=== PATIENT | male | born 1945 | race Caucasian/White ===

== ENCOUNTER 2017-02-18 17:41 | Inpatient (IN) ==
[2017-02-18] MEDS ORDERED: Naloxone 0.4 MG/ML INJ IVP PRN (21:32)
[2017-02-18] MEDS: Furosemide 40 MG/4 ML VIAL IVP SCH (22:04)
[2017-02-18] MEDS ORDERED: *HR* Dextrose 50 % in Water (Syg) 50 ML SYRINGE IVP PRN (22:09)
[2017-02-18] MEDS ORDERED: D5% in Water 1,000 ML IVC PRN (22:09)
[2017-02-18] MEDS ORDERED: Dextrose Gel 15 GM PO PRN ×2 (22:09)
--- NOTE | 2017-02-18 22:15 | Internal Med History&Physical ---
Date of Encounter: 02/18/17 Time of Encounter: 22:11 Assessment and Plan (1) Acute on chronic combined systolic and diastolic CHF, NYHA class 2 Current visit: Yes Status: Acute Patient with increased shortness of breath, chest tightness on exertion, and weight gain. BNP elevated to 691. Chest xray with small bilateral pleural effusions. Most recent echo 09/24/16 shows LVEF 35%, moderate global LV systolic dysfunction and mild LV diastolic dysfunction. 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 (2) Chest pain Current visit: Yes Status: Acute Patient reporting chest tightness with exertion accompanied by shortness of breath over the last 4-5 days. Patient has significant history of coronary artery disease, and congestive heart failure, ischemic cardiomyopathy. BNP elevated at 691, troponin normal at 0.01. EKG with sinus rhythm no changes from previous. Chest x-ray showed small bilateral pleural effusions. Chest tightness likely related to acute exacerbation of congestive heart failure, however will rule out ACS. 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 His creatinine is not out of line with previous values, however will consider this JESSICA. ABG due to cardio-renal with acute exacerbation of congestive heart failure. Lasix given for diuresis for congestive heart failure may or may not exacerbate the JESSICA. Check chemistry daily (5) CAD (coronary artery disease) Current visit: Yes Status: Chronic Patient with history of CAD with stents to LAD and Circumflex. He follows with Dr. Leyva as an outpatient. Continue betablocker, aspirin, Statin and imdur. Qualifiers: Coronary Disease-Associated Artery/Lesion type: [place] artery [place] vs. transplanted heart: [place] heart Associated angina: with stable angina Qualified Code(s): I25.118 - Atherosclerotic heart disease of [place] coronary artery with other forms of angina pectoris (6) Obstructive sleep apnea of adult Current visit: Yes Status: Chronic Respiratory therapy consulted for CPAP (7) DVT prophylaxis Current visit: Yes Status: Acute Antiembolic stockings Patient on Levaquin for history of paroxysmal atrial fibrillation, and additional prophylaxis not warranted Internal Medicine - H&P: HPI Chief complaint: shortness of breath and chest tightness Admitted From: Hospital to Hospital Transfer Plans for Post Hospital Care: Home History of present illness: Mr. Stout is a 71 year old male with type 2 diabetes, hypertension, paroxysmal atrial fibrillation coronary artery disease status post stents to LAD and circumflex, ischemic cardiomyopathy, congestive heart failure who presented to [facility] with complaints of shortness of breath on exertion, chest tightness on exertion, and weight gain. Patient reports that he noted increased shortness of breath about 4-5 days ago which has been worsening over time. He also reports chest tightness with activity in the last 4-5 days as well. He thinks he has gained about 6 pounds in the last 3 weeks. He denies any lightheadedness, headache, palpitations, wheezing, fever, chills, sweats. Patient does report a cough over the last week, nonproductive. Patient denies any nausea, vomiting, abdominal pain. Evaluation in the [facility] revealed elevated BNP of 691, normal troponin of 0.01. Creatinine was elevated at 1.39, up from previous value of 1.20, but not out of line with previous values. Chest x-ray showed bilateral pleural effusions. EKG shows sinus rhythm with no changes from previous. Patient reports he follows with Dr. Zamarripa as an outpatient and saw him last month. On my assessment, patient reports he is feeling much better. On exam, patient alert and oriented, in no acute distress. Heart has regular rate and rhythm. Lungs with mild crackles in bilateral bases. Abdomen soft nontender. Bilateral lower extremities with + 2 pitting edema. Past Med Surg Social Fam HX - Past Medical History Medical history: arthritis, cancer, cardiomyopathy, CHF, coronary artery disease , diabetes, GERD, hypertension, thyroid disease Psychiatric history: no psych history - Past Surgical History Surgical History: angioplasty/stent, cancer surgery, herniorrhaphy, orthopedic, other, thyroidectomy, other - Social History Smoking Status: Never smoker Smokeless Tobacco Status: No Alcohol use: none Drug use: none - Family History Father Living Status: Hx Family Cardiac Disorders: Yes Hx Family Cancer: No Hx Family GI Disorders: No Mother Living Status: Still Living Internal Medicine - H&P: Meds Gabapentin [Neurontin] 600 mg PO TID 03/23/15 [History] Levothyroxine [Synthroid] 200 mcg PO DAILY 03/23/15 [History] Loratadine [Claritin] 10 mg PO DAILY 03/23/15 [History] Aspirin 81 mg PO DAILY tab.chew 04/03/15 [Rx] Atorvastatin [Lipitor] 40 mg PO HS #30 tablet 04/03/15 [Rx] metFORMIN [Glucophage] 1,000 mg PO BID 07/07/16 [History] Apixaban [Eliquis] 2.5 mg PO BID #30 tablet 07/14/16 [Rx] Carvedilol [Coreg] 6.25 mg PO BIDWM #60 tablet 07/14/16 [Rx] Fluticasone Propionate Nasal [Flonase] 50 mcg NS BID bottle 07/14/16 [Rx] Isosorbide MONOnitrate (24 HR) [Imdur] 30 mg PO DAILY #30 tab.er.24h 07/14/16 [ Rx] Montelukast [Singulair] 10 mg PO HS #30 tablet 07/14/16 [Rx] Nicotine Patch [Nicoderm] 21 mg TD DAILY PRN #30 patch.td24 07/14/16 [Rx] OxyCODONE Immed Rel [Roxicodone 5 MG] 10 mg PO Q6HR PRN #20 tablet 07/14/16 [Rx] Spironolactone [Aldactone] 12.5 mg PO DAILY #30 tablet 07/14/16 [Rx] Valsartan [Diovan] 80 mg PO DAILY #30 tablet 07/14/16 [Rx] predniSONE [PredniSONE] 40 mg PO DAILY #30 tablet 07/14/16 [Rx] Benzonatate [Tessalon] 100 mg PO PRN 02/18/17 [History] DiphenhydraMINE [Benadryl] 25 mg PO HS PRN 02/18/17 [History] Furosemide [Lasix] 20 mg PO HS 02/18/17 [History] Furosemide [Lasix] 40 mg PO QAM 02/18/17 [History] Insulin DETEMIR [Levemir] 60 unit SQ DAILY 02/18/17 [History] Allergies Penicillins Allergy (Verified 03/23/15 09:54) Hives ERNST Inhibitors Adverse Reaction (Verified 03/23/15 09:53) Cough All Systems PM: A 10-system review of systems was performed and is negative for pertinent findings except as documented above in the HPI. - Constitutional Constitutional: no chills, no fever(s), no night sweats - EENT Eyes: no change in vision, no discharge, no pain, no photophobia Ears: no ear discharge, no ear pain, no tinnitus Nose, mouth and throat: no dysphagia, no nasal discharge, no neck pain, no sore throat - Cardiovascular Cardiovascular ROS IM: chest pain, dyspnea, dyspnea on exertion, no diaphoresis , no lightheadedness, no palpitations, no syncope - Respiratory Respiratory: cough, dyspnea, dyspnea on exertion, no wheezing, no excessive phlegm production - Gastrointestinal Gastrointestinal: no abdominal pain, no diarrhea, no hematemesis, no hematochezia, no melena, no nausea, no vomiting - Musculoskeletal Musculoskeletal ROS IM: no numbness, no tingling - Integumentary Integumentary IM: no rash, no unusual bruising - Neurological Neurological ROS: no confusion, no convulsions, no focal weakness, no numbness, no tingling, no tremor(s) - Hematologic/Lymphatic Hematologic/Lymphatic: no easy bruising - Constitutional Vitals: Temp Pulse Resp BP Pulse Ox 97.8 F 77 19 180/104 98 02/18/17 20:17 02/18/17 20:17 02/18/17 20:17 02/18/17 20:17 02/18/17 20:17 General appearance: Present: A&O X 3, morbidly obese, pleasant, no acute distress - Head Head exam: Present: atraumatic, normocephalic - Eye Eye exam: Present: PERRL, conjuntiva pink, sclera anicteric Pupils: Present: PERRL - Neck Neck exam general surgery: Present: supple, trachea midline. Absent: lymphadenopathy - Respiratory Respiratory exam: Present: rales (mild in bilateral bases). Absent: accessory muscle use, rhonchi, wheezes - Cardiovascular Cardiovascular exam: Present: RRR, +S1, +S2. Absent: diastolic murmur, gallop, rubs, systolic murmur - GI/Abdominal GI/Abdominal exam: Present: normal bowel sounds, soft, no peritoneal signs. Absent: distended, tenderness - Extremities Exam Extremities exam: Present: pedal edema (+2 BLE edema), warm, radial pulses palpable and symetrical. Absent: calf tenderness, cyanotic - Neurological Exam Neurological exam: Present: CN II-XII intact, oriented X3, no focal deficits. Absent: pronater drift, facial droop, speech deficit - Skin Skin exam: Present: dry, intact Internal Med - H&P Results - Labs Labs: Labs from [facility]: WBC 7.2 Hgb 12.5 Hct 36.8 Plt 201 Na 142 K 4.0 Cl 105 Co2 25 BUN 26 Cr 1.39 Glu 199 BNP 691 Trop 0.01
[2017-02-18] MEDS: Insulin LISPRO 300 UNITS/3 ML VIAL SQ SCH (22:36)
[2017-02-18] MEDS: Gabapentin 300 MG CAPSULE PO SCH (22:38)
[2017-02-18] MEDS: APIXABAN 5 MG TABLET PO SCH (22:38)
[2017-02-19 06:13] LABS: Basophils # 0.1 K/mcL (0.0-0.2); Basophils % 0.8 %; Eosinophils # 0.2 K/mcL (0.0-0.6); Eosinophils % 2.6 %; Hematocrit 39.2 % (37.5-50.1); Hemoglobin 12.5 g/dL (12.9-16.9); Immature Granulocytes % 0.5 % (0-4); Lymphocytes # 2.3 K/mcL (0.6-4.6); Lymphocytes % 31.1 %; Mean Corpuscular HGB Conc 31.9 g/dL (31.6-35.5); Mean Corpuscular Hemoglobin 27.4 pg (28.0-33.3); Mean Corpuscular Volume 85.8 fL (83.0-100.0); Mean Platelet Volume 10.8 fL (9.4-12.4); Monocytes # 0.7 K/mcL (0.0-1.3); Neutrophils # 4.1 K/mcL (1.6-8.9); Platelet Count 221 K/mcL (140-400); Red Blood Count 4.57 M/mcL (4.19-5.50); Red Cell Distribution Width 13.6 % (11.5-14.5)
[2017-02-19] MEDS: Acetaminophen 325 MG TABLET PO PRN (06:28)
[2017-02-19 06:45] LABS: Hemoglobin A1C 9.2 %
[2017-02-19 07:00] LABS: BUN/Creatinine Ratio 20 (6-26); Blood Urea Nitrogen 26 mg/dL (8-26); Calcium 7.6 mg/dL (8.6-10.8); Carbon Dioxide 27 mEq/L (19-29); Chloride 104 mEq/L (98-109); Glucose 243 mg/dL (70-99); Osmolality,Calculated 303 (280-300); Sodium 140 mEq/L (136-145); eGFR For African Americans > 60 (> 60); eGFR For Non-African Americans 55 (> 60)
[2017-02-19] MEDS: APIXABAN 5 MG TABLET PO SCH ×2 (09:16→20:29)
[2017-02-19] MEDS: Aspirin 81 MG TAB.CHEW PO SCH (09:19)
[2017-02-19] MEDS: Isosorbide MONOnitrate (24 HR) 30 MG TAB.ER.24H PO SCH (09:19)
[2017-02-19] MEDS: Gabapentin 300 MG CAPSULE PO SCH ×3 (09:23→20:29)
[2017-02-19] MEDS: Furosemide 40 MG/4 ML VIAL IVP SCH ×2 (09:24→16:54)
[2017-02-19] MEDS: Insulin LISPRO 300 UNITS/3 ML VIAL SQ SCH ×4 (09:25→21:58)
[2017-02-19] MEDS: Insulin DETEMIR 100 UNIT/ML X5UNITS SQ SCH (10:18)
--- NOTE | 2017-02-19 18:52 | Internal Med Progress Note ---
Date of Encounter: 02/19/17 Time of Encounter: 16:00 - Assessment and plan (1) Congestive heart failure Current Visit: No Status: Acute Assessment and plan: Acute on chronic combined heart failure. Patient's last echocardiogram was in September and revealed an ejection fraction 35%. He is also on diuretics at home. Pleural effusion noted, he has had to have thoracenteses in the past, will obtain chest CT. We will continue to diurese with IV furosemide. (2) Pleural effusion Current Visit: No Status: Acute Assessment and plan: See prior note for CHF (3) Generalized weakness Current Visit: Yes Status: Acute Assessment and plan: Patient stating he was in inpatient rehabilitation up until approximately 10-12 weeks ago. He states that he feels as if he was discharged to early. We will bring OT and PT on board. (4) Coronary artery disease Current Visit: No Status: Chronic Qualifiers: Coronary Disease-Associated Artery/Lesion type: [place] artery [place] vs. transplanted heart: [place] heart Associated angina: without angina Qualified Code(s): I25.10 - Atherosclerotic heart disease of [place] coronary artery without angina pectoris (5) Cough Current Visit: No Status: Acute Assessment and plan: Acute on chronic. Currently nonproductive. Chest CT pending. We will continue diuresing. He is a never smoker (6) KENDRA (obstructive sleep apnea) Current Visit: No Status: Chronic Assessment and plan: Patient stating he was compliant with his CPAP machine until he returned from being at inpatient rehabilitation approximate 10-12 weeks ago and he states that when he got home, he never hooked the machine back up. This is likely contributing to a lot of his symptoms including daytime fatigue and weakness. We will order CPAP while admitted. (7) DVT prophylaxis Current Visit: Yes Status: Acute Assessment and plan: home eliquis continued (8) Acute respiratory failure Current Visit: No Status: Acute Assessment and plan: Patient is not on oxygen at home, currently on 2 L per nasal cannula continuously here. Chest imaging pending. We will continue to diurese. CPAP at bedtime. (9) CAD (coronary artery disease), [place] coronary artery Current Visit: No Status: Chronic Assessment and plan: Patient denies chest pain Qualifiers: [place] vs. transplanted heart: [place] heart Associated angina: angina presence unspecified Qualified Code(s): I25.10 - Atherosclerotic heart disease of [place] coronary artery without angina pectoris (10) Hypertension Current Visit: No Status: Chronic Assessment and plan: Uncontrolled. At home, patient is on Imdur 30 mg daily, furosemide, carvedilol 25 mg twice a day. Renal functioning is stable. He has a listed intolerance to irene inhibitors with cough. Will add losartan. Hydralazine IV as needed Qualifiers: Hypertension type: essential hypertension Qualified Code(s): I10 - Essential (primary) hypertension (11) Hypothyroidism Current Visit: No Status: Chronic Assessment and plan: TSH checked in June 2016, normal Qualifiers: Hypothyroidism type: postoperative Qualified Code(s): E89.0 - Postprocedural hypothyroidism (12) CKD (chronic kidney disease) stage 3, GFR 30-59 ml/min Current Visit: No Status: Chronic Assessment and plan: Consistent with his baseline, will continue to trend (13) Atrial fibrillation Current Visit: No Status: Chronic Assessment and plan: Rate controlled, Eliquis for anticoagulation Qualifiers: Atrial fibrillation type: chronic Qualified Code(s): I48.2 - Chronic atrial fibrillation (14) Type 2 diabetes mellitus Current Visit: Yes Status: Chronic Assessment and plan: Uncontrolled, A1c 9.2%. Continue sliding scale while admitted. 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 On examination, patient sitting upright on the side of his bed. Patient stating he is still short of breath but has improved since he has been here. He states that he has been feeling weak in the morning and progressively starts to feel better throughout the day. He is also endorsing a nonproductive cough. He denies lower extremity swelling. He said that he recently got out of inpatient rehabilitation approximately 10-12 weeks ago and he feels as if he was discharged to early. - Constitutional Vitals: Temp Pulse Resp BP Pulse Ox 97.8 F 76 20 176/95 95 02/19/17 15:26 02/19/17 15:26 02/19/17 15:26 02/19/17 15:26 02/19/17 15:26 General appearance: Present: A&O X 3, morbidly obese, pleasant, no acute distress, answers questions appropriately - Head Head exam: Present: atraumatic, normocephalic - Eye Eye exam: Present: PERRL, conjuntiva pink, sclera anicteric Pupils: Present: PERRL - Neck Neck exam general surgery: Present: supple, trachea midline. Absent: lymphadenopathy - Respiratory Respiratory exam: Present: decreased breath sounds. Absent: accessory muscle use, rales, respiratory distress, rhonchi, wheezes - Cardiovascular Cardiovascular exam: Present: RRR, +S1, +S2. Absent: diastolic murmur, gallop, rubs, systolic murmur - GI/Abdominal GI/Abdominal exam: Present: distended, normal bowel sounds, soft, no peritoneal signs. Absent: tenderness - Extremities Exam Extremities exam: Present: pedal edema (trace, nonpitting), warm, radial pulses palpable and symetrical. Absent: calf tenderness, cyanotic - Neurological Exam Neurological exam: Present: alert, CN II-XII intact, oriented X3, no focal deficits, strengths equal and symetr throughout. Absent: pronater drift, facial droop, speech deficit - Skin Skin exam: Present: dry, intact, pallor, warm Internal Medicine: Result - Labs CBC & Chem 7: 02/19/17 03:51 02/19/17 03:51 Labs: Short CBC 02/19/17 Range/Units 03:51 WBC 7.3 (4.3-11.1) K/mcL Hgb 12.5 L (12.9-16.9) g/dL Hct 39.2 (37.5-50.1) % Plt Count 221 (140-400) K/mcL Neutrophils # 4.1 (1.6-8.9) K/mcL BMP 02/19/17 03:51 Sodium 140 Potassium 4.0 Chloride 104 Carbon Dioxide 27 BUN 26 Creatinine 1.29 H Glucose 243 H Calcium 7.6 L Cardiac Enzymes 02/18/17 02/19/17 Range/Units 22:04 03:51 Troponin I 0.02 0.02 (0-0.03) ng/mL Consult Discharge Plan - Plan Referrals: Saloni Lombardo, INTERNAL AUDIT DIRECTOR [Primary Care Provider] - 02/23/17 2:00 pm
[2017-02-20 06:03] LABS: Basophils # 0.1 K/mcL (0.0-0.2); Basophils % 1.1 %; Eosinophils # 0.2 K/mcL (0.0-0.6); Eosinophils % 2.6 %; Hematocrit 36.6 % (37.5-50.1); Immature Granulocytes % 0.5 % (0-4); Lymphocytes # 2.2 K/mcL (0.6-4.6); Lymphocytes % 33.8 %; Mean Corpuscular HGB Conc 32.8 g/dL (31.6-35.5); Mean Corpuscular Hemoglobin 28.1 pg (28.0-33.3); Mean Corpuscular Volume 85.7 fL (83.0-100.0); Mean Platelet Volume 10.9 fL (9.4-12.4); Monocytes # 0.7 K/mcL (0.0-1.3); Monocytes % 9.8 %; Neutrophils # 3.5 K/mcL (1.6-8.9); Platelet Count 190 K/mcL (140-400); Red Blood Count 4.27 M/mcL (4.19-5.50); Red Cell Distribution Width 13.8 % (11.5-14.5); Segmented Neutrophils % 52.2 %
[2017-02-20 06:08] LABS: BUN/Creatinine Ratio 22 (6-26); Blood Urea Nitrogen 21 mg/dL (8-26); Calcium 7.4 mg/dL (8.6-10.8); Carbon Dioxide 29 mEq/L (19-29); Chloride 104 mEq/L (98-109); Glucose 167 mg/dL (70-99); Osmolality,Calculated 297 (280-300); Potassium 3.2 mEq/L (3.5-4.5); Sodium 140 mEq/L (136-145); eGFR For African Americans > 60 (> 60); eGFR For Non-African Americans > 60 (> 60)
[2017-02-20] MEDS: APIXABAN 5 MG TABLET PO SCH (08:25)
--- NOTE | 2017-02-20 09:03 | Internal Med Progress Note ---
Date of Encounter: 02/20/17 Time of Encounter: 08:00 - Assessment and plan (1) Congestive heart failure Current Visit: No Status: Acute Assessment and plan: Acute on chronic combined heart failure. Patient's last echocardiogram was in September and revealed an ejection fraction 35%. He is also on diuretics at home. Pleural effusion noted on plain films and he has had to have thoracenteses in the past, so a chest CT was obtained which revealed moderate to large pleural effusion on the right and a small pleural effusion on the left. Pulmonology was brought on board however patient declines thoracentesis at this time. In review of his chart, back in 2014, patient had bilateral thoracenteses performed per IR but remained dyspneic so pulmonology was brought on board at that time who performed another thoracentesis and removed 700 mL of serosanguineous fluid at that time consistent with transudative effusion. He states that he does not feel as short of breath as he did last time and would like to avoid thoracentesis if possible. Pulmonology will remain on board. Possible Pleurx catheter outpatient to be considered. Patient was again educated on fluid and sodium restricted diet. In review of his chart, patient has been educated numerous times, but continues to be noncompliant. We will continue to diurese with IV furosemide. Renal functioning currently normal; will trend closely. ITS Impressions Chest x-ray from [place] impression: Atelectasis or infiltrate in the right lung base. Right pleural effusion. Small left effusion. 02/18/17 @14[address]. [address] 02/19/17 18:54 IMPRESSION: 1. Moderate to large right and small left pleural effusion and associated atelectasis. Effusions of slightly increased compared with prior exam from 2016. Consolidative changes within the right lung base do demonstrate some air bronchograms. Findings may reflect atelectasis associated with the effusion, however superimposed infectious process would be difficult to exclude in the appropriate clinical setting. 2. Moderate pericardial effusion which is slightly increased in size compared with previous exam. 3. Coronary artery atherosclerotic disease. 4. Cholelithiasis. D/ / Crispin Alvarez MD / Crispin Alvarez MD Interpreting Provider: Crispin Alvarez MD (2) Pleural effusion Current Visit: No Status: Acute Assessment and plan: See prior note for CHF. Patient declining thoracentesis at this time. Will continue to diurese (3) Pericardial effusion Current Visit: Yes Status: Acute Assessment and plan: Chest CT revealing moderate pericardial effusion increased from prior exam. Repeat echo ordered and is pending. Patient's last echo was in September revealed an ejection fraction 35%. Cardiology brought on board. ITS Impressions Chest CT 02/19/17 18:54 IMPRESSION: 1. Moderate to large right and small left pleural effusion and associated atelectasis. Effusions of slightly increased compared with prior exam from 2016. Consolidative changes within the right lung base do demonstrate some air bronchograms. Findings may reflect atelectasis associated with the effusion, however superimposed infectious process would be difficult to exclude in the appropriate clinical setting. 2. Moderate pericardial effusion which is slightly increased in size compared with previous exam. 3. Coronary artery atherosclerotic disease. 4. Cholelithiasis. D/ / Crispin Alvarez MD / Crispin Alvarez MD Interpreting Provider: Crispin Alvarez MD (4) Generalized weakness Current Visit: Yes Status: Acute Assessment and plan: Patient stating he was in inpatient rehabilitation up until approximately 10-12 weeks ago. He states that he feels as if he was discharged to early from rehab. OT and PT brought on board- awaiting recommendations. (5) Coronary artery disease Current Visit: No Status: Chronic Qualifiers: Coronary Disease-Associated Artery/Lesion type: [place] artery [place] vs. transplanted heart: [place] heart Associated angina: without angina Qualified Code(s): I25.10 - Atherosclerotic heart disease of [place] coronary artery without angina pectoris (6) Cough Current Visit: No Status: Acute Assessment and plan: Acute on chronic. Currently nonproductive. Chest CT revealing pleural effusions. We will continue diuresing. He is a never smoker and is not on oxygen at home. He has also been noncompliant with his CPAP. (7) KENDRA (obstructive sleep apnea) Current Visit: No Status: Chronic Assessment and plan: Patient stating he was compliant with his CPAP machine until he returned from being at inpatient rehabilitation approximate 10-12 weeks ago and he states that when he got home, he never hooked the machine back up. This is likely contributing to a lot of his symptoms including daytime fatigue and weakness. We will order CPAP while admitted. (8) DVT prophylaxis Current Visit: Yes Status: Acute Assessment and plan: home eliquis currently being held for possible thoracentesis- will order IPCs (9) Acute respiratory failure Current Visit: No Status: Acute Assessment and plan: Patient is not on oxygen at home, currently on 2 L per nasal cannula continuously here. We will continue to diurese. CPAP at bedtime. (10) CAD (coronary artery disease), [place] coronary artery Current Visit: No Status: Chronic Assessment and plan: Patient denies chest pain Qualifiers: [place] vs. transplanted heart: [place] heart Associated angina: angina presence unspecified Qualified Code(s): I25.10 - Atherosclerotic heart disease of [place] coronary artery without angina pectoris (11) Hypertension Current Visit: No Status: Chronic Assessment and plan: Uncontrolled. At home, patient is on Imdur 30 mg daily, furosemide, carvedilol 25 mg twice a day. Renal functioning is stable. He has a listed intolerance to irene inhibitors with cough. Losartan added to his regimen. Hydralazine IV as needed. Will continue to trend and adjust medications accordingly. Qualifiers: Hypertension type: essential hypertension Qualified Code(s): I10 - Essential (primary) hypertension (12) Hypothyroidism Current Visit: No Status: Chronic Assessment and plan: TSH checked in June 2016, normal Qualifiers: Hypothyroidism type: postoperative Qualified Code(s): E89.0 - Postprocedural hypothyroidism (13) CKD (chronic kidney disease) stage 3, GFR 30-59 ml/min Current Visit: No Status: Chronic Assessment and plan: Current renal functioning normal- will trend closely with diuresis. (14) Atrial fibrillation Current Visit: No Status: Chronic Assessment and plan: Rate controlled, Eliquis for anticoagulation- held/IPCs ordered Qualifiers: Atrial fibrillation type: chronic Qualified Code(s): I48.2 - Chronic atrial fibrillation (15) Type 2 diabetes mellitus Current Visit: Yes Status: Chronic Assessment and plan: Uncontrolled, A1c 9.2%. Continue sliding scale while admitted. Qualifiers: Diabetes mellitus complication status: with unspecified complications Diabetes mellitus detention insulin use: with terminal system operator use Qualified Code(s) : E11.8 - Type 2 diabetes mellitus with unspecified complications; Z79.4 - long term care phlebotomist (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 (16) Hypokalemia Current Visit: Yes Status: Acute Assessment and plan: Mild, will replete and trend (17) Morbid obesity with BMI of 40.0-44.9, adult Current Visit: Yes Status: Chronic - Subjective Interval history: Patient seen and examined. On examination, patient sitting upright in bed. He states he did not sleep very well last night. He states he is tired. He states he is still short of breath and states he feels "about the same" as yesterday. He states he is eating well. - Constitutional Vitals: Temp Pulse Resp BP Pulse Ox 98.5 F 79 17 171/99 94 02/20/17 07:34 02/20/17 07:34 02/20/17 07:34 02/20/17 07:34 02/20/17 07:34 General appearance: Present: mild distress, A&O X 3, morbidly obese, pleasant, answers questions appropriately - Head Head exam: Present: atraumatic, normocephalic - Eye Eye exam: Present: PERRL, conjuntiva pink, sclera anicteric Pupils: Present: PERRL - Neck Neck exam general surgery: Present: supple, trachea midline. Absent: lymphadenopathy - Respiratory Respiratory exam: Present: accessory muscle use, decreased breath sounds, respiratory distress (mild dyspnea with conversation), rhonchi. Absent: rales, wheezes - Cardiovascular Cardiovascular exam: Present: RRR, +S1, +S2. Absent: diastolic murmur, gallop, rubs, systolic murmur - GI/Abdominal GI/Abdominal exam: Present: distended, normal bowel sounds, soft, no peritoneal signs. Absent: tenderness - Extremities Exam Extremities exam: Present: pedal edema (trace, nonpitting), warm, radial pulses palpable and symetrical. Absent: calf tenderness, cyanotic - Neurological Exam Neurological exam: Present: alert, CN II-XII intact, oriented X3, no focal deficits, strengths equal and symetr throughout. Absent: pronater drift, facial droop, speech deficit - Skin Skin exam: Present: dry, intact, pallor, warm Internal Medicine: Result - Labs CBC & Chem 7: 02/20/17 04:47 02/20/17 04:47 Labs: Short CBC 02/20/17 Range/Units 04:47 WBC 6.6 (4.3-11.1) K/mcL Hgb 12.0 L (12.9-16.9) g/dL Hct 36.6 L (37.5-50.1) % Plt Count 190 (140-400) K/mcL Neutrophils # 3.5 (1.6-8.9) K/mcL BMP 02/20/17 04:47 Sodium 140 Potassium 3.2 L Chloride 104 Carbon Dioxide 29 BUN 21 Creatinine 0.94 Glucose 167 H Calcium 7.4 L - Impressions Impressions Chest CT 02/19/17 18:54 IMPRESSION: 1. Moderate to large right and small left pleural effusion and associated atelectasis. Effusions of slightly increased compared with prior exam from 2016. Consolidative changes within the right lung base do demonstrate some air bronchograms. Findings may reflect atelectasis associated with the effusion, however superimposed infectious process would be difficult to exclude in the appropriate clinical setting. 2. Moderate pericardial effusion which is slightly increased in size compared with previous exam. 3. Coronary artery atherosclerotic disease. 4. Cholelithiasis. D/ / Crispin Alvarez MD / Crispin Alvarez MD Interpreting Provider: Crispin Alvarez MD Consult Discharge Plan - Plan Referrals: Saloni Lombardo CNP [Primary Care Provider] - 02/23/17 2:00 pm
[2017-02-20] MEDS: Insulin LISPRO 300 UNITS/3 ML VIAL SQ SCH ×4 (09:08→21:14)
[2017-02-20] MEDS: Gabapentin 300 MG CAPSULE PO SCH ×3 (09:53→21:14)
[2017-02-20] MEDS: Insulin DETEMIR 100 UNIT/ML X5UNITS SQ SCH (09:53)
[2017-02-20] MEDS: Furosemide 40 MG/4 ML VIAL IVP SCH ×2 (09:53→16:56)
[2017-02-20] MEDS: Isosorbide MONOnitrate (24 HR) 30 MG TAB.ER.24H PO SCH (09:53)
[2017-02-20] MEDS: Aspirin 81 MG TAB.CHEW PO SCH (09:53)
--- NOTE | 2017-02-20 13:59 | Cardiology Consult Note ---
Date of Encounter: 02/20/17 Time of Encounter: 13:54 Assessment and Plan (1) Pericardial effusion Current Visit: Yes Status: Acute CT scan showed moderate pericardial effusion which is slightly increased in size compared with previous exam. TTE 04/2016 showed small pericardial effusion with no tamponade and TTE 09/2016 did not mention pericardial effusion. Agree with checking TTE to better evaluate. He is currently hemodynamically stable. (2) Ischemic cardiomyopathy Current Visit: No Status: Acute (3) Coronary artery disease Current Visit: No Status: Chronic H/o previous cardiac stents. Last [facility] in 2014. Continue asa, statin, and bb. He denies chest pain. Qualifiers: Coronary Disease-Associated Artery/Lesion type: [place] artery [place] vs. transplanted heart: [place] heart Associated angina: without angina Qualified Code(s): I25.10 - Atherosclerotic heart disease of [place] coronary artery without angina pectoris (4) Acute on chronic combined systolic and diastolic congestive heart failure Current Visit: Yes Status: Acute Acute on chronic systolic and diastolic CHF. EF 41% on MRI 05/2016. 35% on TTE . CHF Likely exacerbated by increased salt and fluid intake. Agree with IV lasix. Found to have mod-large pericardial effusion on CT. Pulmonology following. Strict I&O and daily weights. Low sodium diet reviewed. Fluid restriction reviewed. Continue carvedilol. Increase cozaar for hypertension. Discussion w patient/family: The assessment and plan as outlined above was discussed with the patient and/or family members who expressed understanding and agreement. All questions were answered. Thank you for involving us in the care of your patient. Please call with any questions. History of Present Illness Consult date: 02/20/17 Requesting physician: Anna Tripp Consult reason: Pericardial effusion Chief complaint: SOB, orthopnea, and BLE increasing over past week and a half. History of present illness: Mr. Stout is a 71 year old male with a history of CAD, s/p PCI to LAD and circumflex arteries (03/2015), ischemic CMP , chronic systolic and diastolic CHF , CKD, DM, KENDRA/CPAP, PAF on eliquis, and HTN. He presented to the hospital with the c/o increasing SOB, BLE edema, and orthopnea over the past 10 days. He admits to increase fluid and salt intake over the past week. Previous cardiac testing: [facility] 03/23/2015: Left main normal. LAD mid 99% stenosis (SUDHA placed). Circumflex mid 95% stenosis (SUDHA placed). RCA normal (small, nondominant). TTE 08/01/2015: EF 35-40%. Small pericardial effusion. Limited echocardiogram 05/07/2016: EF 35%. Mild concentric LVH. Small pericardial effusion. TTE 09/2016: EF 35%. Borderline dilate LV size. Mild concentric LV hypertrophy. Moderate global LV systolic dysfunction. Mild LV diastolic dysfunction. Normal RV structure and function. Severely dilated left atrium. No evidence of pulmonary hypertension. No significant valvular dysfunction. Cardiac MRI 06/03/2016: EF 41%. Mildly dilated left ventricle with mild to moderate LV systolic dysfunction. Mild to moderate concentric LVH. Delayed gadolinium enhancement most recent normal myocardium. All segments are completely viable. Normal RV size and function. Trileaflet aortic valve with restriction in movement of the noncoronary leaflet. No aortic regurgitation. No significant aortic stenosis. Small to moderate circumferential pericardial effusion. Past Med Surg Social Fam HX - Past Medical History Medical history: arthritis, cancer, cardiomyopathy, CHF, coronary artery disease , diabetes, GERD, hypertension, thyroid disease Psychiatric history: no psych history - Past Surgical History Surgical History: angioplasty/stent, cancer surgery, herniorrhaphy, orthopedic, other, thyroidectomy, other - Social History Smoking Status: Never smoker Smokeless Tobacco Status: No Alcohol use: none Drug use: none - Family History Mother Living Status: Still Living Father Living Status: Hx Family Cardiac Disorders: Yes Hx Family Cancer: No Hx Family GI Disorders: No Medications and Allergies Gabapentin [Neurontin] 600 mg PO TID 03/23/15 [History] Levothyroxine [Synthroid] 200 mcg PO DAILY 03/23/15 [History] Aspirin 81 mg PO DAILY tab.chew 04/03/15 [Rx] Atorvastatin [Lipitor] 40 mg PO HS #30 tablet 04/03/15 [Rx] metFORMIN [Glucophage] 1,000 mg PO BID 07/07/16 [History] Apixaban [Eliquis] 2.5 mg PO BID #30 tablet 07/14/16 [Rx] Isosorbide MONOnitrate (24 HR) [Imdur] 30 mg PO DAILY #30 tab.er.24h 07/14/16 [ Rx] Montelukast [Singulair] 10 mg PO HS #30 tablet 07/14/16 [Rx] Benzonatate [Tessalon] 100 mg PO TID PRN 02/18/17 [History] DiphenhydraMINE [Benadryl] 25 mg PO HS PRN 02/18/17 [History] Furosemide [Lasix] 20 mg PO HS 02/18/17 [History] Furosemide [Lasix] 40 mg PO QAM 02/18/17 [History] Insulin DETEMIR [Levemir] 60 unit SQ DAILY 02/18/17 [History] Calcium Carbonate/Vitamin D3 [Calcium 600 + Vit D Tablet] 1 tab PO DAILY [History] Carvedilol [Coreg] 25 mg PO BID 02/19/17 [History] Docusate [Colace] 100 mg PO DAILY PRN 02/19/17 [History] Fluticasone Propionate Nasal [Flonase] 1 spray NS BID PRN 02/19/17 [History] Insulin LISPRO [HumaLOG] 0 units SQ TIDWM MDD PER SLIDING SCALE 02/19/17 [ History] Potassium Chloride [Klor-Con 10] 20 meq PO DAILY 02/19/17 [History] Allergies Penicillins Allergy (Verified 03/23/15 09:54) Hives ERNST Inhibitors Adverse Reaction (Verified 03/23/15 09:53) Cough All Systems Review: A 10-system review of systems was performed and is negative for pertinent findings except as documented above in the HPI. Physical Examination Vital Signs, Last 4 Hours Temp Pulse Resp BP Pulse Ox 02/20/17 12:33 93 02/20/17 11:13 98.1 F 80 19 176/99 94 General: Conversant, No Apparent Distress, Other (Unkept male.) HEENT: Atraumatic, Normocephaly, Mucus Membranes Moist Neck: No JVD, Normal carotid pulses Cardiac: Reg Rate and Rhythm, Normal S1 and S2, No Murmur, Other (currently NSR on telemetry) Lungs: No Wheeze, Rales, Rhonchi, Other (Lungs diminished on right. ) Neuro: Alert and responsive, No focal deficits noted Abdomen: Soft, Non-Tender Skin: No rashes noted on visualized skin Musculoskeletal: No Chest Wall Tenderness Extremities: No Clubbing, No Cyanosis, Normal Pulses, Other (1+ edema up to knees.) Results 02/20/17 04:47 02/20/17 04:47 Lab Results 02/20/17 02/20/17 04:47 04:47 WBC 6.6 Hgb 12.0 L Hct 36.6 L Plt Count 190 Sodium 140 Potassium 3.2 L Chloride 104 Carbon Dioxide 29 BUN 21 Creatinine 0.94 Glucose 167 H Calcium 7.[address] 02/19/17 18:54 IMPRESSION: 1. Moderate to large right and small left pleural effusion and associated atelectasis. Effusions of slightly increased compared with prior exam from 2016. Consolidative changes within the right lung base do demonstrate some air bronchograms. Findings may reflect atelectasis associated with the effusion, however superimposed infectious process would be difficult to exclude in the appropriate clinical setting. 2. Moderate pericardial effusion which is slightly increased in size compared with previous exam. 3. Coronary artery atherosclerotic disease. 4. Cholelithiasis. D/ / Crispin Alvarez MD / Crispin Alvarez MD Interpreting Provider: Crispin Alvarez MD - Imaging and Cardiology Echo: report reviewed Cardiac cath: report reviewed - EKG Interpretation EKG results cardiology: personally reviewed (Sr with no acute ST changes.) Consult Discharge Plan - Plan Referrals: Saloni Lombardo, GENE [Primary Care Provider] - 02/23/17 2:00 pm
[2017-02-20] MEDS ORDERED: Perflutren Lipid Microsphere 1.3 ML in 0.9 % Sodium Chloride 8.7 ML IVP ONE (15:44)
--- NOTE | 2017-02-20 15:57 | Pulmonology Consult Note ---
Date of Encounter: 02/20/17 Time of Encounter: 07:45 Assessment and Plan (1) Pleural effusion due to CHF (congestive heart failure) Current Visit: No Status: Chronic I have personally reviewed CT images with evidence of bilateral pleural effusion and discussed with the patient in the presence of the nurse and the primary team about thoracentesis for mainly therapeutic reasons and to help his shortness of breath, however patient declined and stated his breathing is stable and does not feel he needs any procedures at this time. Patient is on anticoagulation and it will need to be on hold for at least 24 hours if patient decided to have the procedure. More importantly I feel he might benefit from Pleurx pleural catheter to manage his chronic pleural effusion which can be done as outpatient. Primary team to call and we will follow-up should patient has more distress and changed his mind regarding thoracentesis. (2) Stented coronary artery Current Visit: No Status: Resolved (3) Obstructive sleep apnea of adult Current Visit: Yes Status: Chronic This can be managed as outpatient. (4) Pleural effusion Current Visit: No Status: Acute History of Present Illness Consult date: 02/20/17 Requesting physician: Anna Tripp Reason for consult: pleural effusion Chief complaint: Shortness of breath History of present illness: This is a pleasant 71-year-old male with multiple medical problems, mainly cardiovascular with ischemic cardiomyopathy and was found to have bilateral pleural effusion with pericardial effusion on his CT chest and pulmonary consult for evaluation of thoracentesis. Patient stated he had thoracentesis in the past and he had major bleeding after the procedure and might have helped his breathing at that time. Patient is on anticoagulation for his paroxysmal atrial fibrillation. At this time he denies any significant distress and his breathing and he feels fluid is not large enough for drainage. Patient reports some cough over the last week which is nonproductive and denies any nausea or vomiting and denies any hemoptysis. Patient noticed increased shortness of breath over 5 days. Patient also noticed leg swelling. He has chronic joint pain but denies any rash. Patient also has diagnosis of obstructive sleep apnea and is not clear to me at this time how compliant he is with his machine. Past Med Surg Social Fam HX - Past Medical History Medical history: arthritis, cancer, cardiomyopathy, CHF, coronary artery disease , diabetes, GERD, hypertension, thyroid disease Psychiatric history: no psych history - Past Surgical History Surgical History: angioplasty/stent, cancer surgery, herniorrhaphy, orthopedic, other, thyroidectomy, other - Social History Smoking Status: Never smoker Smokeless Tobacco Status: No Alcohol use: none Drug use: none - Family History Mother Living Status: Still Living Father Living Status: Hx Family Cardiac Disorders: Yes Hx Family Cancer: No Hx Family GI Disorders: No Medications and Allergies Gabapentin [Neurontin] 600 mg PO TID 03/23/15 [History] Levothyroxine [Synthroid] 200 mcg PO DAILY 03/23/15 [History] Aspirin 81 mg PO DAILY tab.chew 04/03/15 [Rx] Atorvastatin [Lipitor] 40 mg PO HS #30 tablet 04/03/15 [Rx] metFORMIN [Glucophage] 1,000 mg PO BID 07/07/16 [History] Apixaban [Eliquis] 2.5 mg PO BID #30 tablet 07/14/16 [Rx] Isosorbide MONOnitrate (24 HR) [Imdur] 30 mg PO DAILY #30 tab.er.24h 07/14/16 [ Rx] Montelukast [Singulair] 10 mg PO HS #30 tablet 07/14/16 [Rx] Benzonatate [Tessalon] 100 mg PO TID PRN 02/18/17 [History] DiphenhydraMINE [Benadryl] 25 mg PO HS PRN 02/18/17 [History] Furosemide [Lasix] 20 mg PO HS 02/18/17 [History] Furosemide [Lasix] 40 mg PO QAM 02/18/17 [History] Insulin DETEMIR [Levemir] 60 unit SQ DAILY 02/18/17 [History] Calcium Carbonate/Vitamin D3 [Calcium 600 + Vit D Tablet] 1 tab PO DAILY [History] Carvedilol [Coreg] 25 mg PO BID 02/19/17 [History] Docusate [Colace] 100 mg PO DAILY PRN 02/19/17 [History] Fluticasone Propionate Nasal [Flonase] 1 spray NS BID PRN 02/19/17 [History] Insulin LISPRO [HumaLOG] 0 units SQ TIDWM MDD PER SLIDING SCALE 02/19/17 [ History] Potassium Chloride [Klor-Con 10] 20 meq PO DAILY 02/19/17 [History] Allergies Penicillins Allergy (Verified 03/23/15 09:54) Hives ERNST Inhibitors Adverse Reaction (Verified 03/23/15 09:53) Cough All Systems: A 10-system review of systems was performed and is negative for pertinent findings except as documented above in the HPI. Physical Examination Vital Signs: Vital Signs, Last 4 Hours Pulse Ox 02/20/17 12:33 93 General appearance: no acute distress Eyes: nonicteric ENT: oropharynx moist Mallampati (class): 3 Neck: supple, no lymphadenopathy, JVD Effort: normal Inspection: normal Auscultation: bilateral: diminished breath sounds (Mainly in the bases) Percussion: bilateral: dull Cardiovascular: irregular rhythm Gastrointestinal: normoactive bowel sounds, soft Extremities: no cyanosis, edema normal mental status, non-focal exam mood appropriate Results - Laboratory Findings CBC and BMP: 02/20/17 04:47 02/20/17 04:47 Abnormal lab findings: Abnormal lab results Hgb 12.0 g/dL (12.9-16.9) L 02/20/17 04:47 Hct 36.6 % (37.5-50.1) L 02/20/17 04:47 Potassium 3.2 mEq/L (3.5-4.5) L 02/20/17 04:47 Glucose 167 mg/dL (70-99) H 02/20/17 04:47 POC Glucose 210 (58-89) H 02/19/17 20:47 Hemoglobin A1c 9.2 % (-5.6) H 02/19/17 03:51 Calcium 7.4 mg/dL (8.6-10.8) L 02/20/17 04:47 - Diagnostic Findings CT scan - chest: report reviewed, image reviewed - Clinical Findings Intake & Output: Intake & Output 02/19/17 02/20/17 02/20/17 23:59 07:59 15:59 Intake Total 520 / 520 Output Total 700 / 700 300 / 300 400 / 400 Balance -700 / -700 -300 / -300 120 / 120 Weight 134.717 kg Consult Discharge Plan - Plan Referrals: Saloni Lombardo, PHYSICIAN OFFICE NURSE [Primary Care Provider] - 02/23/17 2:00 pm
[2017-02-20] MEDS: Benzonatate 100 MG CAPSULE PO PRN (21:13)
[2017-02-21] MEDS: Benzonatate 100 MG CAPSULE PO PRN ×2 (01:41→21:01)
[2017-02-21 04:52] LABS: Basophils # 0.1 K/mcL (0.0-0.2); Eosinophils # 0.2 K/mcL (0.0-0.6); Eosinophils % 2.5 %; Hematocrit 37.7 % (37.5-50.1); Hemoglobin 12.2 g/dL (12.9-16.9); Immature Granulocytes % 0.3 % (0-4); Lymphocytes # 2.4 K/mcL (0.6-4.6); Lymphocytes % 35.2 %; Mean Corpuscular HGB Conc 32.4 g/dL (31.6-35.5); Mean Corpuscular Hemoglobin 27.7 pg (28.0-33.3); Mean Corpuscular Volume 85.7 fL (83.0-100.0); Mean Platelet Volume 10.8 fL (9.4-12.4); Monocytes # 0.6 K/mcL (0.0-1.3); Monocytes % 8.6 %; Neutrophils # 3.5 K/mcL (1.6-8.9); Platelet Count 196 K/mcL (140-400); Red Cell Distribution Width 13.7 % (11.5-14.5); Segmented Neutrophils % 52.4 %
[2017-02-21 05:09] LABS: BUN/Creatinine Ratio 20 (6-26); Blood Urea Nitrogen 22 mg/dL (8-26); Calcium 7.3 mg/dL (8.6-10.8); Carbon Dioxide 27 mEq/L (19-29); Chloride 106 mEq/L (98-109); Glucose 158 mg/dL (70-99); Osmolality,Calculated 299 (280-300); Potassium 3.7 mEq/L (3.5-4.5); Sodium 141 mEq/L (136-145); eGFR For African Americans > 60 (> 60); eGFR For Non-African Americans > 60 (> 60)
[2017-02-21] MEDS: Insulin LISPRO 300 UNITS/3 ML VIAL SQ SCH ×4 (08:13→20:54)
[2017-02-21] MEDS: Aspirin 81 MG TAB.CHEW PO SCH (08:15)
[2017-02-21] MEDS: Isosorbide MONOnitrate (24 HR) 30 MG TAB.ER.24H PO SCH (08:15)
[2017-02-21] MEDS: Gabapentin 300 MG CAPSULE PO SCH ×3 (08:16→20:54)
[2017-02-21] MEDS: Furosemide 40 MG/4 ML VIAL IVP SCH ×2 (08:16→16:05)
[2017-02-21] MEDS: Insulin DETEMIR 100 UNIT/ML X5UNITS SQ SCH (08:22)
--- NOTE | 2017-02-21 11:08 | Cardiology Progress Note ---
Date of Encounter: 02/21/17 Time of Encounter: 10:30 Assessment and Plan (1) Pericardial effusion Current Visit: Yes Status: Acute CT scan showed moderate pericardial effusion which is slightly increased in size compared to previous exam. TTE 04/2016 showed small pericardial effusion with no tamponade and TTE 09/2016 did not mention pericardial effusion. TTE reviewed. EF 30% ( mildly reduced from previous, was 35% 09/2016), Small pericardial effusion with no evidence of tamponade. No indication for further intervention. (2) Acute on chronic combined systolic and diastolic congestive heart failure Current Visit: Yes Status: Acute Acute on chronic systolic and diastolic CHF. EF 41% on MRI 05/2016. 35% on TTE . TTE this admission shows EF mildly reduced at 30%. He denies chest pain and troponin negative. Discussed with Dr. Sethi, continue medical management. CHF Likely exacerbated by increased salt and fluid intake. Discussed low salt diet and fluid restrictions. Found to have mod-large pericardial effusion on CT. Pulmonology following. No thoracentisis at this time due to pt declining. Out pt f/u to discuss plueradex catheter for chronic pleural effusions. Symptos improving. Continue iV diuretic for at least 24 hours more. Strict I&O and daily weights. Cumulative I&O negative 1733. Low sodium diet reviewed. Fluid restriction reviewed. Continue carvedilol. Cozaar increased for hypertension. Increase maintenance lasix to 40 mg BID. Close outpatient follow-up with [facility] will be schedule. Cardiology will sign off. Call with questions. (3) Ischemic cardiomyopathy Current Visit: No Status: Acute (4) Coronary artery disease Current Visit: No Status: Chronic H/o previous cardiac stents. Last [facility] in 2014. Continue asa, statin, and bb. He denies chest pain. Troponin negative x 2. Qualifiers: Coronary Disease-Associated Artery/Lesion type: [place] artery [place] vs. transplanted heart: [place] heart Associated angina: without angina Qualified Code(s): I25.10 - Atherosclerotic heart disease of [place] coronary artery without angina pectoris Discussion w patient/family: The assessment and plan as outlined above was discussed with the patient and/or family members who expressed understanding and agreement. All questions were answered. Thank you for involving us in the care of your patient. Please call with any questions. Subjective Principal diagnosis: CHF Interval history: Mr. feldman reports he is feeling better. Denies chest pain. Objective Vital Signs, Last 4 Hours Temp Pulse Resp BP Pulse Ox 02/21/17 07:24 98.2 F 78 18 139/91 92 General: Conversant, No Apparent Distress HEENT: Atraumatic, Normocephaly, Mucus Membranes Moist Neck: No JVD, Normal carotid pulses Cardiac: Reg Rate and Rhythm, Normal S1 and S2, No Murmur Lungs: Other (Respirations easy. Diminished air movement on the right but improved from yesterday. ) Neuro: Alert and responsive, No focal deficits noted Abdomen: Soft, Non-Tender Skin: No rashes noted on visualized skin Musculoskeletal: No Chest Wall Tenderness Extremities: No Clubbing, No Cyanosis, Normal Pulses, Other (Trace to 1+ BLE edema. Improved. ) Results 02/21/17 03:48 02/21/17 03:48 Lab Results 02/21/17 02/21/17 03:48 03:48 WBC 6.8 Hgb 12.2 L Hct 37.7 Plt Count 196 Sodium 141 Potassium 3.7 Chloride 106 Carbon Dioxide 27 BUN 22 Creatinine 1.08 Glucose 158 H Calcium 7.3 L - Imaging and Cardiology Echo: report reviewed - EKG Interpretation EKG results cardiology: other (24 hour telemetry review shows NSR. Avg Hr 78 bpm. No VT or bradycardia seen.) - VTE Documentation of Mechanical Device: Graduated compression elastic hosiery Consult Discharge Plan - Plan Referrals: Saloni Lombardo, SHADOW GRAPH WEIGHT OPERATOR [Primary Care Provider] - 02/23/17 2:00 pm
--- NOTE | 2017-02-21 15:06 | Internal Med Progress Note ---
Date of Encounter: 02/21/17 Time of Encounter: 12:15 - Assessment and plan (1) Acute respiratory failure Current Visit: No Status: Acute Assessment and plan: Patient is not on oxygen at home, currently on 2 L per nasal cannula continuously here. Secondary to acute systolic heart failure exacerbation and bilateral pleural effusion. Echocardiogram revealed LVEF 30%, diastolic dysfunction and small pericardial effusion. CT chest showed moderate to large right and small left pleural effusion and associated atelectasis. Appreciate cardiology and pulmonology input. Continue IV Lasix, losartan and Coreg. Fluid restriction. Low-salt diet. Patient declined thoracentesis at this time. He will think about it and decide in the outpatient clinic. Qualifiers: Respiratory failure complication: hypoxia Qualified Code(s): J96.01 - Acute respiratory failure with hypoxia (2) Acute systolic CHF (congestive heart failure) Current Visit: No Status: Acute (3) Pleural effusion Current Visit: No Status: Acute Assessment and plan: Likely secondary to acute CHF. Moderate to large right pleural effusion. Patient declined thoracentesis at this time. (4) CAD (coronary artery disease) Current Visit: Yes Status: Chronic Assessment and plan: Continue home meds. Aspirin, statin, beta [place]. Qualifiers: Coronary Disease-Associated Artery/Lesion type: [place] artery [place] vs. transplanted heart: [place] heart Associated angina: with stable angina Qualified Code(s): I25.118 - Atherosclerotic heart disease of [place] coronary artery with other forms of angina pectoris (5) CKD (chronic kidney disease) stage 3, GFR 30-59 ml/min Current Visit: No Status: Chronic Assessment and plan: At baseline. Close monitor. Avoid nephrotoxic agents as possible. (6) Diabetes type 2, uncontrolled Current Visit: No Status: Chronic Assessment and plan: Flex glucose is 159. Continue Levemir, insulin sliding scale and diabetic diet. Qualifiers: Diabetes mellitus complication status: with kidney complications Diabetes mellitus complication detail: with chronic kidney disease Diabetes mellitus residential insulin use: with terminal gauger use Chronic kidney disease stage: stage 3 (moderate) Qualified Code(s): E11.22 - Type 2 diabetes mellitus with diabetic chronic kidney disease; E11.65 - Type 2 diabetes mellitus with hyperglycemia; N18.3 - Chronic kidney disease, stage 3 (moderate); Z79.4 - assistant terminal manager (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 (7) Morbid obesity with BMI of 40.0-44.9, adult Current Visit: Yes Status: Chronic Assessment and plan: BMI 42. Outpatient weight loss program. (8) KENDRA (obstructive sleep apnea) Current Visit: No Status: Chronic Assessment and plan: Patient stating he was compliant with his CPAP machine until he returned from being at inpatient rehabilitation approximate 10-12 weeks ago and he states that when he got home, he never hooked the machine back up. This is likely contributing to a lot of his symptoms including daytime fatigue and weakness. We will order CPAP while admitted. - Subjective Interval history: Patient reports feeling better. Mild shortness of breath and extension and a dry cough. - Constitutional Vitals: Temp Pulse Resp BP Pulse Ox 98.4 F 74 16 163/89 93 02/21/17 11:53 02/21/17 11:53 02/21/17 11:53 02/21/17 11:53 02/21/17 11:53 General appearance: Present: cooperative, A&O X 3, morbidly obese, pleasant, no acute distress, answers questions appropriately - Neck Neck exam general surgery: Present: supple, trachea midline - Respiratory Respiratory exam: Present: decreased breath sounds (at lower lung andrade bilaterally) - Cardiovascular Cardiovascular exam: Present: RRR - GI/Abdominal GI/Abdominal exam: Present: normal bowel sounds, soft. Absent: distended, tenderness - Extremities Exam Extremities exam: Present: pedal edema (2+ LE edema) - Back Exam Back exam: Absent: CVA tenderness (L), CVA tenderness (R) - Neurological Exam Neurological exam: Present: alert, oriented X3, no focal deficits, strengths equal and symetr throughout. Absent: facial droop, speech deficit - Skin Skin exam: Absent: rash Internal Medicine: Result - Labs CBC & Chem 7: 02/21/17 03:48 02/21/17 03:48 Labs: Short CBC 02/21/17 Range/Units 03:48 WBC 6.8 (4.3-11.1) K/mcL Hgb 12.2 L (12.9-16.9) g/dL Hct 37.7 (37.5-50.1) % Plt Count 196 (140-400) K/mcL Neutrophils # 3.5 (1.6-8.9) K/mcL BMP 02/21/17 03:48 Sodium 141 Potassium 3.7 Chloride 106 Carbon Dioxide 27 BUN 22 Creatinine 1.08 Glucose 158 H Calcium 7.3 L - VTE Documentation of Mechanical Device: Graduated compression elastic hosiery Consult Discharge Plan - Plan Referrals: Saloni Lombardo CNP [Primary Care Provider] - 02/23/17 2:00 pm
[2017-02-22] MEDS ORDERED: Albuterol 2.5 MG/3 ML NEBULIZER IH STA (00:29)
[2017-02-22] MEDS ORDERED: Furosemide 40 MG/4 ML VIAL IVP ONE (00:31)
[2017-02-22] MEDS ORDERED: Albuterol 2.5 MG/3 ML NEBULIZER IH PRN (01:21)
[2017-02-22 04:35] LABS: Basophils # 0.1 K/mcL (0.0-0.2); Basophils % 0.6 %; Eosinophils # 0.2 K/mcL (0.0-0.6); Eosinophils % 2.2 %; Hematocrit 37.8 % (37.5-50.1); Hemoglobin 12.3 g/dL (12.9-16.9); Immature Granulocytes % 0.6 % (0-4); Lymphocytes # 2.3 K/mcL (0.6-4.6); Lymphocytes % 28.8 %; Mean Corpuscular HGB Conc 32.5 g/dL (31.6-35.5); Mean Corpuscular Hemoglobin 27.7 pg (28.0-33.3); Mean Corpuscular Volume 85.1 fL (83.0-100.0); Mean Platelet Volume 10.8 fL (9.4-12.4); Monocytes # 0.7 K/mcL (0.0-1.3); Monocytes % 8.2 %; Neutrophils # 4.8 K/mcL (1.6-8.9); Platelet Count 200 K/mcL (140-400); Red Blood Count 4.44 M/mcL (4.19-5.50); Red Cell Distribution Width 13.6 % (11.5-14.5); Segmented Neutrophils % 59.6 %
[2017-02-22 04:46] LABS: Alanine Aminotransferase 23 Units/L (0-55); Albumin 3.4 g/dL (3.5-5.0); Alkaline Phosphatase 69 Units/L (38-126); Aspartate Amino Transferase 22 Units/L (5-34); BUN/Creatinine Ratio 21 (6-26); Bilirubin,Direct 0.5 mg/dL (0.0-0.5); Bilirubin,Indirect 0.7 mg/dL (0.0-1.2); Bilirubin,Total 1.2 mg/dL (0.2-1.2); Blood Urea Nitrogen 22 mg/dL (8-26); Calcium 7.4 mg/dL (8.6-10.8); Carbon Dioxide 24 mEq/L (19-29); Chloride 106 mEq/L (98-109); Globulin 3.3 g/dL (2.4-3.5); Glucose 164 mg/dL (70-99); Magnesium 2.1 mg/dL (1.6-2.6); Osmolality,Calculated 297 (280-300); Potassium 3.6 mEq/L (3.5-4.5); Sodium 140 mEq/L (136-145); Total Protein 6.7 g/dL (6.0-8.3); eGFR For African Americans > 60 (> 60); eGFR For Non-African Americans > 60 (> 60)
[2017-02-22] MEDS: Acetaminophen 325 MG TABLET PO PRN (05:45)
[2017-02-22] MEDS: Isosorbide MONOnitrate (24 HR) 30 MG TAB.ER.24H PO SCH (08:01)
[2017-02-22] MEDS: Gabapentin 300 MG CAPSULE PO SCH ×3 (08:01→21:25)
[2017-02-22] MEDS: Aspirin 81 MG TAB.CHEW PO SCH (08:02)
[2017-02-22] MEDS: Furosemide 40 MG/4 ML VIAL IVP SCH ×2 (08:02→15:52)
[2017-02-22] MEDS: Insulin LISPRO 300 UNITS/3 ML VIAL SQ SCH ×4 (08:02→21:26)
[2017-02-22] MEDS: Insulin DETEMIR 100 UNIT/ML X5UNITS SQ SCH (10:37)
--- NOTE | 2017-02-22 13:10 | Internal Med Progress Note ---
Date of Encounter: 02/22/17 Time of Encounter: 12:00 - Assessment and plan (1) Acute respiratory failure Current Visit: No Status: Acute Assessment and plan: Patient is not on oxygen at home, currently on 2 L per nasal cannula continuously here. Secondary to acute systolic heart failure exacerbation and bilateral pleural effusion. Echocardiogram revealed LVEF 30%, diastolic dysfunction and small pericardial effusion. CT chest showed moderate to large right and small left pleural effusion and associated atelectasis. 02/21 Repeat chest x-ray showed small right pleural effusion. Appreciate cardiology and pulmonology input. Continue IV Lasix, losartan and Coreg. Fluid restriction. Low-salt diet. Initially, patient declined thoracentesis. This morning, he is agreeable to thoracentesis. I will reconsult pulmonology service in the morning. Qualifiers: Respiratory failure complication: hypoxia Qualified Code(s): J96.01 - Acute respiratory failure with hypoxia (2) Acute systolic CHF (congestive heart failure) Current Visit: No Status: Acute (3) Pleural effusion Current Visit: No Status: Acute Assessment and plan: Likely secondary to acute CHF. Moderate to large right pleural effusion. Initially, patient declined any thoracenteses but after overnight events he is agreeable to thoracentesis. will reconsult pulmonology service in the morning. (4) CAD (coronary artery disease) Current Visit: Yes Status: Chronic Assessment and plan: Continue home meds. Aspirin, statin, beta [place]. Qualifiers: Coronary Disease-Associated Artery/Lesion type: [place] artery [place] vs. transplanted heart: [place] heart Associated angina: with stable angina Qualified Code(s): I25.118 - Atherosclerotic heart disease of [place] coronary artery with other forms of angina pectoris (5) CKD (chronic kidney disease) stage 3, GFR 30-59 ml/min Current Visit: No Status: Chronic Assessment and plan: At baseline. Close monitor. Avoid nephrotoxic agents as possible. (6) Diabetes type 2, uncontrolled Current Visit: No Status: Chronic Assessment and plan: Flex glucose is 159. Continue Levemir, insulin sliding scale and diabetic diet. Qualifiers: Diabetes mellitus complication status: with kidney complications Diabetes mellitus complication detail: with chronic kidney disease Diabetes mellitus penitentiary insulin use: with administrative resident use Chronic kidney disease stage: stage 3 (moderate) Qualified Code(s): E11.22 - Type 2 diabetes mellitus with diabetic chronic kidney disease; E11.65 - Type 2 diabetes mellitus with hyperglycemia; N18.3 - Chronic kidney disease, stage 3 (moderate); Z79.4 - detention (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 (7) Morbid obesity with BMI of 40.0-44.9, adult Current Visit: Yes Status: Chronic (8) KENDRA (obstructive sleep apnea) Current Visit: No Status: Chronic - Subjective Interval history: Patient developed worsening of shortness of breath overnight. Vital signs at that time were stable and he was not requiring more oxygen. Stat chest x-ray revealed small right pleural effusion. - Constitutional Vitals: Temp Pulse Resp BP Pulse Ox 97.7 F 76 18 154/89 92 02/22/17 11:14 02/22/17 11:14 02/22/17 11:14 02/22/17 11:14 02/22/17 11:14 General appearance: Present: cooperative, A&O X 3, morbidly obese, pleasant, no acute distress, answers questions appropriately - Eye Eye exam: Present: PERRL, sclera anicteric - Neck Neck exam general surgery: Present: supple, trachea midline. Absent: lymphadenopathy - Respiratory Respiratory exam: Present: decreased breath sounds (At the right lung lower lobe.) - Cardiovascular Cardiovascular exam: Present: RRR - GI/Abdominal GI/Abdominal exam: Present: normal bowel sounds, soft. Absent: distended, tenderness - Extremities Exam Extremities exam: Present: pedal edema (1+ lower extremity edema) - Neurological Exam Neurological exam: Present: alert, oriented X3, no focal deficits, strengths equal and symetr throughout. Absent: facial droop, speech deficit - Skin Skin exam: Absent: rash Internal Medicine: Result - Labs CBC & Chem 7: 02/22/17 03:45 02/22/17 03:45 Labs: Short CBC 02/22/17 Range/Units 03:45 WBC 8.0 (4.3-11.1) K/mcL Hgb 12.3 L (12.9-16.9) g/dL Hct 37.8 (37.5-50.1) % Plt Count 200 (140-400) K/mcL Neutrophils # 4.8 (1.6-8.9) K/mcL BMP 02/22/17 03:45 Sodium 140 Potassium 3.6 Chloride 106 Carbon Dioxide 24 BUN 22 Creatinine 1.07 Glucose 164 H Calcium 7.4 L Liver Function 02/22/17 Range/Units 03:45 Total Bilirubin 1.2 (0.2-1.2) mg/dL Direct Bilirubin 0.5 (0.0-0.5) mg/dL AST 22 (5-34) Units/L ALT 23 (0-55) Units/L Alkaline Phosphatase 69 (38-126) Units/L Albumin 3.4 L (3.5-5.0) g/dL - Impressions Impressions Chest X-Ray 02/22/17 00:31 IMPRESSION: Stable right and improving left pleural effusions. D/ / Juanito Rodriguez MD / Juanito Rodriguez MD Interpreting Provider: Juanito Rodriguez MD Chest X-Ray 02/22/17 08:28 IMPRESSION: Small right pleural effusion with bibasilar atelectasis or pneumonia. Follow-up to resolution recommended. D/ / Moe Castano MD / Moe Castano MD Interpreting Provider: Moe Castano MD - VTE Documentation of Mechanical Device: Graduated compression elastic hosiery Consult Discharge Plan - Plan Referrals: Saloni Lombardo CNP [Primary Care Provider] - 02/23/17 2:00 pm
[2017-02-22] MEDS: Benzonatate 100 MG CAPSULE PO PRN (15:56)
[2017-02-23] MEDS: Insulin LISPRO 300 UNITS/3 ML VIAL SQ SCH ×4 (08:26→22:09)
[2017-02-23] MEDS: Aspirin 81 MG TAB.CHEW PO SCH (10:05)
[2017-02-23] MEDS: Furosemide 40 MG/4 ML VIAL IVP SCH ×2 (10:05→17:18)
[2017-02-23] MEDS: Isosorbide MONOnitrate (24 HR) 30 MG TAB.ER.24H PO SCH (10:06)
[2017-02-23] MEDS: Gabapentin 300 MG CAPSULE PO SCH ×3 (10:06→22:08)
[2017-02-23] MEDS: Insulin DETEMIR 100 UNIT/ML X5UNITS SQ SCH (10:09)
--- NOTE | 2017-02-23 11:28 | Procedure Note ---
Date of procedure: 02/23/17 Pre-op diagnosis: Pleural effusion Post-op diagnosis: same Procedure: Consent was obtained from the patient. The right hemithorax was prepped and draped in routine fashion. Sterile maximal barrier technique was utilized throughout the procedure. Sterile ultrasound guidance was utilized as well. Once the appropriate interspace was identified and marked, using sterile maximal technique, 1.4 L of light xochitl fluid was removed from the right hemithorax without difficulty. No obvious untoward events were noted. Ultrasound evaluation of the chest postthoracentesis revealed residual small pleural effusion, no evidence of pneumothorax. Fluid sent for routine analysis. [facility] [phone]
--- NOTE | 2017-02-23 11:32 | Pulmonology Progress Note ---
Date of Encounter: 02/23/17 Time of Encounter: 09:30 Assessment and Plan (1) Pleural effusion Current Visit: No Status: Acute The patient will undergo thoracentesis of the right hemithorax (larger of the two effusions from review of chest imaging) to help palliate breathlessness. Fluid will also be sent for repeat biochemical analysis to verify transudate of nature. I did speak with the patient regarding well-defined sleep apnea and its negative impact on her avascular performance if untreated. I highly recommended that the patient utilizes a CPAP device nightly and during the daytime with any naps. [facility] [phone] Code(s): J90 - Pleural effusion, not elsewhere classified SNOMED Code(s): 74517662 Subjective Principal diagnosis: Pleural effusions Interval history: This morbidly obese 71-year-old male was evaluated by the pulmonary service on Thursday of last week. The patient has refractory bilateral pleural effusions ( right greater than left) due to combined systolic and diastolic heart failure. Patient has had prior thoracentesis on at least 2 occasions, verified presence of transient date of process. Since the patient continues to note breathlessness, and in spite of appropriate medical therapy for treatment of combined systolic and diastolic heart failure, the patient requested thoracentesis mainly for therapeutic purposes. Objective PUL Vital signs: Last Vital Signs Temp 98.1 F 02/23/17 11:13 Pulse 79 02/23/17 11:13 Resp 17 02/23/17 11:13 BP 127/74 02/23/17 11:13 Pulse Ox 92 02/23/17 11:13 General appearance: no acute distress, other Eyes: nonicteric ENT: oropharynx moist Mallampati (class): 3 Neck: JVD Auscultation: bilateral: diminished breath sounds Percussion: bilateral: dull Cardiovascular: regular rate and rhythm Gastrointestinal: normoactive bowel sounds Extremities: no cyanosis, edema Musculoskeletal: no deformities normal mental status, non-focal exam Results - Laboratory Findings CBC and BMP: 02/22/17 03:45 02/22/17 03:45 Abnormal lab findings: Abnormal lab results Hgb 12.3 g/dL (12.9-16.9) L 02/22/17 03:45 MCH 27.7 pg (28.0-33.3) L 02/22/17 03:45 Glucose 164 mg/dL (70-99) H 02/22/17 03:45 POC Glucose 261 (58-89) H 02/22/17 20:17 Hemoglobin A1c 9.2 % (-5.6) H 02/19/17 03:51 Calcium 7.4 mg/dL (8.6-10.8) L 02/22/17 03:45 Albumin 3.4 g/dL (3.5-5.0) L 02/22/17 03:45 Albumin/Globulin Ratio 1.0 (1.1-2.2) L 02/22/17 03:45 - Clinical Findings Intake & Output: Intake & Output 02/22/17 02/23/17 02/23/17 23:59 07:59 15:59 Intake Total 680 / 680 240 / 240 Output Total 350 / 350 300 / 300 300 / 300 Balance 330 / 330 -300 / -300 -60 / -60 Weight 135.397 kg - VTE Documentation of Mechanical Device: Graduated compression elastic hosiery Consult Discharge Plan - Plan Referrals: Saloni Lombardo, GLUER MACHINE OPERATOR [Primary Care Provider] - 02/23/17 2:00 pm
[2017-02-23 12:20] LABS: RBC,Pleural Fluid < 0.002 M/mcL
[2017-02-23 12:21] LABS: Appearance of Pleural Fl Clear (Clear)
[2017-02-23 12:28] LABS: Glucose,Pleural Fluid 187 mg/dL (No Ref Range); LDH,Pleural Fluid 98 Units/L (No Ref Range)
[2017-02-23 12:29] LABS: Total Protein,Pleural Fluid 2.4 g/dL (No Ref Range)
--- NOTE | 2017-02-23 17:28 | Internal Med Progress Note ---
Date of Encounter: 02/23/17 Time of Encounter: 07:30 - Assessment and plan (1) Acute respiratory failure Current Visit: No Status: Acute Assessment and plan: Patient is not on oxygen at home, currently on 2 L per nasal cannula continuously here. Secondary to acute systolic heart failure exacerbation and bilateral pleural effusion. Echocardiogram revealed LVEF 30%, diastolic dysfunction and small pericardial effusion. CT chest showed moderate to large right and small left pleural effusion and associated atelectasis. 02/21 Repeat chest x-ray showed small right pleural effusion. Appreciate cardiology and pulmonology input. Continue IV Lasix, losartan and Coreg. Fluid restriction. Low-salt diet. Initially, patient declined thoracentesis. This morning, he is agreeable to thoracentesis. I reconsulted pulmonology service for possible thoracentesis. Qualifiers: Respiratory failure complication: hypoxia Qualified Code(s): J96.01 - Acute respiratory failure with hypoxia (2) Acute systolic CHF (congestive heart failure) Current Visit: No Status: Acute (3) Pleural effusion Current Visit: No Status: Acute Assessment and plan: Likely secondary to acute CHF. Moderate to large right pleural effusion. Initially, patient declined any thoracenteses but after overnight events he is agreeable to thoracentesis. will reconsult pulmonology service in the morning. (4) CAD (coronary artery disease) Current Visit: Yes Status: Chronic Assessment and plan: Continue home meds. Aspirin, statin, beta [place]. Qualifiers: Coronary Disease-Associated Artery/Lesion type: [place] artery [place] vs. transplanted heart: [place] heart Associated angina: with stable angina Qualified Code(s): I25.118 - Atherosclerotic heart disease of [place] coronary artery with other forms of angina pectoris (5) CKD (chronic kidney disease) stage 3, GFR 30-59 ml/min Current Visit: No Status: Chronic Assessment and plan: At baseline. Close monitor. Avoid nephrotoxic agents as possible. (6) Diabetes type 2, uncontrolled Current Visit: No Status: Chronic Assessment and plan: Fasting glucose is 142. Continue Levemir, insulin sliding scale and diabetic diet. Qualifiers: Diabetes mellitus complication status: with kidney complications Diabetes mellitus complication detail: with chronic kidney disease Diabetes mellitus intermodal owner operator truck driver insulin use: with intermodal owner operator truck driver use Chronic kidney disease stage: stage 3 (moderate) Qualified Code(s): E11.22 - Type 2 diabetes mellitus with diabetic chronic kidney disease; E11.65 - Type 2 diabetes mellitus with hyperglycemia; N18.3 - Chronic kidney disease, stage 3 (moderate); Z79.4 - superintendent container terminal (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 (7) Morbid obesity with BMI of 40.0-44.9, adult Current Visit: Yes Status: Chronic Assessment and plan: BMI 42. Outpatient weight loss program. (8) KENDRA (obstructive sleep apnea) Current Visit: No Status: Chronic Assessment and plan: Patient stating he was compliant with his CPAP machine until he returned from being at inpatient rehabilitation approximate 10-12 weeks ago and he states that when he got home, he never hooked the machine back up. This is likely contributing to a lot of his symptoms including daytime fatigue and weakness. We will order CPAP while admitted. - Subjective Interval history: Patient is agreeable for thoracentesis. He reports shortness of breath on exertion. No chest pain. - Constitutional Vitals: Temp Pulse Resp BP Pulse Ox 97.8 F 73 15 139/82 94 02/23/17 15:32 02/23/17 15:32 02/23/17 15:32 02/23/17 15:32 02/23/17 15:32 General appearance: Present: cooperative, A&O X 3, morbidly obese, pleasant, no acute distress, answers questions appropriately - Neck Neck exam general surgery: Present: supple, trachea midline. Absent: lymphadenopathy - Respiratory Respiratory exam: Present: decreased breath sounds (Right lower lobe.) - Cardiovascular Cardiovascular exam: Present: RRR - GI/Abdominal GI/Abdominal exam: Present: normal bowel sounds, soft. Absent: distended, tenderness - Extremities Exam Extremities exam: Present: pedal edema (1+ lower extremity edema.) - Back Exam Back exam: Absent: CVA tenderness (L), CVA tenderness (R) - Neurological Exam Neurological exam: Present: alert, oriented X3, strengths equal and symetr throughout - Skin Skin exam: Absent: rash Internal Medicine: Result - Labs CBC & Chem 7: 02/22/17 03:45 02/22/17 03:45 - VTE Documentation of Mechanical Device: Graduated compression elastic hosiery Consult Discharge Plan - Plan Referrals: Saloni Lombardo, PSYCHIATRY ADULT PHYSICIAN [Primary Care Provider] - 02/23/17 2:00 pm
[2017-02-23] MEDS ORDERED: hydrALAZINE 25 MG TABLET PO SCH (18:00)
[2017-02-23] MEDS: Benzonatate 100 MG CAPSULE PO PRN (22:08)
[2017-02-24 03:54] LABS: Basophils # 0.1 K/mcL (0.0-0.2); Basophils % 0.8 %; Eosinophils # 0.2 K/mcL (0.0-0.6); Eosinophils % 3.4 %; Hematocrit 38.2 % (37.5-50.1); Hemoglobin 12.3 g/dL (12.9-16.9); Immature Granulocytes % 0.3 % (0-4); Lymphocytes # 2.2 K/mcL (0.6-4.6); Lymphocytes % 35.1 %; Mean Corpuscular HGB Conc 32.2 g/dL (31.6-35.5); Mean Corpuscular Hemoglobin 27.9 pg (28.0-33.3); Mean Corpuscular Volume 86.6 fL (83.0-100.0); Mean Platelet Volume 10.7 fL (9.4-12.4); Monocytes # 0.6 K/mcL (0.0-1.3); Neutrophils # 3.2 K/mcL (1.6-8.9); Platelet Count 200 K/mcL (140-400); Red Blood Count 4.41 M/mcL (4.19-5.50); Red Cell Distribution Width 13.7 % (11.5-14.5); Segmented Neutrophils % 51.4 %
[2017-02-24 04:16] LABS: BUN/Creatinine Ratio 23 (6-26); Blood Urea Nitrogen 24 mg/dL (8-26); Calcium 7.3 mg/dL (8.6-10.8); Carbon Dioxide 27 mEq/L (19-29); Chloride 109 mEq/L (98-109); Glucose 174 mg/dL (70-99); Lactate Dehydrogenase 228 Units/L (159-327); Magnesium 2.1 mg/dL (1.6-2.6); Osmolality,Calculated 298 (280-300); Potassium 4.2 mEq/L (3.5-4.5); Sodium 140 mEq/L (136-145); eGFR For African Americans > 60 (> 60); eGFR For Non-African Americans > 60 (> 60)
[2017-02-24] MEDS: Gabapentin 300 MG CAPSULE PO SCH ×3 (09:00→21:32)
[2017-02-24] MEDS: Aspirin 81 MG TAB.CHEW PO SCH (09:00)
[2017-02-24] MEDS: Insulin DETEMIR 100 UNIT/ML X5UNITS SQ SCH (09:00)
[2017-02-24] MEDS: Furosemide 40 MG/4 ML VIAL IVP SCH ×2 (09:00→17:00)
[2017-02-24] MEDS: Isosorbide MONOnitrate (24 HR) 60 MG TAB.ER.24H PO SCH (09:00)
[2017-02-24] MEDS: Insulin LISPRO 300 UNITS/3 ML VIAL SQ SCH ×4 (09:01→21:32)
[2017-02-24] MEDS: Acetaminophen 325 MG TABLET PO PRN (17:04)
--- NOTE | 2017-02-24 17:08 | Internal Med Progress Note ---
Date of Encounter: 02/24/17 Time of Encounter: 09:45 - Assessment and plan (1) Acute respiratory failure Current Visit: No Status: Acute Assessment and plan: Patient is not on oxygen at home, currently on 2 L per nasal cannula continuously here. Secondary to acute systolic heart failure exacerbation and bilateral pleural effusion. Echocardiogram revealed LVEF 30%, diastolic dysfunction and small pericardial effusion. CT chest showed moderate to large right and small left pleural effusion and associated atelectasis. 02/23: Patient underwent right-sided thoracentesis with removal of 1.4 L of light xochitl fluid. Appreciate cardiology and pulmonology input. Continue IV Lasix, losartan and Coreg. Fluid restriction. Low-salt diet. Qualifiers: Respiratory failure complication: hypoxia Qualified Code(s): J96.01 - Acute respiratory failure with hypoxia (2) Acute systolic CHF (congestive heart failure) Current Visit: No Status: Acute Assessment and plan: Plan as above. (3) Pleural effusion Current Visit: No Status: Acute Assessment and plan: Likely secondary to acute CHF. Moderate to large right pleural effusion. Status post thoracentesis. (4) CAD (coronary artery disease) Current Visit: Yes Status: Chronic Assessment and plan: Continue home meds. Aspirin, statin, beta [place]. Qualifiers: Coronary Disease-Associated Artery/Lesion type: grindstone artery [place] vs. transplanted heart: grindstone heart Associated angina: with stable angina Qualified Code(s): I25.118 - Atherosclerotic heart disease of grindstone coronary artery with other forms of angina pectoris (5) CKD (chronic kidney disease) stage 3, GFR 30-59 ml/min Current Visit: No Status: Chronic Assessment and plan: At baseline. Close monitor. Avoid nephrotoxic agents as possible. (6) Diabetes type 2, uncontrolled Current Visit: No Status: Chronic Assessment and plan: Fasting glucose is 159. Continue Levemir, insulin sliding scale and diabetic diet. Qualifiers: Diabetes mellitus complication status: with kidney complications Diabetes mellitus complication detail: with chronic kidney disease Diabetes mellitus detention insulin use: with detention use Chronic kidney disease stage: stage 3 (moderate) Qualified Code(s): E11.22 - Type 2 diabetes mellitus with diabetic chronic kidney disease; E11.65 - Type 2 diabetes mellitus with hyperglycemia; N18.3 - Chronic kidney disease, stage 3 (moderate); Z79.4 - senior living (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 (7) Morbid obesity with BMI of 40.0-44.9, adult Current Visit: Yes Status: Chronic Assessment and plan: BMI 42. Outpatient weight loss program. (8) KENDRA (obstructive sleep apnea) Current Visit: No Status: Chronic Assessment and plan: Patient stating he was compliant with his CPAP machine until he returned from being at inpatient rehabilitation approximate 10-12 weeks ago and he states that when he got home, he never hooked the machine back up. This is likely contributing to a lot of his symptoms including daytime fatigue and weakness. We will order CPAP while admitted. (9) Generalized weakness Current Visit: Yes Status: Acute Assessment and plan: PT OT recommended inpatient rehabilitation. Patient is thinking about it. - Subjective Interval history: Patient reports shortness of breath on exertion. He is thinking about rehabilitation placement. - Constitutional Vitals: Temp Pulse Resp BP Pulse Ox 98.3 F 77 16 133/77 96 02/24/17 15:43 02/24/17 15:43 02/24/17 15:43 02/24/17 15:43 02/24/17 15:43 General appearance: Present: cooperative, A&O X 3, morbidly obese, pleasant, no acute distress, answers questions appropriately - Neck Neck exam general surgery: Present: supple, trachea midline. Absent: lymphadenopathy - Respiratory Respiratory exam: Present: rales (At lower lung bases) - Cardiovascular Cardiovascular exam: Present: RRR - GI/Abdominal GI/Abdominal exam: Present: normal bowel sounds, soft. Absent: distended, tenderness - Extremities Exam Extremities exam: Present: pedal edema (1+ lower extremity edema.) - Back Exam Back exam: Absent: CVA tenderness (L), CVA tenderness (R) - Neurological Exam Neurological exam: Present: alert, oriented X3, no focal deficits, strengths equal and symetr throughout. Absent: facial droop, speech deficit - Skin Skin exam: Absent: rash Internal Medicine: Result - Labs CBC & Chem 7: 02/24/17 03:26 02/24/17 03:26 Labs: Short CBC 02/24/17 Range/Units 03:26 WBC 6.2 (4.3-11.1) K/mcL Hgb 12.3 L (12.9-16.9) g/dL Hct 38.2 (37.5-50.1) % Plt Count 200 (140-400) K/mcL Neutrophils # 3.2 (1.6-8.9) K/mcL BMP 02/24/17 03:26 Sodium 140 Potassium 4.2 Chloride 109 Carbon Dioxide 27 BUN 24 Creatinine 1.06 Glucose 174 H Calcium 7.3 L - VTE Documentation of Mechanical Device: Graduated compression elastic hosiery Consult Discharge Plan - Plan Referrals: Saloni Lombardo, GENE [Primary Care Provider] - 02/23/17 2:00 pm
[2017-02-25 05:17] LABS: Basophils # 0.1 K/mcL (0.0-0.2); Eosinophils # 0.3 K/mcL (0.0-0.6); Eosinophils % 3.6 %; Hematocrit 37.1 % (37.5-50.1); Immature Granulocytes % 0.6 % (0-4); Lymphocytes # 2.4 K/mcL (0.6-4.6); Lymphocytes % 35.4 %; Mean Corpuscular HGB Conc 32.3 g/dL (31.6-35.5); Mean Corpuscular Hemoglobin 27.7 pg (28.0-33.3); Mean Corpuscular Volume 85.7 fL (83.0-100.0); Mean Platelet Volume 10.9 fL (9.4-12.4); Monocytes # 0.6 K/mcL (0.0-1.3); Monocytes % 9.2 %; Neutrophils # 3.4 K/mcL (1.6-8.9); Platelet Count 191 K/mcL (140-400); Red Blood Count 4.33 M/mcL (4.19-5.50); Red Cell Distribution Width 13.6 % (11.5-14.5); Segmented Neutrophils % 50.2 %
[2017-02-25 05:31] LABS: BUN/Creatinine Ratio 26 (6-26); Blood Urea Nitrogen 25 mg/dL (8-26); Calcium 7.3 mg/dL (8.6-10.8); Carbon Dioxide 22 mEq/L (19-29); Chloride 110 mEq/L (98-109); Glucose 137 mg/dL (70-99); Magnesium 2.1 mg/dL (1.6-2.6); Osmolality,Calculated 297 (280-300); Phosphorous 4.7 mg/dL (2.3-4.7); Potassium 4.4 mEq/L (3.5-4.5); Sodium 140 mEq/L (136-145); eGFR For African Americans > 60 (> 60); eGFR For Non-African Americans > 60 (> 60)
[2017-02-25] MEDS: Insulin LISPRO 300 UNITS/3 ML VIAL SQ SCH ×2 (09:27→12:57)
[2017-02-25] MEDS: Gabapentin 300 MG CAPSULE PO SCH ×2 (09:28→15:30)
[2017-02-25] MEDS: Isosorbide MONOnitrate (24 HR) 60 MG TAB.ER.24H PO SCH (09:30)
[2017-02-25] MEDS: Aspirin 81 MG TAB.CHEW PO SCH (09:30)
[2017-02-25] MEDS: Furosemide 40 MG/4 ML VIAL IVP SCH (09:31)
[2017-02-25] MEDS: Insulin DETEMIR 100 UNIT/ML X5UNITS SQ SCH (09:45)
[2017-02-25 11:46] VITALS: BP 130/79
--- NOTE | 2017-02-25 15:48 | Discharge Summary ---
Date of Encounter: 02/25/17 Time of Encounter: 15:00 - Discharge Diagnosis (1) Acute respiratory failure Priority: Primary Status: Acute Qualifiers: Respiratory failure complication: hypoxia Qualified Code(s): J96.01 - Acute respiratory failure with hypoxia (2) Acute systolic CHF (congestive heart failure) Priority: Primary Status: Acute (3) Pleural effusion Priority: Primary Status: Acute (4) CAD (coronary artery disease) Priority: Secondary Status: Chronic Qualifiers: Coronary Disease-Associated Artery/Lesion type: marshall artery [place] vs. transplanted heart: marshall heart Associated angina: with stable angina Qualified Code(s): I25.118 - Atherosclerotic heart disease of marshall coronary artery with other forms of angina pectoris (5) CKD (chronic kidney disease) stage 3, GFR 30-59 ml/min Priority: Secondary Status: Chronic (6) Diabetes type 2, uncontrolled Priority: Secondary Status: Chronic Qualifiers: Diabetes mellitus complication status: with kidney complications Diabetes mellitus complication detail: with chronic kidney disease Diabetes mellitus buttermaker helper insulin use: with buttermaker helper use Chronic kidney disease stage: stage 3 (moderate) Qualified Code(s): E11.22 - Type 2 diabetes mellitus with diabetic chronic kidney disease; E11.65 - Type 2 diabetes mellitus with hyperglycemia; N18.3 - Chronic kidney disease, stage 3 (moderate); 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 (7) Morbid obesity with BMI of 40.0-44.9, adult Priority: Secondary Status: Chronic (8) KENDRA (obstructive sleep apnea) Priority: Secondary Status: Chronic (9) Generalized weakness Priority: Primary Status: Acute - Discharge Medications Prescriptions: Carvedilol [Coreg] 6.25 mg PO BIDWM #60 tab Furosemide [Lasix] 40 mg PO BID #60 Isosorbide MONOnitrate (24 HR) [Imdur] 60 mg PO DAILY #30 Losartan [Cozaar] 50 mg PO DAILY #30 tab Potassium Chloride [Klor-Con 10] 20 meq PO BIDWM #120 Home Medications: Gabapentin [Neurontin] 600 mg PO TID 03/23/15 [History] Levothyroxine [Synthroid] 200 mcg PO DAILY 03/23/15 [History] Aspirin 81 mg PO DAILY tab.chew 04/03/15 [Rx] Atorvastatin [Lipitor] 40 mg PO HS #30 tablet 04/03/15 [Rx] metFORMIN [Glucophage] 1,000 mg PO BID 07/07/16 [History] Apixaban [Eliquis] 2.5 mg PO BID #30 tablet 07/14/16 [Rx] Montelukast [Singulair] 10 mg PO HS #30 tablet 07/14/16 [Rx] Benzonatate [Tessalon] 100 mg PO TID PRN 02/18/17 [History] DiphenhydraMINE [Benadryl] 25 mg PO HS PRN 02/18/17 [History] Insulin DETEMIR [Levemir] 60 unit SQ DAILY 02/18/17 [History] Calcium Carbonate/Vitamin D3 [Calcium 600 + Vit D Tablet] 1 tab PO DAILY [History] Docusate [Colace] 100 mg PO DAILY PRN 02/19/17 [History] Fluticasone Propionate Nasal [Flonase] 1 spray NS BID PRN 02/19/17 [History] Insulin LISPRO [HumaLOG] 0 units SQ TIDWM MDD PER SLIDING SCALE 02/19/17 [ History] Carvedilol [Coreg] 6.25 mg PO BIDWM #60 tab 02/25/17 [Rx] Furosemide [Lasix] 40 mg PO BID #60 02/25/17 [Rx] Isosorbide MONOnitrate (24 HR) [Imdur] 60 mg PO DAILY #30 02/25/17 [Rx] Losartan [Cozaar] 50 mg PO DAILY #30 tab 02/25/17 [Rx] Potassium Chloride [Klor-Con 10] 20 meq PO BIDWM #120 02/25/17 [Rx] Allergies/Adverse Reactions: Allergies Penicillins Allergy (Verified 03/23/15 09:54) Hives ERNST Inhibitors Adverse Reaction (Verified 03/23/15 09:53) Cough Date of admission: 02/18/17 21:32 Primary care physician: Saloni Lombardo CNP Consults: 02/19/17 18:54 Consult to Occupational Therapy [CONS] Routine Comment: Evaluate, develop and implement POC Reason for Consult: may need rehab Consult to Physical Therapy [CONS] Routine Comment: Evaluate, develop and implement POC Reason for Consult: may need rehab 02/20/17 08:07 Consult to Cardiology [CONS] Routine Comment: Consulting Provider: Cardiology [facility] Reason for Consult: increased size of pericardial effusion. Here for RIOS. Echo from September: EF 35%. pleural effusions also increased- pulm onboard too. diuresing. Time Notified: 08:10 Call Completed: Yes Consult to Pulmonology [CONS] Routine Consulting Provider: [facility] Reason for Consult: mod to large pleural effusion. has needed thoracenteses in the past. here for RIOS Time Notified: 08:08 Call Completed: Yes 02/20/17 08:13 Consult to Glass Calibrator [CONS] Routine Reason for SW Consult: OT PT pending; will likely need placed - Patient Status Disposition: Home Health Service Condition: Good Functional capacity at discharge: uses cane/walker Overall status at discharge: patient is progressing back to baseline - Discharge Instructions Instructions: Heart Failure (GEN), Coronary Artery Disease (GEN), Chronic Obstructive Pulmonary Disease (DC) Follow Up With: Arsalan Anna CNP [Advanced Practice Nurse] - 03/11/17 3:30 pm Saloni Lombardo CNP [Primary Care Provider] - 02/23/17 2:00 pm - Diet and Activity Activity: resume usual activities as tolerated Diet: low fat, low cholesterol, low salt diet, other (fluid restriction 1.6 liters per day) Interval History: The patient reports his shortness of breath is better. No chest pain. Hospital course: Mr. Stout is a 71 year old male with past medical history of systolic heart failure LVEF 30%, CAD, diabetes, hypertension, tobacco use, and CLL in remission who presented with a chief complaint of progressive shortness of breath and chest tightness. He was admitted with acute respiratory failure secondary to acute systolic heart failure exacerbation and bilateral pleural effusions. Echocardiogram revealed LVEF 30%, diastolic dysfunction and small pericardial effusion. CT chest showed moderate to large right small left pleural effusion with associated atelectasis and . 02/23: Patient underwent right -sided thoracentesis with removal of 1.4 L of light xochitl fluid. He improved clinically and was ambulating with walker at discharge. PLAN: Patient instructed to use oxygen all the time and be compliant with fluid restriction and low-salt intake. check BMP in 1 week. Patient counseled to quit smoking. Follow-up in the oncology clinic for repeat CT of the chest in 6 months given adenopathy, 1 cm pretracheal lymph node. - Time Spent with Patient Total time spent providing and/or coordinating discharge services: - Constitutional Vitals: Temp Pulse Resp BP Pulse Ox 98.6 F 77 16 130/79 97 02/25/17 11:41 02/25/17 11:41 02/25/17 11:41 02/25/17 11:41 02/25/17 14:35 General appearance: Present: cooperative, A&O X 3, morbidly obese, pleasant, no acute distress, answers questions appropriately - Eye Eye exam: Present: PERRL, sclera anicteric - Neck Neck exam general surgery: Present: supple, trachea midline. Absent: lymphadenopathy - Respiratory Respiratory exam: Present: decreased breath sounds (at lower lung bases) - Cardiovascular Cardiovascular exam: Present: RRR - GI/Abdominal GI/Abdominal exam: Present: normal bowel sounds, soft. Absent: distended, tenderness - Extremities Exam Extremities exam: Present: pedal edema (1+ le edema) - Back Exam Back exam: Absent: CVA tenderness (L), CVA tenderness (R) - Neurological Exam Neurological exam: Present: alert, oriented X3, no focal deficits, strengths equal and symetr throughout. Absent: facial droop, speech deficit - Skin Skin exam: Absent: rash - VTE Documentation of Mechanical Device: Graduated compression elastic hosiery
--- NOTE | 2017-02-25 16:05 | Physician Discharge Referral ---
Home Health/Hosp Referral Info Transfer to: Home Health Attending Provider: krissy Provider in Charge Post Discharge: PCP - Diagnosis (1) Acute respiratory failure Status: Acute (2) Acute systolic CHF (congestive heart failure) Status: Acute (3) Pleural effusion Status: Acute (4) CAD (coronary artery disease) Status: Chronic (5) CKD (chronic kidney disease) stage 3, GFR 30-59 ml/min Status: Chronic (6) Diabetes type 2, uncontrolled Status: Chronic (7) Morbid obesity with BMI of 40.0-44.9, adult Status: Chronic (8) KENDRA (obstructive sleep apnea) Status: Chronic (9) Generalized weakness Status: Acute - Respiratory Orders Oxygen / L per min (3) Smoking Cessation: Smoking cessation has been advised. For more information, call the [employer] Quit Line at [phone]-NOW. - Diet/Nutrition Diet/Nutrition Orders: No Added Salt (LATISHA) (fluid restriction 1.6 liters per day ), Cardiac - Activity Activity Orders: Walker - Services Needed Following services are medically necessary services: Physical Therapy, Occupational Therapy - Transfer Medications Prescriptions: Carvedilol [Coreg] 6.25 mg PO BIDWM #60 tab Furosemide [Lasix] 40 mg PO BID #60 Isosorbide MONOnitrate (24 HR) [Imdur] 60 mg PO DAILY #30 Losartan [Cozaar] 50 mg PO DAILY #30 tab Potassium Chloride [Klor-Con 10] 20 meq PO BIDWM #120 Home Medications: Gabapentin [Neurontin] 600 mg PO TID 03/23/15 [History] Levothyroxine [Synthroid] 200 mcg PO DAILY 03/23/15 [History] Aspirin 81 mg PO DAILY tab.chew 04/03/15 [Rx] Atorvastatin [Lipitor] 40 mg PO HS #30 tablet 04/03/15 [Rx] metFORMIN [Glucophage] 1,000 mg PO BID 07/07/16 [History] Apixaban [Eliquis] 2.5 mg PO BID #30 tablet 07/14/16 [Rx] Montelukast [Singulair] 10 mg PO HS #30 tablet 07/14/16 [Rx] Benzonatate [Tessalon] 100 mg PO TID PRN 02/18/17 [History] DiphenhydraMINE [Benadryl] 25 mg PO HS PRN 02/18/17 [History] Insulin DETEMIR [Levemir] 60 unit SQ DAILY 02/18/17 [History] Calcium Carbonate/Vitamin D3 [Calcium 600 + Vit D Tablet] 1 tab PO DAILY [History] Docusate [Colace] 100 mg PO DAILY PRN 02/19/17 [History] Fluticasone Propionate Nasal [Flonase] 1 spray NS BID PRN 02/19/17 [History] Insulin LISPRO [HumaLOG] 0 units SQ TIDWM MDD PER SLIDING SCALE 02/19/17 [ History] Carvedilol [Coreg] 6.25 mg PO BIDWM #60 tab 02/25/17 [Rx] Furosemide [Lasix] 40 mg PO BID #60 02/25/17 [Rx] Isosorbide MONOnitrate (24 HR) [Imdur] 60 mg PO DAILY #30 02/25/17 [Rx] Losartan [Cozaar] 50 mg PO DAILY #30 tab 02/25/17 [Rx] Potassium Chloride [Klor-Con 10] 20 meq PO BIDWM #120 02/25/17 [Rx] Allergies/Adverse Reactions: Allergies Penicillins Allergy (Verified 03/23/15 09:54) Hives ERNST Inhibitors Adverse Reaction (Verified 03/23/15 09:53) Cough Certification: Further, I certify that my clinical findings support that this patient is homebound (i.e. absences from home require considerable and taxing effort and are for medical reasons or evangelical services or infrequently or short duration when for other reasons) because: Homebound Reason: Patient requires assistance of a person or device to safely leave home, Severity of cardiac or pulmonary status limits activity tolerance Attestation: My signature below is to certify that this patient is under my care and that I, or nurse practitioner, or a physician's greenhouse assistant working with me, has a face-to -face encounter with this patient.
== END 2017-02-25 17:59 | disposition home health service (06) | DRG 291 ==
LOC: 3BNU → SUATTDRO 21:32
PROVIDERS: ADMIT Internal Medicine; ATTEND Internal Medicine

== ENCOUNTER 2017-05-07 16:56 | Inpatient (IN) ==
[2017-05-07] MEDS ORDERED: Nitroglycerin 0.4 MG TAB.SUBL SL PRN (17:07)
--- NOTE | 2017-05-07 17:12 | Emergency Department Note ---
Disposition Clinical Impression: Acute exacerbation of chronic obstructive airways disease, Shortness of breath Disposition: Admitted As Inpatient Condition: Fair General Adult HPI - General Chief complaint: ED Shortness of Breath/Dyspnea Stated complaint: JAYLA Time Seen by Provider: 05/07/17 17:00 Source: EMS - History of Present Illness Pain Scale: 0 - Related Data Home Medications Medication Instructions Recorded Confirmed metFORMIN [Glucophage] 1,000 mg PO BID 07/07/16 05/07/17 DiphenhydraMINE [Benadryl] 25 mg PO HS PRN 02/18/17 05/07/17 Insulin DETEMIR [Levemir] 60 unit SQ QAM 02/18/17 05/07/17 Docusate [Colace] 100 mg PO DAILY PRN 02/19/17 05/07/17 Insulin LISPRO [HumaLOG] 0 units SQ TIDWM 02/19/17 05/07/17 Gabapentin [Neurontin] 1,200 mg PO TID 05/07/17 05/07/17 Levothyroxine Sodium [Synthroid] 200 mcg PO QAM 05/07/17 05/07/17 Losartan [Cozaar] 25 mg PO DAILY 05/07/17 05/07/17 Previous Rx's Medication Instructions Recorded Atorvastatin [Lipitor] 40 mg PO HS #30 tablet 04/03/15 Apixaban [Eliquis] 2.5 mg PO BID #30 tablet 07/14/16 Montelukast [Singulair] 10 mg PO HS #30 tablet 07/14/16 Carvedilol [Coreg] 6.25 mg PO BIDWM #60 tab 02/25/17 Furosemide [Lasix] 40 mg PO BID #60 02/25/17 Isosorbide MONOnitrate (24 HR) 60 mg PO DAILY #30 02/25/17 [Imdur] Allergies Allergy/AdvReac Type Severity Reaction Status Date / Time Penicillins Allergy Hives Verified 03/23/15 09:54 ERNST Inhibitors AdvReac Cough Verified 03/23/15 09:53 Past Medical History - Past Medical History Medical history: Reports: arthritis, cancer, cardiomyopathy, CHF, coronary artery disease, diabetes, GERD, hypertension, thyroid disease Surgical history: Reports: angioplasty/stent, cancer surgery, herniorrhaphy, orthopedic, other, thyroidectomy, other Psychiatric history: Reports: no psych history - Social History Smoking Status: Never smoker Smokeless Tobacco Status: No Alcohol use: Reports: none Drug use: Reports: none Physical Exam - General General appearance: alert, anxious Course Vital Signs Temperature 98.0 F 05/07/17 16:57 Pulse Rate 86 05/07/17 16:57 Respiratory Rate 22 05/07/17 16:57 Blood Pressure 160/107 05/07/17 16:57 O2 Sat by Pulse Oximetry 94 05/07/17 16:57 Temperature 98.1 F 05/07/17 19:26 Pulse Rate 81 05/07/17 19:26 Respiratory Rate 20 05/07/17 19:26 Blood Pressure 146/75 05/07/17 19:26 O2 Sat by Pulse Oximetry 100 05/07/17 19:26 Oxygen Delivery Oxygen Delivery Bipap Medical Decision Making - Lab Data Result diagrams: 05/07/17 17:36 05/07/17 17:36 Lab Results 05/07/17 05/07/17 05/07/17 Range/Units 17:36 17:36 17:36 WBC 7.5 (4.3-11.1) K/mcL RBC 4.62 (4.19-5.50) M/mcL Hgb 12.1 L (12.9-16.9) g/dL Hct 38.5 (37.5-50.1) % MCV 83.3 (83.0-100.0) fL MCH 26.2 L (28.0-33.3) pg MCHC 31.4 L (31.6-35.5) g/dL RDW 14.6 H (11.5-14.5) % Plt Count 230 (140-400) K/mcL MPV 10.5 (9.4-12.4) fL Immature Gran % 0.4 (0-4) % Seg Neutrophils % 60.1 % Lymphocytes % 28.8 % Monocytes % 8.4 % Eosinophils % 1.5 % Basophils % 0.8 % Neutrophils # 4.5 (1.6-8.9) K/mcL Lymphocytes # 2.2 (0.6-4.6) K/mcL Monocytes # 0.6 (0.0-1.3) K/mcL Eosinophils # 0.1 (0.0-0.6) K/mcL Basophils # 0.1 (0.0-0.2) K/mcL PT 14.7 H (9.4-12.1) Seconds INR 1.4 APTT 35.5 (26.0-36.0) Seconds Sodium 138 (136-145) mEq/L Potassium 4.3 (3.5-4.5) mEq/L Chloride 105 (98-109) mEq/L Carbon Dioxide 24 (19-29) mEq/L BUN 19 (8-26) mg/dL Creatinine 1.24 (0.72-1.25) mg/dL Est GFR ( Amer) > 60 (> 60) Est GFR (Non-Af Amer) 58 L (> 60) BUN/Creatinine Ratio 15 (6-26) Glucose 161 H (70-99) mg/dL Calculated Osmolality 292 (280-300) Calcium 8.2 L (8.6-10.8) mg/dL Troponin I (0-0.03) ng/mL B-Natriuretic Peptide (0-100) pg/mL 05/07/17 05/07/17 Range/Units 17:36 17:36 WBC (4.3-11.1) K/mcL RBC (4.19-5.50) M/mcL Hgb (12.9-16.9) g/dL Hct (37.5-50.1) % MCV (83.0-100.0) fL MCH (28.0-33.3) pg MCHC (31.6-35.5) g/dL RDW (11.5-14.5) % Plt Count (140-400) K/mcL MPV (9.4-12.4) fL Immature Gran % (0-4) % Seg Neutrophils % % Lymphocytes % % Monocytes % % Eosinophils % % Basophils % % Neutrophils # (1.6-8.9) K/mcL Lymphocytes # (0.6-4.6) K/mcL Monocytes # (0.0-1.3) K/mcL Eosinophils # (0.0-0.6) K/mcL Basophils # (0.0-0.2) K/mcL PT (9.4-12.1) Seconds INR APTT (26.0-36.0) Seconds Sodium (136-145) mEq/L Potassium (3.5-4.5) mEq/L Chloride (98-109) mEq/L Carbon Dioxide (19-29) mEq/L BUN (8-26) mg/dL Creatinine (0.72-1.25) mg/dL Est GFR ( Amer) (> 60) Est GFR (Non-Af Amer) (> 60) BUN/Creatinine Ratio (6-26) Glucose (70-99) mg/dL Calculated Osmolality (280-300) Calcium (8.6-10.8) mg/dL Troponin I 0.02 (0-0.03) ng/mL B-Natriuretic Peptide 1005 H (0-100) pg/mL Critical Care Time Critical Care Time: Yes Total Critical Care Time: 30 Attestation: dyspnea requiring BiPAP Attestation Statement - Attestation Attestation: I examined this patient and my medical decision-making was reviewed with the Resident Physician. I agree with the documented findings, disposition and treatment plan as described except to the extent set forth below. Face to face time provided in conjunction with the resident physician Dr. Taylor patient arrives dyspneic. He is sitting in the tripod position. Lungs sound wet externally. History of congestive heart failure.
[2017-05-07] MEDS ORDERED: Furosemide 40 MG/4 ML VIAL IVP ONE (17:14)
[2017-05-07] MEDS ORDERED: Nitroprusside 50 MG in D5% in Water 250 ML IVC SCH (17:15)
--- NOTE | 2017-05-07 17:19 | Emergency Department Note ---
Disposition Clinical Impression: Acute exacerbation of chronic obstructive airways disease, Shortness of breath Disposition: Admitted As Inpatient Condition: Fair Referrals: Saloni Lombardo CNP [Primary Care Provider] - Time of Disposition: 19:11 SOB HPI - General Chief Complaint: ED Shortness of Breath/Dyspnea Stated Complaint: JAYLA Time Seen by Provider: 05/07/17 17:00 Source: EMS Nursing Notes Reviewed: Yes Vital Signs Reviewed: Yes - History of Present Illness Patient is a 71-year-old male brought in by EMS who complains of severe shortness of breath worsened over the past several days. Patient states he follows with Dr. Zamarripa for his congestive heart failure. 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 Patient states he is on a strict sodium diet but states he eats out all the time and is unsure of consult contents of the food he eats. - Related Data Home Medications Medication Instructions Recorded Confirmed Gabapentin [Neurontin] 600 mg PO TID 03/23/15 02/19/17 Levothyroxine [Synthroid] 200 mcg PO DAILY 03/23/15 02/19/17 metFORMIN [Glucophage] 1,000 mg PO BID 07/07/16 02/19/17 Benzonatate [Tessalon] 100 mg PO TID PRN 02/18/17 02/19/17 DiphenhydraMINE [Benadryl] 25 mg PO HS PRN 02/18/17 02/19/17 Insulin DETEMIR [Levemir] 60 unit SQ DAILY 02/18/17 02/19/17 Calcium Carbonate/Vitamin D3 1 tab PO DAILY 02/19/17 02/19/17 [Calcium 600 + Vit D Tablet] Docusate [Colace] 100 mg PO DAILY PRN 02/19/17 02/19/17 Fluticasone Propionate Nasal 1 spray NS BID PRN 02/19/17 02/19/17 [Flonase] Insulin LISPRO [HumaLOG] 0 units SQ TIDWM MDD PER SLIDING 02/19/17 02/19/17 SCALE Previous Rx's Medication Instructions Recorded Aspirin 81 mg PO DAILY tab.chew 04/03/15 Atorvastatin [Lipitor] 40 mg PO HS #30 tablet 04/03/15 Apixaban [Eliquis] 2.5 mg PO BID #30 tablet 07/14/16 Montelukast [Singulair] 10 mg PO HS #30 tablet 07/14/16 Carvedilol [Coreg] 6.25 mg PO BIDWM #60 tab 02/25/17 Furosemide [Lasix] 40 mg PO BID #60 02/25/17 Isosorbide MONOnitrate (24 HR) 60 mg PO DAILY #30 02/25/17 [Imdur] Losartan [Cozaar] 50 mg PO DAILY #30 tab 02/25/17 Potassium Chloride [Klor-Con 10] 20 meq PO BIDWM #120 02/25/17 Allergies Allergy/AdvReac Type Severity Reaction Status Date / Time Penicillins Allergy Hives Verified 03/23/15 09:54 ERNST Inhibitors AdvReac Cough Verified 03/23/15 09:53 All systems ED: reviewed and negative except as stated. Review of Systems: As Per HPI Constitutional: Reports: weakness. Denies: fever, chills ENT ED: Reports: congestion. Denies: dysphagia Cardiovascular: Reports: chest pain, dyspnea on exertion, orthopnea, paroxysmal nocturnal dyspnea. Denies: palpitations Respiratory: Reports: cough, dyspnea, wheezes. Denies: hemoptysis, sputum production Gastrointestinal: Denies: abdominal pain, nausea, vomiting, diarrhea Genitourinary: Denies: urgency, dysuria Musculoskeletal: Denies: back pain Integumentary: Denies: rash Neurological: Denies: headache Psychiatric: Reports: anxiety Endocrine: Reports: fatigue Past Medical History - Past Medical History Attestation: Yes The following information was validated with the patient. Source: patient Medical history: Reports: arthritis, cancer, cardiomyopathy, CHF, coronary artery disease, diabetes, GERD, hypertension, thyroid disease Surgical history: Reports: angioplasty/stent, cancer surgery, herniorrhaphy, orthopedic, other, thyroidectomy, other Psychiatric history: Reports: no psych history - Social History Smoking Status: Never smoker Smokeless Tobacco Status: No Alcohol use: Reports: none Drug use: Reports: none Physical Exam Patient is a 71-year-old male is alert and oriented 3 and in acute distress. Patient has severe anxiety from sitting upright and nieces leaning forward in tripod position. - General General appearance: alert, anxious - Head Head exam: atraumatic, normocephalic, normal inspection - Eye Eye exam: Present: normal appearance, PERRL, EOMI - ENT ENT exam: normal exam, normal oropharynx, mucous membranes moist - Neck Neck exam: Present: normal inspection, full ROM, trachea midline - Chest Chest inspection: Present: normal inspection, symmetric chest wall rise. Absent : tenderness - Respiratory Respiratory exam: Present: respiratory distress, other (Rales auscultated bilateral lower lung andrade). Absent: normal lung sounds bilaterally - Cardiovascular Cardiovascular exam: Present: regular rate, normal rhythm - Abdominal Exam Abdominal exam: Present: soft, Non-Tender. Absent: tenderness, distention, guarding, rebound, rigidity - Extremities Exam Extremities exam: Present: pedal edema (Bilateral 2+). Absent: tenderness - Back Exam Back exam: Present: normal inspection, full ROM. Absent: tenderness, CVA tenderness (R), CVA tenderness (L) - Neurological Exam Neurological exam: Present: alert, oriented X3 Course Course Narrative: BiPAP ordered - Consultations Consultation #1: Patient was accepted for admission by Shani Post the hospitalist. Time: 18:14 Vital Signs Temperature 98.0 F 05/07/17 16:57 Pulse Rate 86 05/07/17 16:57 Respiratory Rate 22 05/07/17 16:57 Blood Pressure 160/107 05/07/17 16:57 O2 Sat by Pulse Oximetry 94 05/07/17 16:57 Temperature 98.0 F 05/07/17 16:57 Pulse Rate 80 05/07/17 18:28 Respiratory Rate 22 05/07/17 18:45 Blood Pressure 148/91 05/07/17 18:45 O2 Sat by Pulse Oximetry 99 05/07/17 18:28 Oxygen Delivery Oxygen Delivery Bipap Shortness of Breath/Dyspnea - [facility] Narrative Medical decision making narrative: Patient with severe dyspnea and leaning forward tripod position and unable to sit up or leaning back. Patient concerning for CHF exacerbation. He looks severely fluid overloaded. She has bilateral lower extremity edema 2+ pitting. Patient has wet sounding lungs bilaterally. Patient is placed on BiPAP soon as he arrived. Patient doing better while on BiPAP and is able to lean back at 45 degree angle currently. Patient's lab work shows that he is in CHF exacerbation. BNP 1005 No elevation of troponin and no signs of ischemia found on EKG. chest x-ray shows bilateral pulmonary vascular congestion Patient's except decision to admit. Patient was admitted to the hospital was accepted for admission by Shani Post's the hospitalist. - Lab Data Lab results reviewed: Yes I reviewed the patient's lab results. Lab results narrative: Short CBC 05/07/17 Range/Units 17:36 WBC 7.5 (4.3-11.1) K/mcL Hgb 12.1 L (12.9-16.9) g/dL Hct 38.5 (37.5-50.1) % Plt Count 230 (140-400) K/mcL Neutrophils # 4.5 (1.6-8.9) K/mcL BMP 05/07/17 Range/Units 17:36 Sodium 138 (136-145) mEq/L Potassium 4.3 (3.5-4.5) mEq/L Chloride 105 (98-109) mEq/L Carbon Dioxide 24 (19-29) mEq/L BUN 19 (8-26) mg/dL Creatinine 1.24 (0.72-1.25) mg/dL Glucose 161 H (70-99) mg/dL Calcium 8.2 L (8.6-10.8) mg/dL Cardiac Enzymes 05/07/17 Range/Units 17:36 Troponin I 0.02 (0-0.03) ng/mL Result diagrams: 05/07/17 17:36 05/07/17 17:36 Lab Results 05/07/17 05/07/17 05/07/17 Range/Units 17:36 17:36 17:36 WBC 7.5 (4.3-11.1) K/mcL RBC 4.62 (4.19-5.50) M/mcL Hgb 12.1 L (12.9-16.9) g/dL Hct 38.5 (37.5-50.1) % MCV 83.3 (83.0-100.0) fL MCH 26.2 L (28.0-33.3) pg MCHC 31.4 L (31.6-35.5) g/dL RDW 14.6 H (11.5-14.5) % Plt Count 230 (140-400) K/mcL MPV 10.5 (9.4-12.4) fL Immature Gran % 0.4 (0-4) % Seg Neutrophils % 60.1 % Lymphocytes % 28.8 % Monocytes % 8.4 % Eosinophils % 1.5 % Basophils % 0.8 % Neutrophils # 4.5 (1.6-8.9) K/mcL Lymphocytes # 2.2 (0.6-4.6) K/mcL Monocytes # 0.6 (0.0-1.3) K/mcL Eosinophils # 0.1 (0.0-0.6) K/mcL Basophils # 0.1 (0.0-0.2) K/mcL PT 14.7 H (9.4-12.1) Seconds INR 1.4 APTT 35.5 (26.0-36.0) Seconds Sodium 138 (136-145) mEq/L Potassium 4.3 (3.5-4.5) mEq/L Chloride 105 (98-109) mEq/L Carbon Dioxide 24 (19-29) mEq/L BUN 19 (8-26) mg/dL Creatinine 1.24 (0.72-1.25) mg/dL Est GFR ( Amer) > 60 (> 60) Est GFR (Non-Af Amer) 58 L (> 60) BUN/Creatinine Ratio 15 (6-26) Glucose 161 H (70-99) mg/dL Calculated Osmolality 292 (280-300) Calcium 8.2 L (8.6-10.8) mg/dL Troponin I (0-0.03) ng/mL B-Natriuretic Peptide (0-100) pg/mL 05/07/17 05/07/17 Range/Units 17:36 17:36 WBC (4.3-11.1) K/mcL RBC (4.19-5.50) M/mcL Hgb (12.9-16.9) g/dL Hct (37.5-50.1) % MCV (83.0-100.0) fL MCH (28.0-33.3) pg MCHC (31.6-35.5) g/dL RDW (11.5-14.5) % Plt Count (140-400) K/mcL MPV (9.4-12.4) fL Immature Gran % (0-4) % Seg Neutrophils % % Lymphocytes % % Monocytes % % Eosinophils % % Basophils % % Neutrophils # (1.6-8.9) K/mcL Lymphocytes # (0.6-4.6) K/mcL Monocytes # (0.0-1.3) K/mcL Eosinophils # (0.0-0.6) K/mcL Basophils # (0.0-0.2) K/mcL PT (9.4-12.1) Seconds INR APTT (26.0-36.0) Seconds Sodium (136-145) mEq/L Potassium (3.5-4.5) mEq/L Chloride (98-109) mEq/L Carbon Dioxide (19-29) mEq/L BUN (8-26) mg/dL Creatinine (0.72-1.25) mg/dL Est GFR ( Amer) (> 60) Est GFR (Non-Af Amer) (> 60) BUN/Creatinine Ratio (6-26) Glucose (70-99) mg/dL Calculated Osmolality (280-300) Calcium (8.6-10.8) mg/dL Troponin I 0.02 (0-0.03) ng/mL B-Natriuretic Peptide 1005 H (0-100) pg/mL - Radiology Data Radiology results reviewed: Yes I reviewed the patient's radiology results. Chest X-Ray 05/07/17 17:04 IMPRESSION: 1. Increased moderate right and a small left layering pleural effusions with bibasilar atelectasis. 2. Cardiomegaly with pulmonary vascular congestion suggesting acute congestive heart failure. D/ / Wilbert Katz MD / Wilbert Katz MD Interpreting Provider: Wilbert Katz MD - EKG Data EKG attestation: Yes I reviewed and interpreted this EKG. EKG results narrative: EKG taken 05/07/2017 at 1707 hrs. shows a sinus rhythm at a rate of 85 beats a minute with no acute ST elevations or depressions Nanda's, no QRS widening or QT prolongation. EKG was compared to previous EKG taken 02/18/2017 which also shows sinus rhythm and no acute ischemic signs.
[2017-05-07] MEDS ORDERED: Nitroglycerin 25 MG/250 ML INFUS..BTL IVC SCH (17:30)
[2017-05-07 17:43] LABS: Basophils # 0.1 K/mcL (0.0-0.2); Basophils % 0.8 %; Eosinophils # 0.1 K/mcL (0.0-0.6); Eosinophils % 1.5 %; Hematocrit 38.5 % (37.5-50.1); Hemoglobin 12.1 g/dL (12.9-16.9); Immature Granulocytes % 0.4 % (0-4); Lymphocytes # 2.2 K/mcL (0.6-4.6); Lymphocytes % 28.8 %; Mean Corpuscular HGB Conc 31.4 g/dL (31.6-35.5); Mean Corpuscular Hemoglobin 26.2 pg (28.0-33.3); Mean Corpuscular Volume 83.3 fL (83.0-100.0); Mean Platelet Volume 10.5 fL (9.4-12.4); Monocytes # 0.6 K/mcL (0.0-1.3); Monocytes % 8.4 %; Neutrophils # 4.5 K/mcL (1.6-8.9); Platelet Count 230 K/mcL (140-400); Red Blood Count 4.62 M/mcL (4.19-5.50); Red Cell Distribution Width 14.6 % (11.5-14.5); Segmented Neutrophils % 60.1 %
[2017-05-07 17:48] LABS: INR 1.4; Prothrombin Time 14.7 Seconds (9.4-12.1)
[2017-05-07 17:50] LABS: Activated Partial Thrombo Time 35.5 Seconds (26.0-36.0)
[2017-05-07 17:56] LABS: BUN/Creatinine Ratio 15 (6-26); Blood Urea Nitrogen 19 mg/dL (8-26); Calcium 8.2 mg/dL (8.6-10.8); Carbon Dioxide 24 mEq/L (19-29); Chloride 105 mEq/L (98-109); Glucose 161 mg/dL (70-99); Osmolality,Calculated 292 (280-300); Potassium 4.3 mEq/L (3.5-4.5); Sodium 138 mEq/L (136-145); eGFR For African Americans > 60 (> 60); eGFR For Non-African Americans 58 (> 60)
--- NOTE | 2017-05-07 20:11 | Internal Med History&Physical ---
Date of Encounter: 05/07/17 Time of Encounter: 20:10 Internal Medicine - H&P: HPI History of present illness: Mr. Stout is a 71 year old male Past Med Surg Social Fam HX - Past Medical History Medical history: arthritis, cancer, cardiomyopathy, CHF, coronary artery disease , diabetes, GERD, hypertension, thyroid disease Psychiatric history: no psych history - Past Surgical History Surgical History: angioplasty/stent, cancer surgery, herniorrhaphy, orthopedic, other, thyroidectomy, other - Social History Smoking Status: Never smoker Smokeless Tobacco Status: No Alcohol use: none Drug use: none - Family History Mother Living Status: Still Living Father Living Status: Hx Family Cardiac Disorders: Yes Hx Family Cancer: No Hx Family GI Disorders: No Internal Medicine - H&P: Meds Atorvastatin [Lipitor] 40 mg PO HS #30 tablet 04/03/15 [Rx] metFORMIN [Glucophage] 1,000 mg PO BID 07/07/16 [History] Apixaban [Eliquis] 2.5 mg PO BID #30 tablet 07/14/16 [Rx] Montelukast [Singulair] 10 mg PO HS #30 tablet 07/14/16 [Rx] DiphenhydraMINE [Benadryl] 25 mg PO HS PRN 02/18/17 [History] Insulin DETEMIR [Levemir] 60 unit SQ QAM 02/18/17 [History] Docusate [Colace] 100 mg PO DAILY PRN 02/19/17 [History] Insulin LISPRO [HumaLOG] 0 units SQ TIDWM 02/19/17 [History] Carvedilol [Coreg] 6.25 mg PO BIDWM #60 tab 02/25/17 [Rx] Furosemide [Lasix] 40 mg PO BID #60 02/25/17 [Rx] Isosorbide MONOnitrate (24 HR) [Imdur] 60 mg PO DAILY #30 02/25/17 [Rx] Gabapentin [Neurontin] 1,200 mg PO TID 05/07/17 [History] Levothyroxine Sodium [Synthroid] 200 mcg PO QAM 05/07/17 [History] Losartan [Cozaar] 25 mg PO DAILY 05/07/17 [History] 3 Allergy/AdvReac Type Severity Reaction Status Date / Time Penicillins Allergy Hives Verified 03/23/15 09:54 ERNST Inhibitors AdvReac Cough Verified 03/23/15 09:53 All Systems PM: A 10-system review of systems was performed and is negative for pertinent findings except as documented above in the HPI. - Constitutional Vitals: Temp Pulse Resp BP Pulse Ox 98.1 F 81 20 146/75 100 05/07/17 19:26 05/07/17 19:26 05/07/17 19:26 05/07/17 19:26 05/07/17 19:26 Internal Med - H&P Results - Labs CBC & Chem 7: 05/07/17 17:36 05/07/17 17:36
[2017-05-07] MEDS ORDERED: Furosemide 20 MG/2 ML VIAL IVP ONE (21:58)
--- NOTE | 2017-05-07 22:08 | Event Note ---
Date of Encounter: 05/07/17 Time of Encounter: 22:06 Patient seen and examined with medical bill processor. Acute congestive heart failure exacerbations due to systolic dysfunction. I will start the patient on lasix 80 mg twice a day. He is on nitro drip. Follow intake and output. He is currently on BiPAP due to increased work of breathing. He has known coronary disease with PCI to the LAD and LCx 2 years ago. He has chest tightness likely related to the heart failure rather than anginal pain. He is full code.
[2017-05-07] MEDS ORDERED: *HR* Morphine 2 MG/ML SYRINGE IVP ONE (22:24)
[2017-05-07] MEDS ORDERED: *HR* Labetalol 20 MG/4 ML SYRINGE IVP ONE (23:35)
--- NOTE | 2017-05-07 23:56 | Internal Med History&Physical ---
Date of Encounter: 05/07/17 Time of Encounter: 20:30 Assessment and Plan (1) Acute systolic CHF (congestive heart failure) Current visit: No Status: Acute Patient presents to the hospital with shortness of breath likely secondary to congestive heart failure, possibly exacerbated by medical noncompliance. -Patient will be started on Lasix 80 mg twice per day. -Patient was placed on BiPAP in the ER, and is still on BiPAP until patient's condition improves. -Patient is also on nitro drip. -Monitor intake and output, monitor vital signs. (2) Pleural effusion due to CHF (congestive heart failure) Current visit: No Status: Chronic Patient's chest x-ray demonstrated moderate right and small left layering pleural effusion as well as bibasilar atelectasis. -Chest x-ray also demonstrated cardiomegaly with pulmonary vascular congestion suggesting acute congestive heart failure. -Lasix 80 mg twice a day -Patient on nitro drip -Strict intake and output -Patient currently on BiPAP (3) Edema Current visit: No Status: Acute Patient has +2 pitting edema in his lower extremities bilaterally. -This is likely secondary to congestive heart failure. -Patient is currently on Lasix. 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 Stout is a 71 year old male with a past medical history of arthritis, cancer , cardiomyopathy, CHF, coronary artery disease, diabetes, GERD, hypertension, and thyroid disease who presented to the ER with chief complaint of severe shortness of breath that had been worsening over the last several days. Patient presented with severe dyspnea and leaning forward in the tripod position , unable to sit up or leaning back. Patient also had swelling in his lower extremities, +2 pitting edema. Upon arrival to the hospital, patient was placed on BiPAP. Admission vitals were as follows: Temperature was 98.0, pulse was 86, respiratory rate was 22, blood pressure was 160/107, and O2 saturation was 94. After receiving BiPAP, patient's O2 saturation increased to 100. Chest x-ray was performed, showing an increased moderate right and a small left layering pleural effusion with bibasilar atelectasis. Chest x-ray also showed cardiomegaly with pulmonary vascular congestion suggesting acute congestive heart failure. Patient did not have an elevated troponin, and there were no signs of ischemia found on EKG. BNP was 1005. Patient says that he follows Dr. Son for his congestive heart failure. He states that over the last 2 months he has been gaining weight, which he estimates to be approximately 20 pounds. 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 Patient notes that he has been on a strict sodium diet, although he has not folded very closely. He admits to eating out frequently. Patient was placed on Lasix 40 mg and remains on BiPAP until his condition improves. Past Med Surg Social Fam HX - Past Medical History Medical history: arthritis, cancer, cardiomyopathy, CHF, coronary artery disease , diabetes, GERD, hypertension, thyroid disease Psychiatric history: no psych history - Past Surgical History Surgical History: angioplasty/stent, cancer surgery, herniorrhaphy, orthopedic, other, thyroidectomy, other - Social History Smoking Status: Never smoker Smokeless Tobacco Status: No Alcohol use: none Drug use: none - Family History Mother Living Status: Still Living Father Living Status: Hx Family Cardiac Disorders: Yes Hx Family Cancer: No Hx Family GI Disorders: No Internal Medicine - H&P: Meds Atorvastatin [Lipitor] 40 mg PO HS #30 tablet 04/03/15 [Rx] metFORMIN [Glucophage] 1,000 mg PO BID 07/07/16 [History] Apixaban [Eliquis] 2.5 mg PO BID #30 tablet 07/14/16 [Rx] Montelukast [Singulair] 10 mg PO HS #30 tablet 07/14/16 [Rx] DiphenhydraMINE [Benadryl] 25 mg PO HS PRN 02/18/17 [History] Insulin DETEMIR [Levemir] 60 unit SQ QAM 02/18/17 [History] Docusate [Colace] 100 mg PO DAILY PRN 02/19/17 [History] Insulin LISPRO [HumaLOG] 0 units SQ TIDWM 02/19/17 [History] Carvedilol [Coreg] 6.25 mg PO BIDWM #60 tab 02/25/17 [Rx] Furosemide [Lasix] 40 mg PO BID #60 02/25/17 [Rx] Isosorbide MONOnitrate (24 HR) [Imdur] 60 mg PO DAILY #30 02/25/17 [Rx] Gabapentin [Neurontin] 1,200 mg PO TID 05/07/17 [History] Levothyroxine Sodium [Synthroid] 200 mcg PO QAM 05/07/17 [History] Losartan [Cozaar] 25 mg PO DAILY 05/07/17 [History] 3 Allergy/AdvReac Type Severity Reaction Status Date / Time Penicillins Allergy Hives Verified 03/23/15 09:54 ERNST Inhibitors AdvReac Cough Verified 03/23/15 09:53 All Systems PM: A 10-system review of systems was performed and is negative for pertinent findings except as documented above in the HPI. - Constitutional Constitutional: no chills, no excessive sweating, no weakness - Cardiovascular Cardiovascular ROS IM: dyspnea, dyspnea on exertion, edema, no chest pain, no palpitations, no syncope - Respiratory Respiratory: dyspnea, wheezing, no stridor - Constitutional Vitals: Temp Pulse Resp BP Pulse Ox 97.9 F 82 22 174/77 98 05/07/17 23:21 05/07/17 23:21 05/07/17 23:21 05/07/17 23:21 05/07/17 23:21 General appearance: Present: mild distress, morbidly obese - Head Head exam: Present: normal inspection - Respiratory Respiratory exam: Present: rales, respiratory distress, wheezes. Absent: chest wall tenderness, prolonged expiratory phase - Cardiovascular Cardiovascular exam: Present: RRR, +S1, +S2. Absent: diastolic murmur, gallop, rubs, systolic murmur - Extremities Exam Extremities exam: Present: pedal edema - Psychiatric Psychiatric exam: Present: normal mood Internal Med - H&P Results - Labs CBC & Chem 7: 05/07/17 17:36 05/07/17 17:36 Labs: Cardiac Enzymes 05/07/17 Range/Units 22:23 Troponin I 0.02 (0-0.03) ng/mL
[2017-05-08 03:37] LABS: Basophils # 0.1 K/mcL (0.0-0.2); Basophils % 0.6 %; Eosinophils # 0.1 K/mcL (0.0-0.6); Eosinophils % 1.4 %; Hematocrit 37.1 % (37.5-50.1); Hemoglobin 11.7 g/dL (12.9-16.9); Immature Granulocytes % 0.4 % (0-4); Lymphocytes # 2.1 K/mcL (0.6-4.6); Lymphocytes % 24.9 %; Mean Corpuscular HGB Conc 31.5 g/dL (31.6-35.5); Mean Corpuscular Hemoglobin 26.2 pg (28.0-33.3); Mean Corpuscular Volume 83.2 fL (83.0-100.0); Mean Platelet Volume 10.8 fL (9.4-12.4); Monocytes # 0.7 K/mcL (0.0-1.3); Monocytes % 8.3 %; Neutrophils # 5.4 K/mcL (1.6-8.9); Platelet Count 220 K/mcL (140-400); Red Blood Count 4.46 M/mcL (4.19-5.50); Red Cell Distribution Width 14.6 % (11.5-14.5); Segmented Neutrophils % 64.4 %
[2017-05-08 03:45] LABS: BUN/Creatinine Ratio 16 (6-26); Blood Urea Nitrogen 18 mg/dL (8-26); Calcium 7.7 mg/dL (8.6-10.8); Carbon Dioxide 25 mEq/L (19-29); Chloride 105 mEq/L (98-109); Glucose 110 mg/dL (70-99); Magnesium 1.7 mg/dL (1.6-2.6); Osmolality,Calculated 295 (280-300); Potassium 3.4 mEq/L (3.5-4.5); Sodium 141 mEq/L (136-145); eGFR For African Americans > 60 (> 60); eGFR For Non-African Americans > 60 (> 60)
[2017-05-08] MEDS: *HR* Labetalol 20 MG/4 ML SYRINGE IVP PRN (03:45)
[2017-05-08] MEDS ORDERED: D5% in Water 1,000 ML IVC PRN (07:55)
[2017-05-08] MEDS ORDERED: *HR* Dextrose 50 % in Water (Syg) 50 ML SYRINGE IVP PRN (07:55)
[2017-05-08] MEDS ORDERED: Dextrose Gel 15 GM PO PRN ×2 (07:55)
[2017-05-08] MEDS: Insulin LISPRO 300 UNITS/3 ML VIAL SQ SCH ×6 (07:58→21:32)
[2017-05-08] MEDS ORDERED: Furosemide 20 MG/2 ML VIAL IVP SCH (09:00)
[2017-05-08] MEDS: APIXABAN 5 MG TABLET PO SCH ×2 (09:58→21:30)
[2017-05-08] MEDS: Gabapentin 400 MG CAPSULE PO SCH ×3 (09:58→21:30)
[2017-05-08] MEDS: Furosemide 20 MG/2 ML VIAL IVP SCH ×2 (10:01→16:50)
[2017-05-08] MEDS ORDERED: Potassium Chloride 40 MEQ, Lidocaine 1% 2 ML in D5% in Water 500 ML IVPB ONE (10:35)
[2017-05-08] MEDS ORDERED: Magnesium Sulfate 2 GM in D5% in Water 100 ML IVPB ONE (10:35)
[2017-05-08] MEDS ORDERED: Furosemide 40 MG/4 ML VIAL IVP STA (10:37)
[2017-05-08] MEDS ORDERED: metOLazone 5 MG TABLET PO SCH (10:45)
--- NOTE | 2017-05-08 14:53 | Internal Med Progress Note ---
Date of Encounter: 05/08/17 Time of Encounter: 14:48 - Assessment and plan (1) Acute systolic CHF (congestive heart failure) Current Visit: Yes Status: Acute (2) Pleural effusion Current Visit: Yes Status: Acute (3) Ischemic dilated cardiomyopathy Current Visit: Yes Status: Chronic (4) Hypertension Current Visit: Yes Status: Chronic Qualifiers: Hypertension type: essential hypertension Qualified Code(s): I10 - Essential (primary) hypertension (5) Dyslipidemia Current Visit: Yes Status: Chronic (6) Hypothyroidism Current Visit: Yes Status: Chronic Qualifiers: Hypothyroidism type: postoperative Qualified Code(s): E89.0 - Postprocedural hypothyroidism (7) Atrial fibrillation Current Visit: Yes Status: Chronic Qualifiers: Atrial fibrillation type: chronic Qualified Code(s): I48.2 - Chronic atrial fibrillation (8) Type 2 diabetes mellitus Current Visit: Yes Status: Chronic Qualifiers: Diabetes mellitus complication status: with unspecified complications Diabetes mellitus intermediate insulin use: with intermediate use Qualified Code(s) : E11.8 - Type 2 diabetes mellitus with unspecified complications; 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 Juan Hernandez is a 71-year-old male past medical history significant for diabetes hypertension dyslipidemia hypothyroidism coronary artery disease is status post a stent and congestive heart failure. He is admitted with the severe dyspnea and orthopnea while he noted increased weight gain as well as leg edema and last few weeks. He is complaining of some epigastric discomfort and when he came in he had some chest pain which has resolved now and his breathing is much better after he was given IV Lasix. His BNP on admission was around thousand. We plan to aggressively diurese him therefore Lasix 80 IV twice a day with the Zaroxolyn, aortic CBC CMP magnesium and replacement of potassium and magnesium as required. Adding Protonix for epigastric discomfort. Patient takes eliquis for cardiomyopathy. Echocardiogram done on May 05 showed EF of 30% with global hypokinesis. Cardiology is consulted. Strict I's and O's. He is recommended to use limited amount of water. CBC CMP magnesium ordered. Goal is to take out at least 12 L of water. Accu-Chek 4 times a day with sliding scale coverage. Daily blood pressure monitoring. - Constitutional Vitals: Temp Pulse Resp BP Pulse Ox 97.6 F 79 20 147/76 95 05/08/17 10:51 05/08/17 10:51 05/08/17 10:51 05/08/17 10:51 05/08/17 10:51 General appearance: Present: mild distress, morbidly obese - Head Head exam: Present: atraumatic, normocephalic - Eye Eye exam: Present: PERRL, conjuntiva pink, sclera anicteric Pupils: Present: PERRL - Neck Neck exam general surgery: Present: supple, trachea midline. Absent: lymphadenopathy - Respiratory Respiratory exam: Present: CTAB. Absent: accessory muscle use, rales, rhonchi, wheezes - Cardiovascular Cardiovascular exam: Present: distant heart sounds, RRR, +S1, +S2. Absent: diastolic murmur, gallop, rubs, systolic murmur - GI/Abdominal GI/Abdominal exam: Present: normal bowel sounds, soft, no peritoneal signs. Absent: distended, tenderness - Extremities Exam Extremities exam: Present: pedal edema, warm, radial pulses palpable and symmetrical. Absent: calf tenderness, cyanotic - Neurological Exam Neurological exam: Present: CN II-XII intact, oriented X3, no focal deficits. Absent: pronater drift, facial droop, speech deficit - Skin Skin exam: Present: dry, intact Internal Medicine: Result - Labs CBC & Chem 7: 05/08/17 02:52 05/08/17 02:52 Labs: Short CBC 05/08/17 Range/Units 02:52 WBC 8.3 (4.3-11.1) K/mcL Hgb 11.7 L (12.9-16.9) g/dL Hct 37.1 L (37.5-50.1) % Plt Count 220 (140-400) K/mcL Neutrophils # 5.4 (1.6-8.9) K/mcL BMP 05/08/17 02:52 Sodium 141 Potassium 3.4 L Chloride 105 Carbon Dioxide 25 BUN 18 Creatinine 1.14 Glucose 110 H Calcium 7.7 L Cardiac Enzymes 05/07/17 Range/Units 22:23 Troponin I 0.02 (0-0.03) ng/mL - ABG Interpretation ABG results: PT/INR, D-dimer PT 14.7 Seconds (9.4-12.1) H 05/07/17 17:36 Consult Discharge Plan - Plan Referrals: Saloni Lombardo, GENE [Primary Care Provider] - 05/14/17 2:00 pm (Please follow up as schedule...)
[2017-05-08] MEDS: Benzonatate 100 MG CAPSULE PO PRN ×2 (15:18→21:36)
--- NOTE | 2017-05-08 18:08 | Electrocardiograph Report ---
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
[2017-05-08] MEDS: Insulin DETEMIR 100 UNIT/ML X5UNITS SQ SCH (21:32)
[2017-05-09 03:05] LABS: Basophils # 0.1 K/mcL (0.0-0.2); Basophils % 0.9 %; Eosinophils # 0.1 K/mcL (0.0-0.6); Eosinophils % 1.9 %; Hemoglobin 12.2 g/dL (12.9-16.9); Immature Granulocytes % 0.2 % (0-4); Lymphocytes # 1.1 K/mcL (0.6-4.6); Mean Corpuscular HGB Conc 32.1 g/dL (31.6-35.5); Mean Corpuscular Hemoglobin 26.8 pg (28.0-33.3); Mean Corpuscular Volume 83.3 fL (83.0-100.0); Mean Platelet Volume 10.2 fL (9.4-12.4); Monocytes # 0.7 K/mcL (0.0-1.3); Monocytes % 12.5 %; Neutrophils # 3.4 K/mcL (1.6-8.9); Platelet Count 201 K/mcL (140-400); Red Blood Count 4.56 M/mcL (4.19-5.50); Red Cell Distribution Width 14.4 % (11.5-14.5); Segmented Neutrophils % 64.5 %
[2017-05-09 03:20] LABS: Alanine Aminotransferase 15 Units/L (0-55); Albumin 3.4 g/dL (3.5-5.0); Albumin/Globulin Ratio 0.9 (1.1-2.2); Alkaline Phosphatase 74 Units/L (38-126); Aspartate Amino Transferase 14 Units/L (5-34); BUN/Creatinine Ratio 16 (6-26); Bilirubin,Total 1.5 mg/dL (0.2-1.2); Blood Urea Nitrogen 19 mg/dL (8-26); Calcium 7.8 mg/dL (8.6-10.8); Carbon Dioxide 31 mEq/L (19-29); Chloride 101 mEq/L (98-109); Globulin 3.7 g/dL (2.4-3.5); Glucose 160 mg/dL (70-99); Magnesium 1.8 mg/dL (1.6-2.6); Osmolality,Calculated 296 (280-300); Potassium 3.2 mEq/L (3.5-4.5); Sodium 140 mEq/L (136-145); Total Protein 7.1 g/dL (6.0-8.3); eGFR For African Americans > 60 (> 60); eGFR For Non-African Americans > 60 (> 60)
[2017-05-09] MEDS: metOLazone 5 MG TABLET PO SCH (06:26)
[2017-05-09] MEDS: Furosemide 20 MG/2 ML VIAL IVP SCH ×2 (07:55→17:23)
[2017-05-09] MEDS: APIXABAN 5 MG TABLET PO SCH ×2 (07:55→20:36)
[2017-05-09] MEDS: Insulin LISPRO 300 UNITS/3 ML VIAL SQ SCH ×4 (07:55→20:37)
[2017-05-09] MEDS: Gabapentin 400 MG CAPSULE PO SCH ×3 (08:20→20:36)
[2017-05-09] MEDS ORDERED: Potassium Chloride 40 MEQ, Lidocaine 1% 2 ML in D5% in Water 500 ML IVPB ONE (10:40)
[2017-05-09] MEDS ORDERED: Magnesium Sulfate 2 GM in D5% in Water 100 ML IVPB ONE (10:43)
--- NOTE | 2017-05-09 10:44 | Internal Med Progress Note ---
Date of Encounter: 05/09/17 Time of Encounter: 10:42 - Assessment and plan (1) Acute systolic CHF (congestive heart failure) Current Visit: Yes Status: Acute (2) Pleural effusion Current Visit: Yes Status: Acute (3) Ischemic dilated cardiomyopathy Current Visit: Yes Status: Chronic (4) Hypertension Current Visit: Yes Status: Chronic Qualifiers: Hypertension type: essential hypertension Qualified Code(s): I10 - Essential (primary) hypertension (5) Dyslipidemia Current Visit: Yes Status: Chronic (6) Hypothyroidism Current Visit: Yes Status: Chronic Qualifiers: Hypothyroidism type: postoperative Qualified Code(s): E89.0 - Postprocedural hypothyroidism (7) Atrial fibrillation Current Visit: Yes Status: Chronic Qualifiers: Atrial fibrillation type: chronic Qualified Code(s): I48.2 - Chronic atrial fibrillation (8) Type 2 diabetes mellitus Current Visit: Yes Status: Chronic Qualifiers: Diabetes mellitus complication status: with unspecified complications Diabetes mellitus care home insulin use: with care home use Qualified Code(s) : E11.8 - Type 2 diabetes mellitus with unspecified complications; 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 Juan Hernandez is a 71-year-old male past medical history significant for diabetes hypertension dyslipidemia hypothyroidism coronary artery disease is status post a stent and congestive heart failure. He is admitted with the severe dyspnea and orthopnea while he noted increased weight gain as well as leg edema and last few weeks. He is complaining of some epigastric discomfort and when he came in he had some chest pain which has resolved now and his breathing is much better after he was given IV Lasix. His BNP on admission was around thousand. We plan to aggressively diurese him therefore Lasix 80 IV twice a day with the Zaroxolyn, aortic CBC CMP magnesium and replacement of potassium and magnesium as required. Adding Protonix for epigastric discomfort. Patient takes eliquis for cardiomyopathy. Echocardiogram done on May 05 showed EF of 30% with global hypokinesis. Cardiology is consulted. Strict I's and O's. He is recommended to use limited amount of water. CBC CMP magnesium ordered. Goal is to take out at least 12 L of water. Accu-Chek 4 times a day with sliding scale coverage. Daily blood pressure monitoring. -3500 mL net potassium 3.2 supplement KCl 40 IV 40 by mouth in anticipation that with aggressive diuresis those numbers will go down mag 2 g IV in anticipation. - Constitutional Vitals: Temp Pulse Resp BP Pulse Ox 98.6 F 84 22 167/83 93 05/09/17 07:35 05/09/17 07:35 05/09/17 07:35 05/09/17 07:35 05/09/17 08:08 General appearance: Present: mild distress, morbidly obese - Head Head exam: Present: atraumatic, normocephalic - Eye Eye exam: Present: PERRL, conjuntiva pink, sclera anicteric Pupils: Present: PERRL - Neck Neck exam general surgery: Present: supple, trachea midline. Absent: lymphadenopathy - Respiratory Respiratory exam: Present: CTAB. Absent: accessory muscle use, rales, rhonchi, wheezes Additional comments: Breath sounds much better on the left than on the right - Cardiovascular Cardiovascular exam: Present: RRR, +S1, +S2. Absent: diastolic murmur, gallop, rubs, systolic murmur - GI/Abdominal GI/Abdominal exam: Present: normal bowel sounds, soft, no peritoneal signs. Absent: distended, tenderness - Extremities Exam Extremities exam: Present: pedal edema, warm, radial pulses palpable and symmetrical. Absent: calf tenderness, cyanotic - Neurological Exam Neurological exam: Present: CN II-XII intact, oriented X3, no focal deficits. Absent: pronater drift, facial droop, speech deficit - Skin Skin exam: Present: dry, intact Internal Medicine: Result - Labs CBC & Chem 7: 05/09/17 02:54 05/09/17 02:54 Labs: Short CBC 05/09/17 Range/Units 02:54 WBC 5.3 (4.3-11.1) K/mcL Hgb 12.2 L (12.9-16.9) g/dL Hct 38.0 (37.5-50.1) % Plt Count 201 (140-400) K/mcL Neutrophils # 3.4 (1.6-8.9) K/mcL BMP 05/09/17 02:54 Sodium 140 Potassium 3.2 L Chloride 101 Carbon Dioxide 31 H BUN 19 Creatinine 1.18 Glucose 160 H Calcium 7.8 L Liver Function 05/09/17 Range/Units 02:54 Total Bilirubin 1.5 H (0.2-1.2) mg/dL AST 14 (5-34) Units/L ALT 15 (0-55) Units/L Alkaline Phosphatase 74 (38-126) Units/L Albumin 3.4 L (3.5-5.0) g/dL - ABG Interpretation ABG results: PT/INR, D-dimer PT 14.7 Seconds (9.4-12.1) H 05/07/17 17:36 Consult Discharge Plan - Plan Referrals: Saloni Lombardo, GENE [Primary Care Provider] - 05/14/17 2:00 pm (Please follow up as schedule...)
[2017-05-09] MEDS: Insulin DETEMIR 100 UNIT/ML X5UNITS SQ SCH (20:36)
[2017-05-09] MEDS: Benzonatate 100 MG CAPSULE PO PRN (21:28)
[2017-05-10 04:57] LABS: Basophils % 0.9 %; Eosinophils # 0.1 K/mcL (0.0-0.6); Eosinophils % 2.6 %; Immature Granulocytes % 0.4 % (0-4); Lymphocytes # 1.5 K/mcL (0.6-4.6); Lymphocytes % 31.8 %; Mean Corpuscular HGB Conc 31.6 g/dL (31.6-35.5); Mean Corpuscular Hemoglobin 26.1 pg (28.0-33.3); Mean Corpuscular Volume 82.6 fL (83.0-100.0); Mean Platelet Volume 10.5 fL (9.4-12.4); Monocytes # 0.9 K/mcL (0.0-1.3); Monocytes % 19.3 %; Neutrophils # 2.1 K/mcL (1.6-8.9); Platelet Count 188 K/mcL (140-400); Red Cell Distribution Width 14.4 % (11.5-14.5)
[2017-05-10 05:17] LABS: Alanine Aminotransferase 13 Units/L (0-55); Albumin 3.3 g/dL (3.5-5.0); Alkaline Phosphatase 69 Units/L (38-126); Aspartate Amino Transferase 14 Units/L (5-34); BUN/Creatinine Ratio 18 (6-26); Bilirubin,Total 1.2 mg/dL (0.2-1.2); Blood Urea Nitrogen 25 mg/dL (8-26); Calcium 7.6 mg/dL (8.6-10.8); Carbon Dioxide 32 mEq/L (19-29); Chloride 96 mEq/L (98-109); Globulin 3.4 g/dL (2.4-3.5); Glucose 216 mg/dL (70-99); Osmolality,Calculated 295 (280-300); Potassium 3.1 mEq/L (3.5-4.5); Sodium 137 mEq/L (136-145); Total Protein 6.7 g/dL (6.0-8.3); eGFR For African Americans > 60 (> 60); eGFR For Non-African Americans 50 (> 60)
[2017-05-10 05:19] LABS: Platelet Estimate Normal (Normal); Reactive Lymphocytes Present (Not Present)
[2017-05-10 05:20] LABS: Polychromasia 1+ (Not Present)
[2017-05-10] MEDS: metOLazone 5 MG TABLET PO SCH (06:42)
[2017-05-10] MEDS ORDERED: Potassium Chloride 40 MEQ, Lidocaine 1% 2 ML in D5% in Water 500 ML IVPB ONE (08:23)
--- NOTE | 2017-05-10 08:24 | Internal Med Progress Note ---
Date of Encounter: 05/10/17 Time of Encounter: 08:20 - Assessment and plan (1) Acute systolic CHF (congestive heart failure) Current Visit: Yes Status: Acute (2) Pleural effusion Current Visit: Yes Status: Acute (3) Ischemic dilated cardiomyopathy Current Visit: Yes Status: Chronic (4) Hypertension Current Visit: Yes Status: Chronic Qualifiers: Hypertension type: essential hypertension Qualified Code(s): I10 - Essential (primary) hypertension (5) Dyslipidemia Current Visit: Yes Status: Chronic (6) Hypothyroidism Current Visit: Yes Status: Chronic Qualifiers: Hypothyroidism type: postoperative Qualified Code(s): E89.0 - Postprocedural hypothyroidism (7) Atrial fibrillation Current Visit: Yes Status: Chronic Qualifiers: Atrial fibrillation type: chronic Qualified Code(s): I48.2 - Chronic atrial fibrillation (8) Type 2 diabetes mellitus Current Visit: Yes Status: Chronic Qualifiers: Diabetes mellitus complication status: with unspecified complications Diabetes mellitus custodial insulin use: with custodial use Qualified Code(s) : E11.8 - Type 2 diabetes mellitus with unspecified complications; 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 Juan Hernnadez is a 71-year-old male past medical history significant for diabetes hypertension dyslipidemia hypothyroidism coronary artery disease is status post a stent and congestive heart failure. He is admitted with the severe dyspnea and orthopnea while he noted increased weight gain as well as leg edema and last few weeks. He is complaining of some epigastric discomfort and when he came in he had some chest pain which has resolved now and his breathing is much better after he was given IV Lasix. His BNP on admission was around thousand. We plan to aggressively diurese him therefore Lasix 80 IV twice a day with the Zaroxolyn, aortic CBC CMP magnesium and replacement of potassium and magnesium as required. Adding Protonix for epigastric discomfort. Patient takes eliquis for cardiomyopathy. Echocardiogram done on May 05 showed EF of 30% with global hypokinesis. Cardiology is consulted. Strict I's and O's. He is recommended to use limited amount of water. CBC CMP magnesium ordered. Goal is to take out at least 12 L of water. Accu-Chek 4 times a day with sliding scale coverage. Daily blood pressure monitoring. -4900 mL net ,potassium 3.1, supplement KCl 40 IV & 40 by mouth, mag 2 g IV in anticipation. Creatinine slightly higher repeat BMP . Coughing. Check chest x -ray - Constitutional Vitals: Temp Pulse Resp BP Pulse Ox 98.4 F 83 16 146/87 92 05/10/17 07:00 05/10/17 07:00 05/10/17 07:00 05/10/17 07:00 05/10/17 07:00 General appearance: Present: A&O X 3, morbidly obese, no acute distress, answers questions appropriately - Head Head exam: Present: atraumatic, normocephalic - Eye Eye exam: Present: PERRL, conjuntiva pink, sclera anicteric Pupils: Present: PERRL - Neck Neck exam general surgery: Present: supple, trachea midline. Absent: lymphadenopathy - Respiratory Respiratory exam: Present: CTAB. Absent: accessory muscle use, rales, rhonchi, wheezes - Cardiovascular Cardiovascular exam: Present: RRR, +S1, +S2. Absent: diastolic murmur, gallop, rubs, systolic murmur - GI/Abdominal GI/Abdominal exam: Present: normal bowel sounds, soft, no peritoneal signs. Absent: distended, tenderness - Extremities Exam Extremities exam: Present: pedal edema, warm, radial pulses palpable and symmetrical. Absent: calf tenderness, cyanotic - Neurological Exam Neurological exam: Present: CN II-XII intact, oriented X3, no focal deficits. Absent: pronater drift, facial droop, speech deficit - Skin Skin exam: Present: dry, intact Internal Medicine: Result - Labs CBC & Chem 7: 05/10/17 04:31 05/10/17 04:31 Labs: Short CBC 05/10/17 Range/Units 04:31 WBC 4.6 (4.3-11.1) K/mcL Hgb 12.0 L (12.9-16.9) g/dL Hct 38.0 (37.5-50.1) % Plt Count 188 (140-400) K/mcL Neutrophils # 2.1 (1.6-8.9) K/mcL BMP 05/10/17 04:31 Sodium 137 Potassium 3.1 L Chloride 96 L Carbon Dioxide 32 H BUN 25 Creatinine 1.40 H Glucose 216 H Calcium 7.6 L Liver Function 05/10/17 Range/Units 04:31 Total Bilirubin 1.2 (0.2-1.2) mg/dL AST 14 (5-34) Units/L ALT 13 (0-55) Units/L Alkaline Phosphatase 69 (38-126) Units/L Albumin 3.3 L (3.5-5.0) g/dL - ABG Interpretation ABG results: PT/INR, D-dimer PT 14.7 Seconds (9.4-12.1) H 05/07/17 17:36 Consult Discharge Plan - Plan Referrals: Saloni Lombardo, THRESHING DEPARTMENT SUPERVISOR [Primary Care Provider] - 05/14/17 2:00 pm (Please follow up as schedule...)
[2017-05-10] MEDS: Insulin LISPRO 300 UNITS/3 ML VIAL SQ SCH ×4 (08:47→20:47)
[2017-05-10] MEDS: Gabapentin 400 MG CAPSULE PO SCH ×3 (08:48→20:29)
[2017-05-10] MEDS: APIXABAN 5 MG TABLET PO SCH ×2 (08:49→20:28)
[2017-05-10] MEDS: Furosemide 20 MG/2 ML VIAL IVP SCH ×2 (08:49→17:03)
[2017-05-10] MEDS: Benzonatate 100 MG CAPSULE PO PRN (20:28)
[2017-05-10] MEDS: Insulin DETEMIR 100 UNIT/ML X5UNITS SQ SCH (20:46)
[2017-05-10] MEDS: *HR* Labetalol 20 MG/4 ML SYRINGE IVP PRN (20:47)
[2017-05-11 04:49] LABS: Basophils % 0.7 %; Eosinophils # 0.1 K/mcL (0.0-0.6); Eosinophils % 3.1 %; Hematocrit 38.9 % (37.5-50.1); Hemoglobin 12.5 g/dL (12.9-16.9); Immature Granulocytes % 0.2 % (0-4); Lymphocytes # 1.5 K/mcL (0.6-4.6); Lymphocytes % 36.2 %; Mean Corpuscular HGB Conc 32.1 g/dL (31.6-35.5); Mean Corpuscular Hemoglobin 26.4 pg (28.0-33.3); Mean Corpuscular Volume 82.2 fL (83.0-100.0); Mean Platelet Volume 10.6 fL (9.4-12.4); Monocytes # 0.7 K/mcL (0.0-1.3); Monocytes % 17.5 %; Neutrophils # 1.8 K/mcL (1.6-8.9); Platelet Count 185 K/mcL (140-400); Red Blood Count 4.73 M/mcL (4.19-5.50); Red Cell Distribution Width 14.5 % (11.5-14.5); Segmented Neutrophils % 42.3 %
[2017-05-11 05:10] LABS: Albumin 3.2 g/dL (3.5-5.0); Albumin/Globulin Ratio 0.9 (1.1-2.2); Calcium 7.6 mg/dL (8.6-10.8); Globulin 3.7 g/dL (2.4-3.5); Potassium 3.1 mEq/L (3.5-4.5); Total Protein 6.9 g/dL (6.0-8.3)
[2017-05-11] MEDS: metOLazone 5 MG TABLET PO SCH (06:51)
[2017-05-11] MEDS ORDERED: Potassium Chloride 40 MEQ, Lidocaine 1% 2 ML in D5% in Water 500 ML IVPB ONE (07:39)
--- NOTE | 2017-05-11 08:05 | Internal Med Progress Note ---
Date of Encounter: 05/11/17 Time of Encounter: 08:02 - Assessment and plan (1) Acute systolic CHF (congestive heart failure) Current Visit: Yes Status: Acute (2) Pleural effusion Current Visit: Yes Status: Acute (3) Ischemic dilated cardiomyopathy Current Visit: Yes Status: Chronic (4) Hypertension Current Visit: Yes Status: Chronic Qualifiers: Hypertension type: essential hypertension Qualified Code(s): I10 - Essential (primary) hypertension (5) Dyslipidemia Current Visit: Yes Status: Chronic (6) Hypothyroidism Current Visit: Yes Status: Chronic Qualifiers: Hypothyroidism type: postoperative Qualified Code(s): E89.0 - Postprocedural hypothyroidism (7) Atrial fibrillation Current Visit: Yes Status: Chronic Qualifiers: Atrial fibrillation type: chronic Qualified Code(s): I48.2 - Chronic atrial fibrillation (8) Type 2 diabetes mellitus Current Visit: Yes Status: Chronic Qualifiers: Diabetes mellitus complication status: with unspecified complications Diabetes mellitus alf insulin use: with alf use Qualified Code(s) : E11.8 - Type 2 diabetes mellitus with unspecified complications; 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 Juan Hernandez is a 71-year-old male past medical history significant for diabetes hypertension dyslipidemia hypothyroidism coronary artery disease is status post a stent and congestive heart failure. He is admitted with the severe dyspnea and orthopnea while he noted increased weight gain as well as leg edema and last few weeks. He is complaining of some epigastric discomfort and when he came in he had some chest pain which has resolved now and his breathing is much better after he was given IV Lasix. His BNP on admission was around thousand. Patient takes eliquis for cardiomyopathy perhaps. Echocardiogram done on May 05 showed EF of 30% with global hypokinesis. Cardiology is consulted. Patient has been aggressively diuresed with IV Lasix and Zaroxolyn. - 6200 mL net lost more than 5 kg.,potassium 3.1, supplement KCl 40 IV & 40 by mouth, mag is satisfactory.. Creatinine slightly higher repeat BMP . DC Zaroxolyn and change Lasix to 80 mg by mouth. Coughing. Chest x-ray shows asymmetric pleural effusion bilaterally with basal atelectasis. Considering he is developing cough though he is afebrile and without leukocytosis with a start him on IV Rocephin and Flagyl and give him a full 10 day course. He can be switched to oral antibiotics upon discharge. CBC CMP magnesium ordered. He can be discharged once his renal function started improving. - Constitutional Vitals: Temp Pulse Resp BP Pulse Ox 96.4 F L 73 18 150/77 98 05/11/17 06:42 05/11/17 06:42 05/11/17 06:42 05/11/17 06:42 05/11/17 06:42 General appearance: Present: A&O X 3, morbidly obese, no acute distress, answers questions appropriately - Head Head exam: Present: atraumatic, normocephalic - Eye Eye exam: Present: PERRL, conjuntiva pink, sclera anicteric Pupils: Present: PERRL - Neck Neck exam general surgery: Present: supple, trachea midline. Absent: lymphadenopathy - Respiratory Respiratory exam: Present: CTAB. Absent: accessory muscle use, rales, rhonchi, wheezes - Cardiovascular Cardiovascular exam: Present: RRR, +S1, +S2. Absent: diastolic murmur, gallop, rubs, systolic murmur - GI/Abdominal GI/Abdominal exam: Present: normal bowel sounds, soft, no peritoneal signs. Absent: distended, tenderness - Extremities Exam Extremities exam: Present: pedal edema, warm, radial pulses palpable and symmetrical. Absent: calf tenderness, cyanotic - Neurological Exam Neurological exam: Present: CN II-XII intact, oriented X3, no focal deficits. Absent: pronater drift, facial droop, speech deficit - Skin Skin exam: Present: dry, intact Internal Medicine: Result - Labs CBC & Chem 7: 05/11/17 04:03 05/11/17 04:03 Labs: Short CBC 05/11/17 Range/Units 04:03 WBC 4.2 L (4.3-11.1) K/mcL Hgb 12.5 L (12.9-16.9) g/dL Hct 38.9 (37.5-50.1) % Plt Count 185 (140-400) K/mcL Neutrophils # 1.8 (1.6-8.9) K/mcL BMP 05/11/17 04:03 Sodium 137 Potassium 3.1 L Chloride 96 L Carbon Dioxide 32 H BUN 29 H Creatinine 1.43 H Glucose 207 H Calcium 7.6 L Liver Function 05/11/17 Range/Units 04:03 Total Bilirubin 1.0 (0.2-1.2) mg/dL AST 13 (5-34) Units/L ALT 15 (0-55) Units/L Alkaline Phosphatase 67 (38-126) Units/L Albumin 3.2 L (3.5-5.0) g/dL - ABG Interpretation ABG results: PT/INR, D-dimer PT 14.7 Seconds (9.4-12.1) H 05/07/17 17:36 - Impressions Impressions Chest X-Ray 05/10/17 16:18 IMPRESSION: No significant change from prior exam. Persistent bibasilar atelectasis and bilateral pleural effusions, right greater than left. D/ / 05/10/2017 16:48:06 Rickie Young MD / [email or web address] Interpreting Provider: Rickie Young MD - VTE Documentation of Mechanical Device: Graduated compression elastic hosiery Consult Discharge Plan - Plan Referrals: Saloni Lombardo, BAND SAW OPERATOR [Primary Care Provider] - 05/14/17 2:00 pm (Please follow up as schedule...)
[2017-05-11] MEDS: APIXABAN 5 MG TABLET PO SCH ×2 (08:24→19:52)
[2017-05-11] MEDS: Gabapentin 400 MG CAPSULE PO SCH ×3 (08:24→19:51)
[2017-05-11] MEDS: Furosemide 40 MG TABLET PO SCH ×2 (08:25→16:02)
[2017-05-11] MEDS: Insulin LISPRO 300 UNITS/3 ML VIAL SQ SCH ×4 (08:36→21:26)
[2017-05-11 10:18] LABS: CK-BB (CK isoenzymes) 0 % (0-0); CK-MB (CK isoenzymes) 0 % (0-4); CK-MM (CK-isoenzymes) 100 % (96-100)
[2017-05-11] MEDS: Insulin DETEMIR 100 UNIT/ML X5UNITS SQ SCH ×2 (13:28→21:26)
[2017-05-11] MEDS: metroNIDAZOLE 500 MG TABLET PO SCH ×2 (14:16→19:51)
[2017-05-11] MEDS ORDERED: MetroNIDAZOLE 500 MG/100 ML 500 MG/100 ML BAG IVPB SCH (16:00)
[2017-05-11] MEDS: Benzonatate 100 MG CAPSULE PO PRN (19:52)
[2017-05-12 05:23] LABS: Basophils % 0.4 %; Eosinophils # 0.2 K/mcL (0.0-0.6); Eosinophils % 4.4 %; Hematocrit 37.6 % (37.5-50.1); Hemoglobin 12.6 g/dL (12.9-16.9); Immature Granulocytes % 0.2 % (0-4); Lymphocytes # 1.4 K/mcL (0.6-4.6); Lymphocytes % 30.3 %; Mean Corpuscular HGB Conc 33.5 g/dL (31.6-35.5); Mean Corpuscular Hemoglobin 27.2 pg (28.0-33.3); Mean Corpuscular Volume 81.2 fL (83.0-100.0); Mean Platelet Volume 10.8 fL (9.4-12.4); Monocytes # 0.7 K/mcL (0.0-1.3); Monocytes % 15.6 %; Neutrophils # 2.2 K/mcL (1.6-8.9); Platelet Count 179 K/mcL (140-400); Red Blood Count 4.63 M/mcL (4.19-5.50); Red Cell Distribution Width 14.3 % (11.5-14.5); Segmented Neutrophils % 49.1 %
[2017-05-12 06:02] LABS: Alanine Aminotransferase 14 Units/L (0-55); Albumin 3.3 g/dL (3.5-5.0); Albumin/Globulin Ratio 0.9 (1.1-2.2); Alkaline Phosphatase 69 Units/L (38-126); Aspartate Amino Transferase 16 Units/L (5-34); BUN/Creatinine Ratio 28 (6-26); Bilirubin,Total 0.8 mg/dL (0.2-1.2); Blood Urea Nitrogen 32 mg/dL (8-26); Calcium 7.7 mg/dL (8.6-10.8); Carbon Dioxide 31 mEq/L (19-29); Chloride 96 mEq/L (98-109); Globulin 3.7 g/dL (2.4-3.5); Glucose 169 mg/dL (70-99); Osmolality,Calculated 299 (280-300); Potassium 2.7 mEq/L (3.5-4.5); Sodium 139 mEq/L (136-145); eGFR For African Americans > 60 (> 60); eGFR For Non-African Americans > 60 (> 60)
[2017-05-12 08:09] LABS: CK Total (Ck Isoenzymes) 106 U/L (20-200)
[2017-05-12] MEDS: Furosemide 40 MG TABLET PO SCH (08:15)
[2017-05-12] MEDS: Gabapentin 400 MG CAPSULE PO SCH (08:15)
[2017-05-12] MEDS: Insulin LISPRO 300 UNITS/3 ML VIAL SQ SCH ×2 (08:17→12:15)
[2017-05-12] MEDS: metroNIDAZOLE 500 MG TABLET PO SCH (08:17)
[2017-05-12] MEDS: APIXABAN 5 MG TABLET PO SCH (08:17)
[2017-05-12] MEDS: Insulin DETEMIR 100 UNIT/ML X5UNITS SQ SCH (08:20)
[2017-05-12] MEDS ORDERED: Cefdinir 300 MG CAPSULE PO SCH (10:45)
--- NOTE | 2017-05-12 10:48 | Discharge Summary ---
Date of Encounter: 05/12/17 Time of Encounter: 10:46 - Discharge Diagnosis (1) Acute systolic CHF (congestive heart failure) Priority: Primary Status: Acute (2) Pleural effusion due to CHF (congestive heart failure) Priority: Primary Status: Chronic (3) Ischemic cardiomyopathy Priority: Secondary Status: Acute (4) Coronary artery disease Priority: Secondary Status: Chronic Qualifiers: Coronary Disease-Associated Artery/Lesion type: [place] artery Three Affiliated vs. transplanted heart: [place] heart Associated angina: without angina Qualified Code(s): I25.10 - Atherosclerotic heart disease of [place] coronary artery without angina pectoris (5) JESSICA (acute kidney injury) Priority: Secondary Status: Acute (6) Hypokalemia due to loss of potassium Priority: Secondary Status: Acute (7) Obstructive sleep apnea of adult Priority: Secondary Status: Chronic (8) Morbid obesity with BMI of 45.0-49.9, adult Priority: Secondary Status: Chronic (9) CKD (chronic kidney disease) stage 3, GFR 30-59 ml/min Priority: Secondary Status: Chronic (10) Atrial fib/flutter, transient Priority: Secondary Status: Acute (11) Pneumonia Priority: Secondary Status: Acute Qualifiers: Pneumonia type: due to unspecified organism Laterality: right Lung location: lower lobe of lung Qualified Code(s): J18.1 - Lobar pneumonia, unspecified organism - Discharge Medications Prescriptions: Cefdinir [Omnicef] 300 mg PO BID #12 capsule Furosemide [Lasix] 60 mg PO BID #60 tablet Potassium Chloride 20 meq PO DAILY #30 tab.er.prt Home Medications: Atorvastatin [Lipitor] 40 mg PO HS #30 tablet 04/03/15 [Rx] metFORMIN [Glucophage] 1,000 mg PO BID 07/07/16 [History] Apixaban [Eliquis] 2.5 mg PO BID #30 tablet 07/14/16 [Rx] Montelukast [Singulair] 10 mg PO HS #30 tablet 07/14/16 [Rx] DiphenhydraMINE [Benadryl] 25 mg PO HS PRN 02/18/17 [History] Insulin DETEMIR [Levemir] 60 unit SQ QAM 02/18/17 [History] Docusate [Colace] 100 mg PO DAILY PRN 02/19/17 [History] Insulin LISPRO [HumaLOG] 0 units SQ TIDWM 02/19/17 [History] Carvedilol [Coreg] 6.25 mg PO BIDWM #60 tab 02/25/17 [Rx] Isosorbide MONOnitrate (24 HR) [Imdur] 60 mg PO DAILY #30 02/25/17 [Rx] Gabapentin [Neurontin] 1,200 mg PO TID 05/07/17 [History] Levothyroxine Sodium [Synthroid] 200 mcg PO QAM 05/07/17 [History] Losartan [Cozaar] 25 mg PO DAILY 05/07/17 [History] Cefdinir [Omnicef] 300 mg PO BID #12 capsule 05/12/17 [Rx] Furosemide [Lasix] 60 mg PO BID #60 tablet 05/12/17 [Rx] Potassium Chloride 20 meq PO DAILY #30 tab.er.prt 05/12/17 [Rx] Allergies/Adverse Reactions: 3 Allergy/AdvReac Type Severity Reaction Status Date / Time Penicillins Allergy Hives Verified 03/23/15 09:54 ERNST Inhibitors AdvReac Cough Verified 03/23/15 09:53 Date of admission: 05/07/17 21:59 Primary care physician: Saloni Lombardo CNP - Patient Status Disposition: Home Health Service Condition: Fair Overall status at discharge: patient is progressing back to baseline - Discharge Instructions Follow Up With: Saloni Lombardo CNP [Primary Care Provider] - 05/14/17 2:00 pm (Please follow up as schedule...) Additional Instructions: Follow-up with primary care physician within the next 7 days. Decrease fluid intake, continue Lasix 60 mg twice a day. Potassium supplements. Follow up with cardiology within the next 2 weeks. Complete 6 more days of Cefdinir - Diet and Activity Activity: increase activity as tolerated Diet: diabetic diet Hospital course: Mr. Stout is a 71 year old male with a past medical history of arthritis, cancer , kidney cardiomyopathy, systolic CHF ejection fraction of 35%, now 30%, coronary artery disease, diabetes insulin-dependent, GERD, hypertension, and thyroid disease who presented to the ER with chief complaint of severe shortness of breath that had been worsening over the last several days. Patient presented with severe dyspnea and leaning forward in the tripod position , unable to sit up or leaning back. Patient also had swelling in his lower extremities, +2 pitting edema. Upon arrival to the hospital, patient was placed on BiPAP. Chest x-ray was performed, showing an increased moderate right and a small left layering pleural effusion with bibasilar atelectasis. Chest x-ray also showed cardiomegaly with pulmonary vascular congestion suggesting acute congestive heart failure. Patient did not have an elevated troponin, and there were no signs of ischemia found on EKG. BNP was 1005. He follows Dr. Son for his congestive heart failure. He stated that over the last 2 months he has been gaining weight, which he estimated to be approximately 20 pounds. Patient was placed on Lasix IV up to 80 mg twice a day with the use also off Zaroxolyn. Also he was started on Rocephin for possible pneumonia and Flagyl which was discontinued. The patient feels better still coughing up whitish phlegm. Will be discharged on 60 mg of Lasix twice a day with a fluid restriction. Potassium was 2.7 but will be repleted. The patient needs to follow up with cardiology to consider an AICD in the near future - Time Spent with Patient Total time spent providing and/or coordinating discharge services: Greater than 30 minutes (40 min) - Constitutional Vitals: Temp Pulse Resp BP Pulse Ox 98.5 F 86 17 170/90 93 05/12/17 07:33 05/12/17 07:33 05/12/17 07:33 05/12/17 07:33 05/12/17 08:26 General appearance: Present: A&O X 3, morbidly obese, no acute distress, answers questions appropriately - Head Head exam: Present: atraumatic, normocephalic - Eye Eye exam: Present: PERRL, conjuntiva pink, sclera anicteric Pupils: Present: PERRL - Neck Neck exam general surgery: Present: supple, trachea midline. Absent: lymphadenopathy - Respiratory Respiratory exam: Present: decreased breath sounds (Diminiched breath sounds on the right base. ), CTAB. Absent: accessory muscle use, rales, rhonchi, wheezes - Cardiovascular Cardiovascular exam: Present: RRR, +S1, +S2. Absent: diastolic murmur, gallop, rubs, systolic murmur - GI/Abdominal GI/Abdominal exam: Present: normal bowel sounds, soft, no peritoneal signs. Absent: distended, tenderness - Extremities Exam Extremities exam: Present: pedal edema (+1 pitting edema in both lower extremities, improved), warm, radial pulses palpable and symmetrical. Absent: calf tenderness, cyanotic - Neurological Exam Neurological exam: Present: CN II-XII intact, oriented X3, no focal deficits. Absent: pronater drift, facial droop, speech deficit - Skin Skin exam: Present: dry, intact - VTE Documentation of Mechanical Device: Graduated compression elastic hosiery
--- NOTE | 2017-05-12 10:59 | Physician Discharge Referral ---
Home Health/Hosp Referral Info Transfer to: Home Health Provider in Charge Post Discharge: PCP - Diagnosis (1) Acute systolic CHF (congestive heart failure) Status: Acute (2) Pleural effusion due to CHF (congestive heart failure) Status: Chronic (3) Ischemic cardiomyopathy Status: Acute (4) Coronary artery disease Status: Chronic (5) JESSICA (acute kidney injury) Status: Acute (6) Hypokalemia due to loss of potassium Status: Acute (7) Obstructive sleep apnea of adult Status: Chronic (8) Morbid obesity with BMI of 45.0-49.9, adult Status: Chronic (9) CKD (chronic kidney disease) stage 3, GFR 30-59 ml/min Status: Chronic (10) Atrial fib/flutter, transient Status: Acute (11) Pneumonia Status: Acute - Respiratory Orders Smoking Cessation: Smoking cessation has been advised. For more information, call the [employer] Quit Line at 2-372-WQOS-NOW. - Diet/Nutrition Diet/Nutrition Orders: No Added Salt (LATISHA) - Services Needed Following services are medically necessary services: Physical Therapy Home Care Orders: Follow-up with primary care physician within the next 7 days. Decrease fluid intake, continue Lasix 60 mg twice a day. Potassium supplements. Follow up with cardiology within the next 2 weeks. Complete 6 more days of Cefdinir - Transfer Medications Prescriptions: Cefdinir [Omnicef] 300 mg PO BID #12 capsule Furosemide [Lasix] 60 mg PO BID #60 tablet Potassium Chloride 20 meq PO DAILY #30 tab.er.prt Home Medications: Atorvastatin [Lipitor] 40 mg PO HS #30 tablet 04/03/15 [Rx] metFORMIN [Glucophage] 1,000 mg PO BID 07/07/16 [History] Apixaban [Eliquis] 2.5 mg PO BID #30 tablet 07/14/16 [Rx] Montelukast [Singulair] 10 mg PO HS #30 tablet 07/14/16 [Rx] DiphenhydraMINE [Benadryl] 25 mg PO HS PRN 02/18/17 [History] Insulin DETEMIR [Levemir] 60 unit SQ QAM 02/18/17 [History] Docusate [Colace] 100 mg PO DAILY PRN 02/19/17 [History] Insulin LISPRO [HumaLOG] 0 units SQ TIDWM 07/13/17 [History] Carvedilol [Coreg] 6.25 mg PO BIDWM #60 tab 02/25/17 [Rx] Isosorbide MONOnitrate (24 HR) [Imdur] 60 mg PO DAILY #30 02/25/17 [Rx] Gabapentin [Neurontin] 1,200 mg PO TID 05/07/17 [History] Levothyroxine Sodium [Synthroid] 200 mcg PO QAM 05/07/17 [History] Losartan [Cozaar] 25 mg PO DAILY 05/07/17 [History] Cefdinir [Omnicef] 300 mg PO BID #12 capsule 05/12/17 [Rx] Furosemide [Lasix] 60 mg PO BID #60 tablet 05/12/17 [Rx] Potassium Chloride 20 meq PO DAILY #30 tab.er.prt 05/12/17 [Rx] Allergies/Adverse Reactions: 3 Allergy/AdvReac Type Severity Reaction Status Date / Time Penicillins Allergy Hives Verified 03/23/15 09:54 ERNST Inhibitors AdvReac Cough Verified 03/23/15 09:53 Certification: Further, I certify that my clinical findings support that this patient is homebound (i.e. absences from home require considerable and taxing effort and are for medical reasons or mosque services or infrequently or short duration when for other reasons) because: Homebound Reason: Patient requires assistance of a person or device to safely leave home Attestation: My signature below is to certify that this patient is under my care and that I, or nurse practitioner, or a physician's medical assistant prn working with me, has a face-to -face encounter with this patient.
[2017-05-12 11:29] VITALS: BP 159/83
[2017-05-12] MEDS ORDERED: Insulin DETEMIR 100 UNIT/ML X5UNITS SQ SCH (21:00)
== END 2017-05-12 15:19 | disposition home health service (06) | DRG 291 ==
LOC: 2ANU 16:56 → EMEROO 16:56 → 2ANU 19:02 → SUATTDRO 21:59
PROVIDERS: ADMIT Hospitalist; ATTEND Internal Medicine

== ENCOUNTER 2018-12-24 15:21 | Inpatient (IN) ==
--- NOTE | 2018-12-24 16:04 | Emergency Department Note ---
Disposition Clinical Impression: Hyperkalemia, JESSICA (acute kidney injury) Disposition: Admitted As Inpatient Condition: Fair Time of Disposition: 23:46 Weakness HPI - General Chief complaint: ED Weakness Stated complaint: weakness Time Seen by Provider: 12/24/18 16:03 Source: patient Limitations: no limitations Nursing Notes Reviewed: Yes Vital Signs Reviewed: Yes - History of Present Illness HPI Narrative: 73-year-old male past medical history of uncontrolled diabetes and chronic kidney disease presenting for a 2 day history of weakness, lightheadedness and dizziness. Patient states last evening he became lightheaded and dizzy and had a presyncopal episode. Patient states that he had crouched down to prevent himself from falling but was able to catch himself on a table. Patient denies hitting his head or any other trauma during this event. Patient states on coming to the hospital today for outpatient kidney ultrasound that they stopped Christina's he go to the bathroom upon exiting the vehicle he became very dizzy and felt like he was going pass out and had to kneel down to stop from falling. Patient denies losing consciousness during these events states that he feels generally weak and dizzy denies any other symptoms at this time. Pain Scale: 2 - Related Data Home Medications Medication Instructions Recorded Confirmed Levothyroxine Sodium [Synthroid] 200 mcg PO QAM 05/07/17 12/24/18 Aspirin [Lo-Dose Aspirin EC] 81 mg PO DAILY 12/24/18 12/24/18 Atorvastatin [Lipitor] 40 mg PO HS 12/24/18 12/24/18 Carvedilol 12.5 mg PO BID 12/24/18 12/24/18 Cholecalciferol (D-3) [Vitamin D] 1,000 unit PO DAILY 12/24/18 12/24/18 Gabapentin 800 mg PO TID 12/24/18 12/24/18 Insulin Glargine,Hum.rec.anlog 70 units SQ HS 12/24/18 12/24/18 [Lantus Solostar] Sacubitril/Valsartan 97/103 mg 1 tab PO BID 12/24/18 12/24/18 [Entresto 97 mg-103 mg Tablet] Spironolactone 25 mg PO DAILY 12/24/18 12/24/18 Torsemide 50 mg PO BID 12/24/18 12/24/18 Previous Rx's Medication Instructions Recorded Montelukast [Singulair] 10 mg PO HS #30 tablet 07/14/16 Allergies Allergy/AdvReac Type Severity Reaction Status Date / Time Penicillins Allergy Hives Verified 03/23/15 09:54 ERNST Inhibitors AdvReac Cough Verified 03/23/15 09:53 Review of Systems: Constitutional: Denies: fever, chills Cardiovascular: Denies: chest pain Respiratory: Denies: dyspnea Gastrointestinal: Denies: abdominal pain, nausea, vomiting, diarrhea, constip ation, hematemesis, melena, hematochezia Genitourinary: Denies: hematuria Musculoskeletal: Denies: back pain, neck pain Neurological: Admits to weakness, orthostatic intolerance Denies: headache, numbness, paresthesias Endocrine: Denies: fatigue All systems ED: reviewed and negative except as stated. Review of Systems: As Per HPI Past Medical History - Past Medical History Medical history: Reports: arthritis, cancer, cardiomyopathy, CHF, coronary artery disease, diabetes, GERD, hypertension, thyroid disease Surgical history: Reports: angioplasty/stent, cancer surgery, herniorrhaphy, orthopedic, other, thyroidectomy, other Psychiatric history: Reports: no psych history - Social History Smoking Status: Never smoker Smokeless Tobacco Status: No Alcohol use: Reports: none Drug use: Reports: none Physical Exam Constitutional: No acute distress, [id number], engaged to conversation, speech is fluid, answers questions appropriately Neuro: GCS 15, no overt focal neurological deficits Head: Atraumatic, normocephalic Eyes: Pupils equal, round and reactive to light, no scleral icterus, no conjunctival injection Neck: Trachea midline without deviation. Anterior neck is supple without swelling. *Chest: Symmetric chest wall rise *Heart: Cardiac rhythm and rate are regular with S1 and S2 , no S3 or S4 appreciated, no murmurs, gallops, rubs, or clicks. *Lungs: Lungs are clear to auscultation bilaterally, without accessory muscle use or prolonged expiratory phase. No wheezes, rhonchi or stridor appreciated. Abdomen: Abdomen is flat, soft to palpation, normal bowel sounds. No abdominal bruit auscultated. Non-distended, non-rigid, no organomegaly, no ascites appreciated. No pulsatile mass, no tenderness or guarding to palpation in all four quadrants, no rebound Extremities: Normal capillary refill without evidence of pedal edema, joint swelling or erythema. Pulses/motor/sensory intact in all 4 extremities. Psychiatric exam: Patient displays a normal affect and mood for the environment. No overt signs of hallucination. Integumentary: warm, dry, intact, normal color. No rash, cyanosis, diaphoresis, erythema, or pallor - General Limitations: no limitations General appearance: alert, in no apparent distress Course Course Narrative: Patient on a have hyperkalemia as well as acute kidney injury Patient started on insulin/dextrose as well as albuterol. Calcium gluconate and sodium bicarbonate Patient will be admitted hospitalist medicine service for further evaluation, management and treatment Vital Signs Temperature 97.9 F 12/24/18 15:34 Pulse Rate 74 12/24/18 15:34 Respiratory Rate 16 12/24/18 15:34 Blood Pressure 104/72 12/24/18 15:34 O2 Sat by Pulse Oximetry 96 12/24/18 15:34 Temperature 97.9 F 12/24/18 15:34 Pulse Rate 85 12/24/18 22:15 Respiratory Rate 20 12/24/18 22:15 Blood Pressure 155/91 12/24/18 22:15 O2 Sat by Pulse Oximetry 99 12/24/18 22:15 Oxygen Delivery Oxygen Delivery Nasal Cannula Weakness - Lab Data Result diagrams: 12/24/18 16:28 12/24/18 20:17 Lab Results 12/24/18 12/24/18 12/24/18 Range/Units 16:26 16:28 16:28 WBC 9.5 (4.3-11.1) K/mcL RBC 3.48 L (4.19-5.50) M/mcL Hgb 10.7 L (12.9-16.9) g/dL Hct 31.7 L (37.5-50.1) % MCV 91.1 (83.0-100.0) fL MCH 30.7 (28.0-33.3) pg MCHC 33.8 (31.6-35.5) g/dL RDW 12.8 (11.5-14.5) % Plt Count 217 (140-400) K/mcL MPV 10.8 (9.4-12.4) fL Immature Gran % 0.5 (0-4) % Seg Neutrophils % 67.4 % Lymphocytes % 21.6 % Monocytes % 8.7 % Eosinophils % 1.3 % Basophils % 0.5 % Neutrophils # 6.4 (1.6-8.9) K/mcL Lymphocytes # 2.1 (0.6-4.6) K/mcL Monocytes # 0.8 (0.0-1.3) K/mcL Eosinophils # 0.1 (0.0-0.6) K/mcL Basophils # 0.1 (0.0-0.2) K/mcL Sodium 129 L (136-145) mEq/L Potassium 7.5 H* (3.5-5.1) mEq/L Chloride 103 (98-107) mEq/L Carbon Dioxide 19 L (23-29) mEq/L BUN 67 H (8-23) mg/dL Creatinine 2.87 H (0.70-1.30) mg/dL Est GFR ( Amer) 26 L (> 60) Est GFR (Non-Af Amer) 22 L (> 60) BUN/Creatinine Ratio 23 (6-26) Glucose 193 H (70-105) mg/dL POC Glucose (70-99) mg/dL Calculated Osmolality 293 (280-300) Calcium 7.1 L (8.6-10.3) mg/dL Troponin I < 0.03 (< 0.04) ng/mL B-Natriuretic Peptide 60 (Less than 100) pg/mL Urine Color (Yellow) Urine Clarity (Clear) Urine pH (5.0-8.0) pH Units Ur Specific [place] (1.010-1.025) Urine Protein (Neg-Trace) mg/dL Urine Glucose (UA) (Normal) mg/dL Urine Ketones (Negative) mg/dL Urine Blood (Negative) Urine Nitrite (Negative) Urine Bilirubin (Negative) Urine Urobilinogen (Normal) mg/dL Ur Leukocyte Esterase (Negative) Ur Culture Indicated? (NO) 12/24/18 12/24/18 12/24/18 Range/Units 18:26 20:17 20:20 WBC (4.3-11.1) K/mcL RBC (4.19-5.50) M/mcL Hgb (12.9-16.9) g/dL Hct (37.5-50.1) % MCV (83.0-100.0) fL MCH (28.0-33.3) pg MCHC (31.6-35.5) g/dL RDW (11.5-14.5) % Plt Count (140-400) K/mcL MPV (9.4-12.4) fL Immature Gran % (0-4) % Seg Neutrophils % % Lymphocytes % % Monocytes % % Eosinophils % % Basophils % % Neutrophils # (1.6-8.9) K/mcL Lymphocytes # (0.6-4.6) K/mcL Monocytes # (0.0-1.3) K/mcL Eosinophils # (0.0-0.6) K/mcL Basophils # (0.0-0.2) K/mcL Sodium 133 L (136-145) mEq/L Potassium 6.5 H* (3.5-5.1) mEq/L Chloride 104 (98-107) mEq/L Carbon Dioxide 21 L (23-29) mEq/L BUN 65 H (8-23) mg/dL Creatinine 2.63 H (0.70-1.30) mg/dL Est GFR ( Amer) 29 L (> 60) Est GFR (Non-Af Amer) 24 L (> 60) BUN/Creatinine Ratio 25 (6-26) Glucose 127 H (70-105) mg/dL POC Glucose 195 H (70-99) mg/dL Calculated Osmolality 296 (280-300) Calcium 7.0 L (8.6-10.3) mg/dL Troponin I (< 0.04) ng/mL B-Natriuretic Peptide (Less than 100) pg/mL Urine Color Yellow (Yellow) Urine Clarity Clear (Clear) Urine pH 6.0 (5.0-8.0) pH Units Ur Specific [place] 1.009 L (1.010-1.025) Urine Protein Negative (Neg-Trace) mg/dL Urine Glucose (UA) Normal (Normal) mg/dL Urine Ketones Negative (Negative) mg/dL Urine Blood Negative (Negative) Urine Nitrite Negative (Negative) Urine Bilirubin Negative (Negative) Urine Urobilinogen Normal (Normal) mg/dL Ur Leukocyte Esterase Negative (Negative) Ur Culture Indicated? NO (NO)
[2018-12-24 16:52] LABS: Basophils # 0.1 K/mcL (0.0-0.2); Basophils % 0.5 %; Eosinophils # 0.1 K/mcL (0.0-0.6); Eosinophils % 1.3 %; Hematocrit 31.7 % (37.5-50.1); Hemoglobin 10.7 g/dL (12.9-16.9); Immature Granulocytes % 0.5 % (0-4); Lymphocytes # 2.1 K/mcL (0.6-4.6); Lymphocytes % 21.6 %; Mean Corpuscular HGB Conc 33.8 g/dL (31.6-35.5); Mean Corpuscular Hemoglobin 30.7 pg (28.0-33.3); Mean Corpuscular Volume 91.1 fL (83.0-100.0); Mean Platelet Volume 10.8 fL (9.4-12.4); Monocytes # 0.8 K/mcL (0.0-1.3); Monocytes % 8.7 %; Neutrophils # 6.4 K/mcL (1.6-8.9); Platelet Count 217 K/mcL (140-400); Red Blood Count 3.48 M/mcL (4.19-5.50); Red Cell Distribution Width 12.8 % (11.5-14.5); Segmented Neutrophils % 67.4 %
[2018-12-24 17:23] LABS: BUN/Creatinine Ratio 23 (6-26); Blood Urea Nitrogen 67 mg/dL (8-23); Calcium 7.1 mg/dL (8.6-10.3); Carbon Dioxide 19 mEq/L (23-29); Chloride 103 mEq/L (98-107); Glucose 193 mg/dL (70-105); Osmolality,Calculated 293 (280-300); Potassium 7.5 mEq/L (3.5-5.1); Sodium 129 mEq/L (136-145); Troponin I < 0.03 ng/mL (< 0.04); eGFR For Non-African Americans 22 (> 60)
[2018-12-24] MEDS ORDERED: Albuterol 2.5 MG/3 ML NEBULIZER IH STA ×3 (17:28→17:59)
[2018-12-24] MEDS ORDERED: Insulin Human Regular 10 UNIT in 0.9 % Sodium Chloride 10 ML IV ONE (17:37)
[2018-12-24] MEDS ORDERED: Sodium Bicarbonate 50 MEQ/50 ML VIAL IVP ONE (17:38)
[2018-12-24] MEDS ORDERED: *HR* Dextrose 25% in Water (Syg) 10 ML SYRINGE IVP ONE (17:38)
--- NOTE | 2018-12-24 18:02 | Emergency Department Note ---
Disposition Clinical Impression: Hyperkalemia, JESSICA (acute kidney injury) Disposition: Admitted As Inpatient Condition: Fair Forms: ED Satisfaction Letter General Adult HPI - General Chief complaint: ED Weakness Stated complaint: weakness Time Seen by Provider: 12/24/18 16:03 Source: patient Limitations: no limitations - History of Present Illness Pain Scale: 0 - Related Data Home Medications Medication Instructions Recorded Confirmed metFORMIN [Glucophage] 1,000 mg PO BID 07/07/16 07/17/17 Insulin DETEMIR [Levemir] 60 unit SQ QAM 02/18/17 07/17/17 Insulin LISPRO [HumaLOG] 4 units SQ TIDWM 02/19/17 07/17/17 Gabapentin [Neurontin] 1,200 mg PO TID 05/07/17 07/17/17 Levothyroxine Sodium [Synthroid] 200 mcg PO QAM 05/07/17 07/17/17 Carvedilol [Coreg] 0.5 tab PO BIDWM 07/17/17 07/17/17 Clopidogrel [Plavix] 75 mg PO DAILY 07/17/17 07/17/17 Furosemide [Lasix] 80 mg PO DAILY PRN 07/17/17 07/17/17 Previous Rx's Medication Instructions Recorded Atorvastatin [Lipitor] 40 mg PO HS #30 tablet 04/03/15 Montelukast [Singulair] 10 mg PO HS #30 tablet 07/14/16 Allergies Allergy/AdvReac Type Severity Reaction Status Date / Time Penicillins Allergy Hives Verified 03/23/15 09:54 ERNST Inhibitors AdvReac Cough Verified 03/23/15 09:53 Past Medical History - Past Medical History Medical history: Reports: arthritis, cancer, cardiomyopathy, CHF, coronary artery disease, diabetes, GERD, hypertension, thyroid disease Surgical history: Reports: angioplasty/stent, cancer surgery, herniorrhaphy, orthopedic, other, thyroidectomy, other Psychiatric history: Reports: no psych history - Social History Smoking Status: Never smoker Smokeless Tobacco Status: No Alcohol use: Reports: none Drug use: Reports: none Physical Exam - General Limitations: no limitations General appearance: alert, in no apparent distress Course Vital Signs Temperature 97.9 F 12/24/18 15:34 Pulse Rate 74 12/24/18 15:34 Respiratory Rate 16 12/24/18 15:34 Blood Pressure 104/72 12/24/18 15:34 O2 Sat by Pulse Oximetry 96 12/24/18 15:34 Temperature 97.9 F 12/24/18 15:34 Pulse Rate 76 12/24/18 17:34 Respiratory Rate 24 12/24/18 17:53 Blood Pressure 129/63 12/24/18 17:34 O2 Sat by Pulse Oximetry 100 12/24/18 17:53 Oxygen Delivery Oxygen Delivery Room Air Medical Decision Making - Lab Data Result diagrams: 12/24/18 16:28 12/24/18 16:26 Lab Results 12/24/18 12/24/18 12/24/18 Range/Units 16:26 16:28 16:28 WBC 9.5 (4.3-11.1) K/mcL RBC 3.48 L (4.19-5.50) M/mcL Hgb 10.7 L (12.9-16.9) g/dL Hct 31.7 L (37.5-50.1) % MCV 91.1 (83.0-100.0) fL MCH 30.7 (28.0-33.3) pg MCHC 33.8 (31.6-35.5) g/dL RDW 12.8 (11.5-14.5) % Plt Count 217 (140-400) K/mcL MPV 10.8 (9.4-12.4) fL Immature Gran % 0.5 (0-4) % Seg Neutrophils % 67.4 % Lymphocytes % 21.6 % Monocytes % 8.7 % Eosinophils % 1.3 % Basophils % 0.5 % Neutrophils # 6.4 (1.6-8.9) K/mcL Lymphocytes # 2.1 (0.6-4.6) K/mcL Monocytes # 0.8 (0.0-1.3) K/mcL Eosinophils # 0.1 (0.0-0.6) K/mcL Basophils # 0.1 (0.0-0.2) K/mcL Sodium 129 L (136-145) mEq/L Potassium 7.5 H* (3.5-5.1) mEq/L Chloride 103 (98-107) mEq/L Carbon Dioxide 19 L (23-29) mEq/L BUN 67 H (8-23) mg/dL Creatinine 2.87 H (0.70-1.30) mg/dL Est GFR ( Amer) 26 L (> 60) Est GFR (Non-Af Amer) 22 L (> 60) BUN/Creatinine Ratio 23 (6-26) Glucose 193 H (70-105) mg/dL Calculated Osmolality 293 (280-300) Calcium 7.1 L (8.6-10.3) mg/dL Troponin I < 0.03 (< 0.04) ng/mL B-Natriuretic Peptide 60 (Less than 100) pg/mL Attestation Statement - Attestation Attestation: I examined this patient and my medical decision-making was reviewed with the Resident Physician. I agree with the documented findings, disposition and treatment plan as described except to the extent set forth below. JESSICA with K+>7. Albuterol, Bicab, Dextrose/Insulin, CM ordered. EKG shows QT prolongation, no ST/TWCs. Nephro/Hospitalist paged. Pt clinically stable at the time of my eval.
[2018-12-24] MEDS ORDERED: 0.9 % Sodium Chloride 1,000 ML IVC ONE (18:06)
[2018-12-24 20:58] LABS: Bilirubin,Urine Negative (Negative); Blood,Urine Negative (Negative); Clarity,Urine Clear (Clear); Color,Urine Yellow (Yellow); Glucose,Urine (UA) Normal (Normal); Ketones,Urine Negative (Negative); Leukocyte Esterase,Urine Negative (Negative); Nitrite,Urine Negative (Negative); Protein,Urine Negative (Neg-Trace); Specific Gravity,Urine 1.009 (1.010-1.025); Urobilinogen,Urine Normal (Normal)
[2018-12-24 21:10] LABS: Potassium 6.5 mEq/L (3.5-5.1)
[2018-12-24] MEDS ORDERED: Naloxone 0.4 MG/ML INJ IVP PRN (22:32)
[2018-12-24] MEDS ORDERED: *HR* Dextrose 50 % in Water (Syg) 50 ML SYRINGE IVP PRN (23:27)
[2018-12-24] MEDS ORDERED: D5% in Water 1,000 ML IVC PRN (23:27)
[2018-12-24] MEDS ORDERED: Dextrose Gel 15 GM/37.5 ML TUBE PO PRN ×2 (23:27)
--- NOTE | 2018-12-24 23:51 | Internal Med History&Physical ---
<Sunshine Barlow E - Last Filed: 12/24/18 23:45> Date of Encounter: 12/24/18 Time of Encounter: 09:15 Internal Medicine - H&P: HPI Chief complaint: Weakness Admitted From: Home Plans for Post Hospital Care: Home History of present illness: Mr. Stout is a 73 year old male with history of diabetes on insulin, CHF, hypertension, thyroid cancer post thyroidectomy removal on Synthroid, CKD. Patient presented to the ED after 2 episodes of leg weakness which caused him to almost fall, he caught himself and did not fully the ground. He is also felt fatigued and dizzy over the last couple days. He has had severe diarrhea that is watery in consistency for the last 3 days. He denies any antibiotic use within the last month or so and denies any abdominal pain. He was on his way to the hospital to have an outpatient renal ultrasound that was ordered by Dr. Grossman to check for any outside source of his CKD when he stopped at [employer] to use the restroom and his legs felt like they could not hold him. He decided to come to the ED for further workup. In the ED his potassium was found to be 7.5 and he was given 1 L of fluid, sodium bicarbonate, insulin, dextrose, calcium gluconate, and Kayexalate. His potassium repeated was 6.5. EKG showed a left bundle branch block which was not concerning for his hyperkalemia. Patient's creatinine was noted to be 2.87, GFR of 22, BUN is 67, glucose of 193, negative troponins, BNP of 60, sodium of 129. Vital signs were stable with temperature 97.9, heart rate of 82, respirations of 18, blood pressure 145/79, satting 97% on 2 L by nasal cannula. Patient denied any chest pain, shortness of breath, abdominal pain, swelling, nausea, vomiting, changes in vision. Chest x-ray was positive for small left pleural effusion and pulmonary vascular congestion. Patient was admitted for hyperkalemia, AKA eye on CK 80, weakness. Social history: Patient denies tobacco use, alcohol, illicit drugs Family history: Father: Heart disease, mother: No known history Patient's home medications include Singulair, Synthroid, gabapentin, Lipitor, carvedilol, insulin glargine, sacubitril/valsartan, aspirin, vitamin D, torsemide, spironolactone. Past Med Surg Social Fam HX - Past Medical History Medical history: arthritis, cancer, cardiomyopathy, CHF, coronary artery disease, diabetes, GERD, hypertension, thyroid disease Additional medical history: Thyroid cancer, blood clot behind right eye. Psychiatric history: no psych history - Past Surgical History Surgical History: angioplasty/stent, cancer surgery, herniorrhaphy, orthopedic, other, thyroidectomy, other Additional surgical history: hernia repair, cardiac stents - Social History Smoking Status: Never smoker Smokeless Tobacco Status: No Alcohol use: none Drug use: none - Family History Mother Living Status: Still Living Father Living Status: Hx Family Cardiac Disorders: Yes Hx Family Cancer: No Hx Family GI Disorders: No Internal Medicine - H&P: Meds Montelukast [Singulair] 10 mg PO HS #30 tablet 07/14/16 [Rx] Levothyroxine Sodium [Synthroid] 200 mcg PO QAM 05/07/17 [History] Aspirin [Lo-Dose Aspirin EC] 81 mg PO DAILY 12/24/18 [History] Atorvastatin [Lipitor] 40 mg PO HS 12/24/18 [History] Carvedilol 12.5 mg PO BID 12/24/18 [History] Cholecalciferol (D-3) [Vitamin D] 1,000 unit PO DAILY 12/24/18 [History] Gabapentin 800 mg PO TID 12/24/18 [History] Insulin Glargine,Hum.rec.anlog [Lantus Solostar] 70 units SQ HS 12/24/18 [History] Sacubitril/Valsartan 97/103 mg [Entresto 97 mg-103 mg Tablet] 1 tab PO BID 12/24/18 [History] Spironolactone 25 mg PO DAILY 12/24/18 [History] Torsemide 50 mg PO BID 12/24/18 [History] Allergy/AdvReac Type Severity Reaction Status Date / Time Penicillins Allergy Hives Verified 03/23/15 09:54 ERNST Inhibitors AdvReac Cough Verified 03/23/15 09:53 All Systems PM: A 10-system review of systems was performed and is negative for pertinent findings except as documented above in the HPI. - Constitutional Constitutional: fatigue, weakness, no anorexia - EENT Eyes: no change in vision Ears: no decreased hearing Nose, mouth and throat: no nasal congestion, no nasal discharge, no sinus pressure, no sore throat - Cardiovascular Cardiovascular ROS IM: no chest pain, no dyspnea on exertion, no irregular heart rhythm, no palpitations - Respiratory Respiratory: no cough, no dyspnea, no chest congestion - Gastrointestinal Gastrointestinal: diarrhea (Copious watery diarrhea for the last 3 days), no abdominal pain, no nausea, no vomiting - Genitourinary Genitourinary ROS male: no urinary frequency, no urinary hesitancy, no urinary urgency - Musculoskeletal Musculoskeletal ROS IM: muscle weakness, no arthralgias, no back pain - Integumentary Integumentary IM: no new lesions, no pruritus, no rash - Neurological Neurological ROS: weakness - Constitutional Vitals: Temp Pulse Resp BP Pulse Ox 97.9 F 85 20 155/91 99 12/24/18 15:34 12/24/18 22:15 12/24/18 22:15 12/24/18 22:15 12/24/18 22:15 Exam: General: A 3, mild distress, shaking, answers questions appropriately Head: normocephalic, atraumatic Eyes: ANITA, no icterus Mouth: Mucous membranes moist Neck: Trachea midline, no lymphadenopathy Cardio: RRR, no mumurs, rubs, or gallops Respiratory: CTAB, no wheezing, rhonchi, rales Abd: normal bowel sounds, no gaurding or rigidity Extremties: no pedal edema, pulses equal bilaterally, warm Skin: warm, dry, intact Internal Med - H&P Results - Labs CBC & Chem 7: 12/24/18 16:28 12/24/18 20:17 Labs: Short CBC 12/24/18 Range/Units 16:28 WBC 9.5 (4.3-11.1) K/mcL Hgb 10.7 L (12.9-16.9) g/dL Hct 31.7 L (37.5-50.1) % Plt Count 217 (140-400) K/mcL Neutrophils # 6.4 (1.6-8.9) K/mcL BMP 12/24/18 12/24/18 16:26 20:17 Sodium 129 L 133 L Potassium 7.5 H* 6.5 H* Chloride 103 104 Carbon Dioxide 19 L 21 L BUN 67 H 65 H Creatinine 2.87 H 2.63 H Glucose 193 H 127 H Calcium 7.1 L 7.0 L Cardiac Enzymes 12/24/18 Range/Units 16:26 Troponin I < 0.03 (< 0.04) ng/mL Urine 12/24/18 Range/Units 20:20 Urine Color Yellow (Yellow) Urine Clarity Clear (Clear) Urine pH 6.0 (5.0-8.0) pH Units Ur Specific [place] 1.009 L (1.010-1.025) Urine Protein Negative (Neg-Trace) mg/dL Urine Glucose (UA) Normal (Normal) mg/dL - Impressions ITS Impressions Chest X-Ray 12/24/18 15:40 IMPRESSION: Small left pleural effusion and pulmonary vascular congestion. D/ / Wendi Manjarrez MD / Wendi Manjarrez MD Interpreting Provider: Wendi Manjarrez MD - Assessment and Plan (1) Hyperkalemia Current Visit: Yes Status: Acute Assessment and plan: On admission patient was at potassium 7.5 was given Kayexalate, calcium gluconate, 1 L of sodium chloride, sodium bicarbonate, Humulin, dextrose and on repeat was potassium 6.5. Likely due to multiple etiologies Patient has had diarrhea and could be volume depleted, is on spironolactone which is a potassium sparing diuretic, CK D could prevent potassium from being renally excreted at a normal rate Patient has weakness CPK was ordered for possible rhabdomyolysis Urine sodium, osmolality, eosinophils, protein creatinine ratio ordered Renal ultrasound ordered Monitor I&O's IV fluids 75 mL/h Potassium every 2 hour checks (2) Diarrhea Current Visit: Yes Status: Acute Assessment and plan: Patient has 3 day history of copious watery diarrhea Patient denies any antibiotic use within the last month Patient denies any abdominal pain Denies any nausea, vomiting Stool panel ordered IV fluids Qualifiers: Diarrhea type: unspecified type Qualified Code(s): R19.7 - Diarrhea, unspecified (3) JESSICA (acute kidney injury) Current Visit: Yes Status: Acute Assessment and plan: Likely secondary to volume loss from diarrhea Unsure of patient's baseline creatinine due to recent consult to Dr. Grossman from his PCP for decreased renal function Renal ultrasound has been ordered Continue fluids normal saline 75 mL per hour Monitor creatinine Avoid nephrotoxic agents and renally dose any medications (4) Hypertension Current Visit: No Status: Chronic Assessment and plan: We will be holding patient's torsemide, spironolactone, valsartan due to possible renal impact Continue to monitor patient's blood pressure We will add PRN blood pressure medications if needed Qualifiers: Hypertension type: essential hypertension Qualified Code(s): I10 - Essential (primary) hypertension (5) Hypothyroidism Current Visit: No Status: Chronic Assessment and plan: Patient currently on Synthroid TSH in morning Continue patient's home medication Qualifiers: Hypothyroidism type: postoperative Qualified Code(s): E89.0 - Postprocedural hypothyroidism (6) CKD (chronic kidney disease) stage 3, GFR 30-59 ml/min Current Visit: No Status: Chronic Assessment and plan: Unsure of patient's baseline One year ago patient's baseline was creatinine 1.1-1.2 Patient currently was seeing Dr. Grossman for further workup Renal ultrasound has been ordered We will consult nephrology (7) Generalized weakness Current Visit: No Status: Acute Assessment and plan: Likely secondary to patient's hyperkalemia and dehydration from copious diarrhea We will continue to monitor and plan as above for hyperkalemia and diarrhea (8) DVT prophylaxis Current Visit: No Status: Acute Assessment and plan: Subcutaneous heparin (9) Type 2 diabetes mellitus Current Visit: No Status: Chronic Assessment and plan: Patient on insulin at home Sliding scale insulin low-dose Accu-Cheks Adjust dosage as needed Qualifiers: Diabetes mellitus senior living insulin use: with senior living use Diabetes mellitus complication status: with unspecified complications Qualified Code(s): E11.8 - Type 2 diabetes mellitus with unspecified complications; Z79.4 - long term care administrator (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 - Time Spent With Patient Total time spent is greater than 50% in coordination of care (as documented) at patient's floor/unit and/or counseling patient: <Jessee Mcneil - Last Filed: 12/25/18 01:04> Date of Encounter: 12/24/18 Time of Encounter: 21:45 Internal Medicine - H&P: HPI History of present illness: Mr. Stout is a 73 year old male All Systems PM: A 10-system review of systems was performed and is negative for pertinent findings except as documented above in the HPI. - Constitutional Vitals: Temp Pulse Resp BP Pulse Ox 97.7 F 84 18 155/91 99 12/24/18 23:31 12/24/18 23:31 12/24/18 23:31 12/24/18 22:15 12/24/18 23:31 Internal Med - H&P Results - Labs CBC & Chem 7: 12/24/18 16:28 12/24/18 23:58 Labs: Short CBC 12/24/18 Range/Units 16:28 WBC 9.5 (4.3-11.1) K/mcL Hgb 10.7 L (12.9-16.9) g/dL Hct 31.7 L (37.5-50.1) % Plt Count 217 (140-400) K/mcL Neutrophils # 6.4 (1.6-8.9) K/mcL BMP 12/24/18 12/24/18 12/24/18 16:26 20:17 23:58 Sodium 129 L 133 L Potassium 7.5 H* 6.5 H* 5.7 H Chloride 103 104 Carbon Dioxide 19 L 21 L BUN 67 H 65 H Creatinine 2.87 H 2.63 H Glucose 193 H 127 H Calcium 7.1 L 7.0 L Cardiac Enzymes 12/24/18 Range/Units 16:26 Troponin I < 0.03 (< 0.04) ng/mL Urine 12/24/18 Range/Units 20:20 Urine Color Yellow (Yellow) Urine Clarity Clear (Clear) Urine pH 6.0 (5.0-8.0) pH Units Ur Specific [place] 1.009 L (1.010-1.025) Urine Protein Negative (Neg-Trace) mg/dL Urine Glucose (UA) Normal (Normal) mg/dL - Impressions ITS Impressions Chest X-Ray 12/24/18 15:40 IMPRESSION: Small left pleural effusion and pulmonary vascular congestion. D/ / Wendi Manjarrez MD / Wendi Manjarrez MD Interpreting Provider: Wendi Manjarrez MD - Time Spent With Patient Total time spent is greater than 50% in coordination of care (as documented) at patient's floor/unit and/or counseling patient: - Attending Attestation I performed a history and physical examination of the patient and discussed his management with the resident. I reviewed the resident's note and agree with the documented plan of care. In short patient is a 73-year-old male with a past medical history of diabetes, CHF, hypertension among others who presented to the ED due to lower extremity weakness bilaterally with subsequent mechanical fall. Patient was found to be in acute kidney failure and hyperkalemic with a potassium of 7.5. Of note patient is being evaluated by Dr. Grossman with nephrology for chronic kidney disease as outpatient. Patient did report a 3 day history of loose stools in the absence of any fever or abdominal pain. In addition to his hyperkalemia patient did have a metabolic acidosis I suspect is likely secondary to his diarrhea, volume depletion and acute renal failure. Patient is on Spironalactone and an ARB which he reports to have continued to take despite his diarrhea. In the setting of his hyperkalemia there was findings of a left bundle-branch block which cannot be confirmed to be new due to lack of previous EKGs, however, patient denied any chest pain. No other EKG changes concerning for hyperkalemia were noted. Case was discussed with Dr. Edouard with nephrology. A repeat BMP did show improvement in potassium down to 6.5. I suspect his hyperkalemia is secondary to acute kidney injury, his medications and transcellular shift in the setting of metabolic acidosis. Patient was given calcium gluconate, Kayexalate, insulin and dextrose and albuterol. Creatinine appears to respond to initial fluids given in the ED. We will continue with fluid support, telemetry, and monitor potassium. We will obtain renal ultrasound as well as urine studies for further evaluation of the patient's kidney failure.
[2018-12-25 00:26] LABS: Estimated Average Glucose 209 mg/dl; Hemoglobin A1C 8.9 %
[2018-12-25 00:37] LABS: Potassium 5.7 mEq/L (3.5-5.1)
[2018-12-25] MEDS: *HR* Heparin 5,000 UNIT/ML VIAL SQ SCH ×3 (00:46→17:06)
[2018-12-25] MEDS: 0.9 % Sodium Chloride 1,000 ML IVC SCH ×2 (00:46→12:13)
[2018-12-25 01:58] LABS: Basophils % 0.6 %; Eosinophils # 0.1 K/mcL (0.0-0.6); Eosinophils % 2.1 %; Hematocrit 33.8 % (37.5-50.1); Hemoglobin 11.2 g/dL (12.9-16.9); Immature Granulocytes % 0.5 % (0-4); Lymphocytes # 2.2 K/mcL (0.6-4.6); Mean Corpuscular HGB Conc 33.1 g/dL (31.6-35.5); Mean Corpuscular Hemoglobin 30.6 pg (28.0-33.3); Mean Corpuscular Volume 92.3 fL (83.0-100.0); Mean Platelet Volume 10.8 fL (9.4-12.4); Monocytes # 0.6 K/mcL (0.0-1.3); Monocytes % 9.8 %; Neutrophils # 3.2 K/mcL (1.6-8.9); Platelet Count 156 K/mcL (140-400); Red Blood Count 3.66 M/mcL (4.19-5.50); Red Cell Distribution Width 12.6 % (11.5-14.5)
[2018-12-25 02:14] LABS: Protein/Creatinine Ratio,Urine 0.08 mg/mg (0.00-0.20); Sodium, Urine 75.6 mEq/L
[2018-12-25 02:14] LABS: Albumin 3.6 g/dL (3.5-5.7); Albumin/Globulin Ratio 1.2 (1.1-2.2); Bilirubin,Total 0.6 mg/dL (0.3-1.0); Calcium 6.9 mg/dL (8.6-10.3); Globulin 3.1 g/dL (2.4-3.5); Potassium 5.9 mEq/L (3.5-5.1); Total Protein 6.7 g/dL (6.4-8.9)
[2018-12-25 02:43] LABS: Platelet Estimate Normal (Normal)
[2018-12-25] MEDS ORDERED: Naloxone 0.4 MG/ML INJ IVP PRN (04:02)
[2018-12-25 04:10] LABS: Adenovirus F 40/41 PCR Not detected (Not detect); Astrovirus PCR Not detected (Not detect); C.difficile Toxin A/B Gene PCR Not detected (Not detect); Campylobacter by PCR Not detected (Not detect); Cryptosporidium by PCR Not detected (Not detect); Cyclospora cayetanensis PCR Not detected (Not detect); E. coli O157 by PCR Not detected (Not detect); Entamoeba histolytica PCR Not detected (Not detect); Enteroaggregative E.coli(EAEC) Not detected (Not detect); Enteropathogenic E.coli(EPEC) Not detected (Not detect); Enterotoxigenic E.coli (ETEC) Not detected (Not detect); Giardia lamblia PCR Not detected (Not detect); Norovirus GI/GII PCR Not detected (Not detect); Plesiomonas shigelloides PCR Not detected (Not detect); Rotavirus A PCR Not detected (Not detect); Salmonella PCR Not detected (Not detect); Sapovirus PCR Not detected (Not detect); Shig/EnteroinvasiveE coli EIEC Not detected (Not detect); Shigalike tox-prod E coli STEC Not detected (Not detect); Vibrio PCR Not detected (Not detect); Vibrio cholerae PCR Not detected (Not detect); Yersinia enterocolitica PCR Not detected (Not detect)
[2018-12-25] MEDS: Insulin LISPRO 300 UNITS/3 ML VIAL SQ SCH ×4 (08:38→22:39)
--- NOTE | 2018-12-25 11:47 | Nephrology Consult Note ---
Date of Encounter: 12/25/18 Time of Encounter: 12:50 Assessment and Plan (1) JESSICA (acute kidney injury) Current Visit: Yes Status: Acute Cont IVF and holding the Entresto and Spironolactone, which likely induced the severe hyperkalemia. He was able to be safely medically managed last night for the hyperkalemia without urgent HD; I discussed in several phone calls with the ER and Hospitalist(s) overnight and into today. Continue gentle IV fluids, at slow rate, given that he was recently hospitalized with congestive heart failure. He has no edema on exam, and due to the severity of the hyperkalemia and elevated creatinine, he is very likely prerenal Continue to follow a renal protective strategy: Avoid nephrotoxic agents including Bactrim, IV contrast, NSAIDs, and he is to have a renal diet that is low in potassium, as well as renal dosing of medications. Thank you for consultign the [facility]. He required a high level of complex medical decision making and continuously high risk evaluation and management starting from the moment he was in the ER with severe hyperkalemia (i.e., when I was first paged and provided recommendations), through several pages overnight and into the day of this note. I provided in total approx 48 min in CCT spread out over time, including recommendations by phone, face to face eval, documentation, chart review. I will closely follow with you. (2) Diarrhea Current Visit: Yes Status: Acute See above regarding IV fluids. Qualifiers: Diarrhea type: unspecified type Qualified Code(s): R19.7 - Diarrhea, unspecified (3) Hyperkalemia Current Visit: Yes Status: Acute See above. The patient was surprised to hear how high risk he was overnight, and how dangerous potassium can be. (4) Type 2 diabetes mellitus Current Visit: Yes Status: Chronic I counseled the patient to modify his lifestyle and to control his blood sugar to help delay CKD progression. Qualifiers: Diabetes mellitus acting section chief insulin use: with acting section chief use Diabetes mellitus complication status: with unspecified complications Qualified Code(s): E11.8 - Type 2 diabetes mellitus with unspecified complications; Z79.4 - cushion former (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 (5) Anxiety Current Visit: No Status: Chronic He cried briefly during the exam/interview and voiced having increased grief recently with the passing of several relatives. He said his partner has also recently been diagnosed with cancer. No family at bedside. I provided reassuring statements that we will provide good care for him. He thanked me for my time. (6) CKD (chronic kidney disease) stage 3, GFR 30-59 ml/min Current Visit: No Status: Chronic (7) Hypertension Current Visit: No Status: Chronic Rec adding Hydralzine. Caution with meds that could potentiate hyperkalemia. Qualifiers: Hypertension type: essential hypertension Qualified Code(s): I10 - Essential (primary) hypertension (8) Ischemic dilated cardiomyopathy Current Visit: No Status: Chronic History of CHF. This is why I recommended only providing a cautious/low flow IV fluids to correct the prerenal insult and hyperkalemia. I recommend giving the least but also an effective amount of IV fluids. He has no edema on exam. History of Present Illness - Reason for Consult Consult date: 12/24/18 Acute Kidney Injury, Chronic Kidney Disease, hyperkalemia Requesting physician: Stef Burton - Chief Complaint Hyperkalemia - History of Present Illness The patient is a 73-year-old male with a past medical history of ischemic cardiomyopathy, diabetes, morbid obesity, hypertension, and CKD stage III who presented with findings of significant hyperkalemia. He has recently established his nephrology care with my colleague Dr. Grossman in the clinic, and recent outpt labs demonstrated the elevated potassium. He was instructed by phone to go to the ER, and incidentally the patient reported having severe lower extremity fatigue of new onset in the last 24 hours. He denied being down or falling on the ground for prolonged periodis. He did not affirm taking [id number] NSAIDs. He reported that he was recently hospitalized for co ngestive heart failure. He sees cardiology with an outside group based in [place], [place]. He denied consuming lots of tomatoes, or bananas, or potatoes in excess. He denied suicidal ideation. He voiced having a history of anxiety, and a few of his relatives have recently within a short time frame. He also said that his partner of many years was recently diagnosed with cancer, and he said that he did not want to be sick at this time so that he could provide support for his partner. Family history: He did not affirm having any first-degree relatives with a history of dialysis. Past Med Surg Social Fam HX - Past Medical History Medical history: arthritis, cancer, cardiomyopathy, CHF, coronary artery disease, diabetes, hypertension, thyroid disease Additional medical history: Cancer of Thyroid-40 years ago Psychiatric history: no psych history - Past Surgical History Surgical History: angioplasty/stent, cancer surgery, herniorrhaphy, orthopedic, other, thyroidectomy, other Additional surgical history: hernia repair, cardiac stents - Social History Smoking Status: Never smoker Smokeless Tobacco Status: No Alcohol use: none Drug use: none - Family History Mother Name: Roberta Stout Living Status: Hx Family Musculoskeletal Disorders: Yes (Arthritis) Father Name: Meredith Stout Living Status: Hx Family Cardiac Disorders: Yes (Heart failure) Hx Family Cancer: No Hx Family GI Disorders: No Medications and Allergies Montelukast [Singulair] 10 mg PO HS #30 tablet 07/14/16 [Rx] Levothyroxine Sodium [Synthroid] 200 mcg PO QAM 05/07/17 [History] Aspirin [Lo-Dose Aspirin EC] 81 mg PO DAILY 12/24/18 [History] Atorvastatin [Lipitor] 40 mg PO HS 12/24/18 [History] Carvedilol 12.5 mg PO BID 12/24/18 [History] Cholecalciferol (D-3) [Vitamin D] 1,000 unit PO DAILY 12/24/18 [History] Gabapentin 800 mg PO TID 12/24/18 [History] Insulin Glargine,Hum.rec.anlog [Lantus Solostar] 70 units SQ HS 12/24/18 [History] Sacubitril/Valsartan 97/103 mg [Entresto 97 mg-103 mg Tablet] 1 tab PO BID 12/24/18 [History] Spironolactone 25 mg PO DAILY 12/24/18 [History] Torsemide 50 mg PO BID 12/24/18 [History] Allergy/AdvReac Type Severity Reaction Status Date / Time Penicillins Allergy Hives Verified 03/23/15 09:54 ERNST Inhibitors AdvReac Cough Verified 03/23/15 09:53 Review of Systems All Systems: reviewed and no additional remarkable complaints except as stated Exam - Vital Signs Vital signs: Initial Vital Signs Temp Pulse Resp BP Pulse Ox 97.9 F 74 16 104/72 96 12/24/18 15:34 12/24/18 15:34 12/24/18 15:34 12/24/18 15:34 12/24/18 15:34 Vital Signs - Last 8 Hours Temp Pulse Resp BP Pulse Ox 12/25/18 11:35 97.9 F 81 16 120/63 99 12/25/18 07:58 98.3 F 80 16 137/97 97 12/25/18 04:54 97.5 F L 76 17 149/81 97 Intake and Output 12/24/18 12/25/18 12/25/18 23:59 07:59 15:59 Intake Total 1120.1 / 1120.1 0 / 240 240 / 240 Output Total 425 / 750 325 / 750 Balance 1120.1 / 1120.1 -425 / -510 -85 / -510 Intake: IV Fluids 1120.1 / 1120.1 HumuLIN R 10 UNIT In Normal 10.1 / 10.1 Saline Flush 10 ML @ 1212 mls/ hr IV ONCE ONE Rx#:[id number] 0.9 % Sodium Chloride 1,000 ML 1000 / 1000 @ 3750 mls/hr IVC .Q16M ONE Rx# :[id number] Calcium Gluconate 1,000 MG In 0 110 / 110 .9 % Sodium Chloride 100 ML @ 220 mls/hr IVPB ONCE ONE Rx#: [id number] Oral 0 / 240 240 / 240 Output: Urine 425 / 750 325 / 750 Other: Meal Breakfast Percent of Meal Consumed 90% Stool Size Small Stool Consistency loose Stool Color Brown # Bowel Movements 1 Weight 128.5 kg Blood Glucose* 123 166 165 Patient Weight 12/25/18 23:59 Weight 128.5 kg - General Appearance Exam: General appearance: Present: well-developed, well-nourished, obese EENT: Present: ATNC, PERRL, mucous membranes moist Neck: Present: supple Respiratory: Present: clear (but very faint right basilar crackle) Cardiology: Present: no edema, regular rate, regular rhythm, normal S1, normal S2 Gastrointestinal: Present: normoactive bowel sounds, no tenderness, no guarding, obese. Absent: distended Integumentary: Present: no rash, warm and dry Neurologic: Present: no focal deficit, no asterixis, alert and oriented x3 Musculoskeletal: Present: no deformities, no erythema, no cyanosis, no clubbing Psychiatric: Present: mood/affect appropriate but at one point during my interview/exam he started to cry and voiced that he was going through the grieving process of recently relatives, cooperative Results - Lab Results 12/26/18 01:20 12/26/18 01:20 Most recent lab results 12/25/18 12/25/18 01:42 01:53 Calcium 6.9 L Phosphorus 6.0 H Magnesium 2.0 Urine Creatinine 48 Urine Sodium 75.6 Urine Total Protein 4 Consult Discharge Plan - Plan Referrals: Saloni Lombardo, CRYPTOA[employer]YSIS TEACHER [Primary Care Provider] -
--- NOTE | 2018-12-25 11:47 | Internal Med Progress Note ---
Hospitalist Progress Note - Encounter Date of Encounter: 12/25/18 Time of Encounter: 11:46 - Subjective Interval History: Evaluated patient earlier today. Continue to have diarrhea. Denies any abdominal pain but did have some tenderness on examination. No nausea or vomiting. Denies any dizziness or lightheadedness. - Exam Vitals: Temp Pulse Resp BP Pulse Ox 97.9 F 81 16 120/63 99 12/25/18 11:35 12/25/18 11:35 12/25/18 11:35 12/25/18 11:35 12/25/18 11:35 Exam: General: Patient is alert, mild distress, oriented x 3 ENT: Mucous membranes moist Respiratory: Good respiratory effort. Normal breath sounds. No wheezing or crackles. Cardiovascular: Regular rate and rhythm. s1 and s2 normal No clicks, rubs, gallops, or murmurs. No pedal edema Abdomen: Abdomen is soft, mild epigastric tenderness. Bowel sounds are present Musculoskeletal: Spontaneously moving all extremities Skin: warm, dry, intact. Neuro: Alert oriented x 3 normal cranial nerves, no focal deficits - Assessment and Plan (1) JESSICA (acute kidney injury) Current Visit: Yes Status: Acute (2) CKD (chronic kidney disease) stage 3, GFR 30-59 ml/min Current Visit: No Status: Chronic (3) Diarrhea Current Visit: Yes Status: Acute (4) Hyperkalemia Current Visit: Yes Status: Acute (5) Hypertension Current Visit: No Status: Chronic (6) Hypothyroidism Current Visit: No Status: Chronic (7) Type 2 diabetes mellitus Current Visit: No Status: Chronic - Summary of Assessment and Plan Summary of Assessment and Plan: Patient continues to have diarrhea. Stool panel negative. Will place him on Imodium. Nephrology consulted for management of acute kidney injury, hyperkalemia. Potassium level is slightly improved compared to yesterday but remain elevated. Will give additional dose of Kayexalate. Blood sugars are well controlled. Continue sliding scale insulin and diabetic diet. - Time Spent with Patient Total time spent is greater than 50% in coordination of care (as documented) at patient's floor/unit and/or counseling patient: Internal Medicine: Result - Labs CBC & Chem 7: 12/25/18 01:42 12/25/18 09:38 Labs: Short CBC 12/24/18 12/25/18 Range/Units 16:28 01:42 WBC 9.5 6.2 (4.3-11.1) K/mcL Hgb 10.7 L 11.2 L (12.9-16.9) g/dL Hct 31.7 L 33.8 L (37.5-50.1) % Plt Count 217 156 (140-400) K/mcL Neutrophils # 6.4 3.2 (1.6-8.9) K/mcL BMP 12/24/18 12/24/18 12/24/18 16:26 20:17 23:58 Sodium 129 L 133 L Potassium 7.5 H* 6.5 H* 5.7 H Chloride 103 104 Carbon Dioxide 19 L 21 L BUN 67 H 65 H Creatinine 2.87 H 2.63 H Glucose 193 H 127 H Calcium 7.1 L 7.0 L 12/25/18 12/25/18 12/25/18 01:42 04:15 05:59 Sodium 136 Potassium 5.9 H 5.3 H 5.4 H Chloride 108 H Carbon Dioxide 20 L BUN 62 H Creatinine 2.37 H Glucose 119 H Calcium 6.9 L 12/25/18 09:38 Sodium Potassium 5.8 H Chloride Carbon Dioxide BUN Creatinine Glucose Calcium Cardiac Enzymes 12/24/18 Range/Units 16:26 Troponin I < 0.03 (< 0.04) ng/mL Liver Function 12/25/18 Range/Units 01:42 Total Bilirubin 0.6 (0.3-1.0) mg/dL AST 21 (13-39) Units/L ALT 14 (7-52) Units/L Alkaline Phosphatase 56 (34-104) Units/L Albumin 3.6 (3.5-5.7) g/dL Urine 12/24/18 Range/Units 20:20 Urine Color Yellow (Yellow) Urine Clarity Clear (Clear) Urine pH 6.0 (5.0-8.0) pH Units Ur Specific [place] 1.009 L (1.010-1.025) Urine Protein Negative (Neg-Trace) mg/dL Urine Glucose (UA) Normal (Normal) mg/dL - Impressions Impressions Chest X-Ray 12/24/18 15:40 IMPRESSION: Small left pleural effusion and pulmonary vascular congestion. D/ / Wendi Manjarrez MD / Wendi Manjarrez MD Interpreting Provider: Wendi Manjarrez MD Consult Discharge Plan - Plan Referrals: Saloni Lombardo CNP [Primary Care Provider] - (3) Diarrhea Qualifiers: Diarrhea type: unspecified type Qualified Code(s): R19.7 - Diarrhea, unspecified (5) Hypertension Qualifiers: Hypertension type: essential hypertension Qualified Code(s): I10 - Essential (primary) hypertension (6) Hypothyroidism Qualifiers: Hypothyroidism type: postoperative Qualified Code(s): E89.0 - Postprocedural hypothyroidism (7) Type 2 diabetes mellitus Qualifiers: Diabetes mellitus termination clerk insulin use: with retirement use Diabetes mellitus complication status: with unspecified complications Qualified Code(s): E11.8 - Type 2 diabetes mellitus with unspecified complications; Z79.4 - 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
[2018-12-25] MEDS: Lactobacillus 1 EACH CAP.SPRINK PO SCH ×2 (12:13→22:38)
[2018-12-25] MEDS ORDERED: Acetaminophen IV 500 MG/50 ML INFUS..BTL IVPB ONE (23:20)
[2018-12-26] MEDS: 0.9 % Sodium Chloride 1,000 ML IVC SCH (01:34)
[2018-12-26 02:26] LABS: Basophils % 0.7 %; Eosinophils # 0.1 K/mcL (0.0-0.6); Eosinophils % 2.4 %; Hematocrit 31.7 % (37.5-50.1); Hemoglobin 10.3 g/dL (12.9-16.9); Immature Granulocytes % 0.5 % (0-4); Lymphocytes # 1.6 K/mcL (0.6-4.6); Lymphocytes % 27.3 %; Mean Corpuscular HGB Conc 32.5 g/dL (31.6-35.5); Mean Corpuscular Hemoglobin 29.9 pg (28.0-33.3); Mean Corpuscular Volume 91.9 fL (83.0-100.0); Mean Platelet Volume 10.8 fL (9.4-12.4); Monocytes # 0.5 K/mcL (0.0-1.3); Monocytes % 9.2 %; Neutrophils # 3.4 K/mcL (1.6-8.9); Platelet Count 197 K/mcL (140-400); Red Blood Count 3.45 M/mcL (4.19-5.50); Red Cell Distribution Width 12.4 % (11.5-14.5); Segmented Neutrophils % 59.9 %
[2018-12-26 02:44] LABS: Calcium 6.8 mg/dL (8.6-10.3); Potassium 5.1 mEq/L (3.5-5.1)
[2018-12-26] MEDS: *HR* Heparin 5,000 UNIT/ML VIAL SQ SCH (06:16)
[2018-12-26] MEDS: Insulin LISPRO 300 UNITS/3 ML VIAL SQ SCH ×2 (07:46→11:50)
[2018-12-26] MEDS ORDERED: Mag Hydrox/Al Hydrox/Simeth 30 ML UDC PO PRN (09:08)
[2018-12-26] MEDS: Lactobacillus 1 EACH CAP.SPRINK PO SCH ×2 (09:21→22:57)
[2018-12-26] MEDS ORDERED: Ondansetron 4 MG/2 ML VIAL IVP STA (11:34)
--- NOTE | 2018-12-26 12:08 | Nephrology Progress Note ---
Date of Encounter: 12/26/18 Time of Encounter: 11:40 - Assessment and Plan (1) JESSICA (acute kidney injury) Current Visit: Yes Status: Acute Cont holding the Entresto and Spironolactone, which likely induced the severe hyperkalemia. He'll need follow with up with his outpt virtualization architect, which he said is from the [facility] group (he sees them in [place], [place]). No indications for NURSE SPECIAL today. I've stopped the gentle IVF that he was receiving first thing this AM. He has no edema on exam. Hypertension: now that he is off Entresto and Spirono, his BPs are rising. Plus he had received IVF which would have contributed to elevated BPs. I recommend adding hydralazine. I recommend he also follow up with a Isotope Technologist after this admission since he has CKD and will need electrolyte monitoring/management, plus adjustment of his Rx (at some point, when stable enough, an ERNST [but he has a listed allergy to ACEi] or ARB would be ideal for his CKD and CHF -- but d/t the JESSICA and hyperkalemia, these Rx are still not an option). He also had sudden onset of N/V while I happen to be rounding today on Thursday, and I had verbally ordered Zofran 4mg IV x1 now. Discussed with the floor RN. (2) Diarrhea Current Visit: Yes Status: Acute Qualifiers: Diarrhea type: unspecified type Qualified Code(s): R19.7 - Diarrhea, unsp ecified (3) Hyperkalemia Current Visit: Yes Status: Acute (4) Nausea Current Visit: Yes Status: Acute (5) Hypertension Current Visit: No Status: Chronic Rec adding Hydralzine. Qualifiers: Hypertension type: essential hypertension Qualified Code(s): I10 - Essential (primary) hypertension (6) Type 2 diabetes mellitus Current Visit: Yes Status: Chronic I counseled the patient to modify his lifestyle and to control his blood sugar to help delay CKD progression. Qualifiers: Diabetes mellitus local company intermodal truck driver insulin use: with local company intermodal truck driver use Diabetes mellitus complication status: with unspecified complications Qualified Code(s): E11.8 - Type 2 diabetes mellitus with unspecified complications; Z79.4 - group home (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 (7) Ischemic dilated cardiomyopathy Current Visit: No Status: Chronic History of CHF. I have already stopped IVF to cautiously limit this exposure. He is complex. Subjective Principal diagnosis: Hyperkalemia and JESSICA Interval history: The patient was seen and examined in his room earlier today. He stated that his feelings of weakness were not quite as severe. He affirmed that he has a good appetite and has been trying to eat. He denied nausea, vomiting, and stated that the diarrhea is improving. Objective - Vital Signs Vital signs: Vital Signs Temp Pulse Resp BP Pulse Ox 12/26/18 10:54 98.6 F 79 175/94 95 12/26/18 07:14 98.1 F 77 155/83 96 12/26/18 03:40 98.0 F 76 16 158/88 98 12/25/18 22:23 82 16 159/106 Intake and Output 12/25/18 12/26/18 12/26/18 23:59 07:59 15:59 Intake Total 290 / 1770 1000 / 1120 120 / 1120 Output Total 1000 / 2600 350 / 600 250 / 600 Balance -710 / -830 650 / 520 -130 / 520 Intake: IV Fluids 50 / 1050 1000 / 1000 0.9 % Sodium Chloride 1,000 ML 1000 / 1000 @ 75 mls/hr IVC .[id number] [facility] Rx #:[id number] Ofirmev 1,000 mg/100 ml 500 mg 50 / 50 In 50 ml @ 200 mls/hr IVPB ONCE ONE Rx#:[id number] Oral 240 / 720 120 / 120 Output: Urine 1000 / 2600 350 / 600 250 / 600 Other: Meal Dinner Breakfast Percent of Meal Consumed 100% 25% Stool Size Smear Smear Stool Consistency loose Stool Color Brown Brown # Voids 1 1 # Bowel Movements 2 Weight 130.6 kg Blood Glucose* 173 119 261 - General Appearance General appearance: Present: well-developed, well-nourished, obese EENT: Present: ATNC, PERRL, mucous membranes moist Neck: Present: supple Respiratory: Present: clear (but very faint right basilar crackle) Cardiology: Present: no edema, regular rate, regular rhythm, normal S1, normal S2 Gastrointestinal: Present: normoactive bowel sounds, no tenderness, no guarding, obese. Absent: distended Integumentary: Present: no rash, warm and dry Neurologic: Present: no focal deficit, no asterixis, alert and oriented x3 Musculoskeletal: Present: no deformities, no erythema, no cyanosis, no clubbing Psychiatric: Present: mood/affect appropriate, cooperative - Lab 12/26/18 01:20 12/26/18 01:20 Most recent lab results 12/26/18 01:20 Calcium 6.8 L Consult Discharge Plan - Plan Referrals: Saloni Lombardo, RIPSAW MATCHER [Primary Care Provider] -
--- NOTE | 2018-12-26 13:03 | Internal Med Progress Note ---
Hospitalist Progress Note - Encounter Date of Encounter: 12/26/18 Time of Encounter: 13:01 - Subjective Interval History: Evaluated patient earlier today. States that he does not feel good today but unable to explain what is bothering him. He did develop nausea later and had an episode of emesis. He states that his diarrhea has improved. No fever or chills reported overnight. No chest pain. no abdominal pain. He has had good urine output. - Exam Vitals: Temp Pulse Resp BP Pulse Ox 98.6 F 79 16 175/94 95 12/26/18 10:54 12/26/18 10:54 12/26/18 03:40 12/26/18 10:54 12/26/18 10:54 Exam: General: Patient is alert, no acute distress, oriented x 3 ENT: Mucous membranes moist Respiratory: Decreased breath sounds at both bases Cardiovascular: Regular rate and rhythm. s1 and s2 normal No clicks, rubs, gallops, or murmurs. No pedal edema Abdomen: Abdomen is soft, nontender. Bowel sounds are present Musculoskeletal: Spontaneously moving all extremities Skin: warm, dry, intact. Neuro: Alert oriented x 3 normal cranial nerves, no focal deficits - Assessment and Plan (1) JESSICA (acute kidney injury) Current Visit: Yes Status: Acute (2) CKD (chronic kidney disease) stage 3, GFR 30-59 ml/min Current Visit: No Status: Chronic (3) Diarrhea Current Visit: Yes Status: Acute (4) Hyperkalemia Current Visit: Yes Status: Acute (5) Hypertension Current Visit: No Status: Chronic (6) Hypothyroidism Current Visit: No Status: Chronic (7) Type 2 diabetes mellitus Current Visit: Yes Status: Chronic - Summary of Assessment and Plan Summary of Assessment and Plan: Acute kidney injury is improving. Creatinine is 1.77 today. Potassium is 5.1. Nephrology consult appreciated. Continue to hold spironolactone and Entresto. Blood pressure elevated today. Hydralazine has been added to control blood pressure better. We will place Patient on Zofran for nausea and vomiting. We will continue to monitor patient in the hospital today. Blood sugars are well controlled. Continue current insulin regimen. If his symptoms improved and is feeling better, possible discharge tomorrow. Moderate risk for complications. - Time Spent with Patient Total time spent is greater than 50% in coordination of care (as documented) at patient's floor/unit and/or counseling patient: Internal Medicine: Result - Labs CBC & Chem 7: 12/26/18 01:20 12/26/18 01:20 Labs: Short CBC 12/26/18 Range/Units 01:20 WBC 5.8 (4.3-11.1) K/mcL Hgb 10.3 L (12.9-16.9) g/dL Hct 31.7 L (37.5-50.1) % Plt Count 197 (140-400) K/mcL Neutrophils # 3.4 (1.6-8.9) K/mcL BMP 12/26/18 01:20 Sodium 136 Potassium 5.1 Chloride 108 H Carbon Dioxide 21 L BUN 45 H Creatinine 1.77 H Glucose 140 H Calcium 6.8 L - Impressions Impressions Retroperitoneum Ultrasound 12/25/18 15:00 IMPRESSION: 1. No evidence of hydronephrosis. D/ / Venkatesh Clemons MD / Venkatesh Clemons MD Interpreting Provider: Venkatesh Clemons MD Consult Discharge Plan - Plan Referrals: Saloni Lombardo, MANAGER JAVA [Primary Care Provider] - (3) Diarrhea Qualifiers: Diarrhea type: unspecified type Qualified Code(s): R19.7 - Diarrhea, unspecified (5) Hypertension Qualifiers: Hypertension type: essential hypertension Qualified Code(s): I10 - Essential (primary) hypertension (6) Hypothyroidism Qualifiers: Hypothyroidism type: postoperative Qualified Code(s): E89.0 - Postprocedural hypothyroidism (7) Type 2 diabetes mellitus Qualifiers: Diabetes mellitus skilled nursing insulin use: with skilled nursing use Diabetes mellitus complication status: with unspecified complications Qualified Code(s): E11.8 - Type 2 diabetes mellitus with unspecified complications; Z79.4 - [facility] (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
[2018-12-26] MEDS ORDERED: Acetaminophen 325 MG TABLET PO PRN (14:22)
[2018-12-27] MEDS: hydrALAZINE 25 MG TABLET PO SCH ×5 (00:06→23:58)
[2018-12-27] MEDS: Insulin LISPRO 300 UNITS/3 ML VIAL SQ SCH ×6 (06:14→21:37)
[2018-12-27] MEDS: *HR* Heparin 5,000 UNIT/ML VIAL SQ SCH ×3 (06:14→17:18)
[2018-12-27] MEDS: Ondansetron 4 MG/2 ML VIAL IVP PRN (06:47)
[2018-12-27 07:29] LABS: Albumin 3.7 g/dL (3.5-5.7); Calcium 7.7 mg/dL (8.6-10.3)
[2018-12-27] MEDS: Lactobacillus 1 EACH CAP.SPRINK PO SCH ×2 (08:24→21:33)
--- NOTE | 2018-12-27 09:49 | Electrocardiograph Report ---
[address] [address] Test Date: 2018-12-24 Pat Name: Juan Stout Department: 104 Room: 2NE26 Gender: M Assistant Guest Services Manager: : 1945 Requested By: Vern Sumner Order Number: [id number] Reading MD: Mike Zamarripa Measurements Intervals [place]ais Rate: 69 P: 3 WI: 216 QRS: -39 QRSD: 138 T: 73 QT: 456 QTc: 475 Interpretive Statements SINUS RHYTHM WITH FIRST DEGREE AV BLOCK MARKED LEFT AXIS DEVIATION INTRAVENTRICULAR CONDUCTION DELAY LATERAL ST-T CHANGES, CONSIDER ISCHEMIA Electronically Signed On 12-27-2018 9:47:40 EDT by Mike Zamarripa
--- NOTE | 2018-12-27 09:52 | Electrocardiograph Report ---
[address] [address] Test Date: 2018-12-24 Pat Name: Juan Stout Department: [id number] Room: 2NE26 Gender: M Laborer General: : 1945 Requested By: Vern Murdock Order Number: [id number] Reading MD: Mike Zamarripa Measurements Intervals [place] Rate: 72 P: 33 AL: 277 QRS: -24 QRSD: 127 T: 108 QT: 456 QTc: 500 Interpretive Statements Sinus rhythm Prolonged AL interval Left bundle branch block Electronically Signed On 12-27-2018 9:50:29 EDT by Mike Zamarripa
--- NOTE | 2018-12-27 12:37 | Internal Med Progress Note ---
Hospitalist Progress Note - Encounter Date of Encounter: 12/27/18 Time of Encounter: 12:37 - Subjective Interval History: Evaluated patient earlier today. Complaints of intractable nausea and vomiting. Also had mild epigastric pain. Denies any fevers or chills. No chest pain. Does have good urine output. - Exam Vitals: Temp Pulse Resp BP Pulse Ox 97.9 F 81 19 168/90 96 12/27/18 11:53 12/27/18 11:53 12/27/18 11:53 12/27/18 11:53 12/27/18 11:53 Exam: General: Patient is alert, mild distress, oriented x 3 ENT: Mucous membranes moist Respiratory: Good respiratory effort. Normal breath sounds. No wheezing or crackles. Cardiovascular: Regular rate and rhythm. s1 and s2 normal No clicks, rubs, gallops, or murmurs. No pedal edema Abdomen: Abdomen is soft, epigastric tenderness presen.. Bowel sounds are present Musculoskeletal: Spontaneously moving all extremities Skin: warm, dry, intact. Neuro: Alert oriented x 3 normal cranial nerves, no focal deficits - Assessment and Plan (1) JESSICA (acute kidney injury) Current Visit: Yes Status: Acute (2) CKD (chronic kidney disease) stage 3, GFR 30-59 ml/min Current Visit: No Status: Chronic (3) Diarrhea Current Visit: Yes Status: Acute (4) Hyperkalemia Current Visit: Yes Status: Acute (5) Hypertension Current Visit: No Status: Chronic (6) Hypothyroidism Current Visit: No Status: Chronic (7) Type 2 diabetes mellitus Current Visit: Yes Status: Chronic (8) Intractable nausea and vomiting Current Visit: Yes Status: Acute (9) Congestive heart failure Current Visit: Yes Status: Chronic - Summary of Assessment and Plan Summary of Assessment and Plan: Patient with acute kidney injury related to dehydration from persistent diar oscar. Now having nausea and vomiting and mild abdominal pain. CT of the abdomen and pelvis done. Shows possible pancreatic inflammation. Patient also has bilateral perinephric stranding and thickening of the bladder. We will obtain lipase and amylase levels. Will keep patient nothing by mouth. Start patient on IV fluids gently. Renal function is improving. Continue to hold spironolactone and entresto. Potassium 5 today. Blood sugars are elevated today. Will add long-acting insulin. Blood pressure remains elevated. Added carvedilol. Patient with history of chronic systolic congestive heart failure. Last known EF per echocardiogram done in 2017 was 30%. Will repeat echocardiog veronica. Currently he does not appear to be fluid overloaded. Moderate risk for complications. - Time Spent with Patient Total time spent is greater than 50% in coordination of care (as documented) at patient's floor/unit and/or counseling patient: Internal Medicine: Result - Labs CBC & Chem 7: 12/26/18 01:20 12/27/18 06:22 Labs: BMP 12/27/18 06:22 Sodium 137 Potassium 5.0 Chloride 108 H Carbon Dioxide 20 L BUN 31 H Creatinine 1.56 H Glucose 176 H Calcium 7.7 L Liver Function 12/27/18 Range/Units 06:22 Albumin 3.7 (3.5-5.7) g/dL - Impressions Impressions Abdomen/Pelvis CT 12/27/18 10:38 IMPRESSION: Small right pleural effusion. Cholelithiasis. Bilateral perinephric stranding is seen and there is thickening of the bladder. If there is clinical concern for infection, suggest correlation with urinalysis. Mild induration is seen of fat within the midline upper abdomen, including about the pancreas. While this is mild, if there is clinical concern for pancreatitis, suggest correlation with amylase and lipase. Prostatomegaly. Correlate with urologic history. Sclerotic foci within the proximal left femur and pelvis, typically bone islands in an otherwise healthy patient. Metastatic disease is a less common consideration in a patient without predisposing clinical risk factors. D/ / Moe Castano MD / Moe Castano MD Interpreting Provider: Moe Castano MD Consult Discharge Plan - Plan Referrals: Saloni Lombardo, CARGO TRIMMER [Primary Care Provider] - (3) Diarrhea Qualifiers: Diarrhea type: unspecified type Qualified Code(s): R19.7 - Diarrhea, unspecified (5) Hypertension Qualifiers: Hypertension type: essential hypertension Qualified Code(s): I10 - Essential (primary) hypertension (6) Hypothyroidism Qualifiers: Hypothyroidism type: postoperative Qualified Code(s): E89.0 - Postprocedural hypothyroidism (7) Type 2 diabetes mellitus Qualifiers: Diabetes mellitus ocean transportation intermediary insulin use: with ocean transportation intermediary use Diabetes mellitus complication status: with unspecified complications Qualified Code(s): E11.8 - Type 2 diabetes mellitus with unspecified complications; Z79.4 - intermediate manager (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 (8) Intractable nausea and vomiting Qualifiers: Vomiting type: cyclical vomiting Qualified Code(s): G43.A1 - Cyclical vomiting, intractable (9) Congestive heart failure Qualifiers: Heart failure type: systolic Heart failure chronicity: chronic Qualified Code(s): I50.22 - Chronic systolic (congestive) heart failure
--- NOTE | 2018-12-27 12:38 | Nephrology Progress Note ---
Date of Encounter: 12/27/18 Time of Encounter: 10:40 - Assessment and Plan (1) JESSICA (acute kidney injury) Current Visit: Yes Status: Acute With the hyperkalemia now resolved, yet his serum creatinine seems to be improving better than baseline, I would recommend adding a loop diuretic at this point (he has a history of CHF/ischemic cardiomyopathy), and though he has no edema on exam, I would recommend avoiding it. Cont holding the Entresto and Spironolactone, which likely induced the severe hyperkalemia. He'll need follow with up with his outpt television repair teacher, which he said is from the [facility] group (he sees them in [place], [place]). No indications for PAYROLL TECHNICIAN today. Hypertension: now that he is off Entresto and Spirono, his BPs are rising. Plus he had received IVF which would have contributed to elevated BPs. I recommend using hydralazine. I recommend he also follow up with a Material Spreader after this admission since he has CKD and will need electrolyte monitoring/management, plus adjustment of his Rx (at some point, when stable enough, an ERNST [but he has a listed allergy to ACEi] or ARB would be ideal for his CKD and CHF -- but d/t the JESSICA and hyperkalemia, these Rx are still not an option). Now that his renal function and hyperkalemia have demonstrated significant improvement. I will sign-off. Please feel free to call or page me with any renal questions. Thank you. (2) Diarrhea Current Visit: Yes Status: Acute Abd pain work up as per primary Qualifiers: Diarrhea type: unspecified type Qualified Code(s): R19.7 - Diarrhea, unspecified (3) Hyperkalemia Current Visit: Yes Status: Resolved (4) Nausea Current Visit: Yes Status: Acute (5) Hypertension Current Visit: No Status: Chronic Rec adding Hydralzine. See above Qualifiers: Hypertension type: essential hypertension Qualified Code(s): I10 - Essential (primary) hypertension (6) Type 2 diabetes mellitus Current Visit: Yes Status: Chronic I counseled the patient to modify his lifestyle and to control his blood sugar to help delay CKD progression. Qualifiers: Diabetes mellitus correction insulin use: with correction use Diabetes mellitus complication status: with unspecified complications Qualified Code(s): E11.8 - Type 2 diabetes mellitus with unspecified complications; Z79.4 - [facility] (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 (7) Ischemic dilated cardiomyopathy Current Visit: No Status: Chronic History of CHF. I have already stopped IVF to cautiously limit this exposure. He is complex. Subjective Principal diagnosis: Hyperkalemia and JESSICA Interval history: The patient was seen and examined in his room earlier today. He complained of nausea with vomiting earlier today. He said he just returned to his room after having an abdominal scan. He did not affirm CP or JACKSON. Objective - Vital Signs Vital signs: Vital Signs Temp Pulse Resp BP Pulse Ox 12/27/18 11:53 97.9 F 81 19 168/90 96 12/27/18 08:49 97 12/27/18 07:24 98.3 F 75 19 177/103 97 12/27/18 04:15 97.7 F 77 22 167/89 95 12/26/18 23:49 98.2 F 77 16 178/90 98 12/26/18 19:38 98.1 F 80 18 176/83 96 12/26/18 15:40 98.5 F 80 166/82 95 Intake and Output 12/26/18 12/27/18 12/27/18 23:59 07:59 15:59 Intake Total 60 / 1180 0 / 120 120 / 120 Output Total 200 / 200 Balance 60 / 580 -200 / -80 120 / -80 Intake: Oral 60 / 180 0 / 120 120 / 120 Output: Urine 200 / 200 Other: Meal Dinner Breakfast Percent of Meal Consumed 40% 0% Blood Glucose* 180 177 196 - General Appearance General appearance: Present: well-developed, well-nourished, appears started age, obese, fatigue, frail EENT: Present: ATNC, PERRL, mucous membranes moist Neck: Present: supple Respiratory: Present: clear (except for faint right basilar crackles) Cardiology: Present: no edema, regular rate, regular rhythm, normal S1, normal S2 Gastrointestinal: Present: normoactive bowel sounds, no tenderness, no guarding, obese Integumentary: Present: warm and dry Neurologic: Present: no focal deficit, no asterixis, alert and oriented x3 - Lab 12/26/18 01:20 12/27/18 06:22 Most recent lab results 12/27/18 06:22 Calcium 7.7 L Consult Discharge Plan - Plan Referrals: Saloni Lombardo, GENE [Primary Care Provider] -
[2018-12-27 14:35] LABS: Thyroid Stimulating Hormone 0.474 mcIU/mL (0.340-5.600)
[2018-12-27] MEDS ORDERED: Perflutren Lipid Microsphere 1.3 ML in 0.9 % Sodium Chloride 8.7 ML IVP ONE (18:47)
[2018-12-27] MEDS: Insulin DETEMIR 100 UNIT/ML X5UNITS SQ SCH (21:33)
[2018-12-28] MEDS: Ondansetron 4 MG/2 ML VIAL IVP PRN (01:36)
[2018-12-28] MEDS: *HR* Heparin 5,000 UNIT/ML VIAL SQ SCH ×2 (06:17→20:11)
[2018-12-28 06:51] LABS: Basophils % 0.5 %; Eosinophils # 0.1 K/mcL (0.0-0.6); Eosinophils % 1.4 %; Hematocrit 33.6 % (37.5-50.1); Hemoglobin 11.3 g/dL (12.9-16.9); Lymphocytes # 1.8 K/mcL (0.6-4.6); Lymphocytes % 24.8 %; Mean Corpuscular HGB Conc 33.6 g/dL (31.6-35.5); Mean Corpuscular Hemoglobin 30.5 pg (28.0-33.3); Mean Corpuscular Volume 90.6 fL (83.0-100.0); Mean Platelet Volume 10.4 fL (9.4-12.4); Monocytes # 0.7 K/mcL (0.0-1.3); Neutrophils # 4.6 K/mcL (1.6-8.9); Platelet Count 215 K/mcL (140-400); Red Blood Count 3.71 M/mcL (4.19-5.50); Red Cell Distribution Width 12.4 % (11.5-14.5); Segmented Neutrophils % 62.3 %
[2018-12-28 07:11] LABS: Potassium 4.9 mEq/L (3.5-5.1)
[2018-12-28] MEDS ORDERED: *HR* Promethazine 25 MG/ML VIAL IVP PRN (08:23)
[2018-12-28] MEDS: Gabapentin 300 MG CAPSULE PO SCH ×3 (10:14→20:03)
[2018-12-28] MEDS: Lactobacillus 1 EACH CAP.SPRINK PO SCH ×3 (10:14→20:03)
[2018-12-28] MEDS: hydrALAZINE 25 MG TABLET PO SCH ×2 (10:14→12:35)
[2018-12-28] MEDS: Insulin LISPRO 300 UNITS/3 ML VIAL SQ SCH ×4 (10:16→20:22)
[2018-12-28] MEDS: Insulin DETEMIR 100 UNIT/ML X5UNITS SQ SCH ×2 (10:16→20:19)
--- NOTE | 2018-12-28 12:16 | Internal Med Progress Note ---
Hospitalist Progress Note - Encounter Date of Encounter: 12/28/18 Time of Encounter: 10:00 - Subjective Interval History: Patient continues to have nausea and intemittent episodes of emesis although the severity is definitely decreasing. No fevers or chills. No shortness of breath. He does have mild epigastric discomfort. Having good urine output. - Exam Vitals: Temp Pulse Resp BP Pulse Ox 98.0 F 76 18 179/98 98 12/28/18 07:05 12/28/18 07:05 12/28/18 07:05 12/28/18 07:05 12/28/18 07:05 Exam: General: Patient is alert, mild distress, oriented x 3 ENT: Mucous membranes moist Respiratory: Good respiratory effort. Normal breath sounds. No wheezing or crackles. Cardiovascular: Regular rate and rhythm. s1 and s2 normal No clicks, rubs, gallops, or murmurs. No pedal edema Abdomen: Abdomen is soft, mild tenderness to deep palpation. Bowel sounds are present Musculoskeletal: Spontaneously moving all extremities Skin: warm, dry, intact. Neuro: Alert oriented x 3 normal cranial nerves, no focal deficits - Assessment and Plan (1) Intractable nausea and vomiting Current Visit: Yes Status: Acute Assessment and Plan: Patient with diabetes. May have underlying diabetic gastroparesis. Will place patient on Reglan scheduled dose. Patient continues to have intractable nausea. On clear liquid diet. Will assess response to Reglan and if his symptoms improve, we will advance diet. Moderate risk for complications. (2) JESSICA (acute kidney injury) Current Visit: Yes Status: Acute Assessment and Plan: Improving. Creatinine continues to trend downwards. 1.47 today. (3) CKD (chronic kidney disease) stage 3, GFR 30-59 ml/min Current Visit: Yes Status: Chronic Assessment and Plan: Creatinine not yet at baseline but trending in that direction. Holding Lasix for now. This will need to be restarted prior to discharge because of patient's underlying congestive heart failure. (4) Diarrhea Current Visit: Yes Status: Resolved (5) Hyperkalemia Current Visit: Yes Status: Resolved Assessment and Plan: Continue to hold Entresto (6) Hypertension Current Visit: Yes Status: Chronic Assessment and Plan: Blood pressure is better controlled overall. He does have intermittent elevation. We will monitor and adjust antihypertensive regimen. (7) Hypothyroidism Current Visit: Yes Status: Chronic Assessment and Plan: continue levothyroxin (8) Type 2 diabetes mellitus Current Visit: Yes Status: Chronic Assessment and Plan: Blood sugars are well controlled. Continue current insulin regimen. (9) Congestive heart failure Current Visit: Yes Status: Chronic Assessment and Plan: Patient with chronic combined systolic and diastolic congestive heart failure. Echocardiogram done yesterday shows improved EF of 40-50% with moderate left ventricle and diastolic dysfunction. Currently Lasix on hold due to acute kidney injury. Also holding Entresto due to persistent hyperkalemia. Would recommend outpatient follow-up with cardiology at discharge. DVT Prophylaxis: SQ heparin - Time Spent with Patient Total time spent is greater than 50% in coordination of care (as documented) at patient's floor/unit and/or counseling patient: Internal Medicine: Result - Labs CBC & Chem 7: 12/28/18 06:31 12/28/18 06:31 Labs: Short CBC 12/28/18 Range/Units 06:31 WBC 7.3 (4.3-11.1) K/mcL Hgb 11.3 L (12.9-16.9) g/dL Hct 33.6 L (37.5-50.1) % Plt Count 215 (140-400) K/mcL Neutrophils # 4.6 (1.6-8.9) K/mcL BMP 12/27/18 12/28/18 06:22 06:31 Sodium 137 136 Potassium 5.0 4.9 Chloride 108 H 107 Carbon Dioxide 20 L 21 L BUN 31 H 28 H Creatinine 1.56 H 1.47 H Glucose 176 H 168 H Calcium 7.7 L 8.0 L Liver Function 12/27/18 Range/Units 06:22 Albumin 3.7 (3.5-5.7) g/dL - Impressions Impressions Echocardiogram 12/27/18 13:04 Impressions: LVEF 45-50%. Moderate concentric left ventricular hypertrophy. Moderate left ventricular diastolic dysfunction. Atypical septal motion consistent with bundle branch block. Normal right ventricular structure and function. Mild mitral regurgitation. Unable to estimate RVSP due to lack of TR jet. Left Ventricular Wall Motion: Rest Echo Findings The apex, apical anterior and mid anterior lateral stein were not visualized. All other wall segments showed normal motion. Findings: Study Quality * Technically sub-optimal due to poor echocardiographic windows. ECG Findings * Sinus rhythm with BBB. Left Ventricle * LVEF 45-50%. * Moderate concentric left ventricular hypertrophy. * Moderate left ventricular diastolic dysfunction. * Definity echo contrast was not used. * Atypical septal motion consistent with bundle branch block. * Mild left ventricular systolic dysfunction. * Normal LV chamber size. Right Ventricle * Normal right ventricular structure and function. Left Atrium * Normal left atrial size. Right Atrium * Normal right atrial size. Interatrial Septum * Interatrial septum not well evaluated. Aortic Valve * Mildly calcified aortic valve leaflets. * Trace aortic regurgitation. * No aortic stenosis. * Trileaflet aortic valve. Mitral Valve * Normal mitral valve structure. * No mitral stenosis. * Mild mitral regurgitation. Tricuspid Valve * Trace tricuspid regurgitation. * Normal tricuspid valve structure. * Unable to estimate RVSP due to lack of TR jet. * No tricuspid stenosis. Pulmonic Valve * Pulmonic valve not well visualized. Aorta * Normally sized aortic root. Pericardium * There is a small pericardial effusion present. * There is no echocardiographic evidence of tamponade. IVC * The IVC is dilated. Pulmonary Artery * Pulmonary artery not well visualized. Consult Discharge Plan - Plan Referrals: Saloni Lombardo, PILE DRIVING SUPERINTENDENT [Primary Care Provider] - (1) Intractable nausea and vomiting Qualifiers: Vomiting type: cyclical vomiting Qualified Code(s): G43.A1 - Cyclical vomiting, intractable (4) Diarrhea Qualifiers: Diarrhea type: unspecified type Qualified Code(s): R19.7 - Diarrhea, unspecified (6) Hypertension Qualifiers: Hypertension type: essential hypertension Qualified Code(s): I10 - Essential (primary) hypertension (7) Hypothyroidism Qualifiers: Hypothyroidism type: postoperative Qualified Code(s): E89.0 - Postprocedural hypothyroidism (8) Type 2 diabetes mellitus Qualifiers: Diabetes mellitus senior care insulin use: with senior care use Diabetes mellitus complication status: with unspecified complications Qualified Code(s): E11.8 - Type 2 diabetes mellitus with unspecified complications; Z79.4 - assisted (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 (9) Congestive heart failure Qualifiers: Heart failure type: combined systolic and diastolic Heart failure chronicity: chronic Qualified Code(s): I50.42 - Chronic combined systolic (congestive) and diastolic (congestive) heart failure
[2018-12-28] MEDS: Metoclopramide 10 MG/2 ML VIAL IVP SCH ×3 (12:30→21:55)
[2018-12-29] MEDS: hydrALAZINE 25 MG TABLET PO SCH ×4 (00:04→23:56)
[2018-12-29] MEDS: *HR* Heparin 5,000 UNIT/ML VIAL SQ SCH ×2 (06:06→16:40)
[2018-12-29 06:57] LABS: Calcium 7.8 mg/dL (8.6-10.3); Potassium 4.7 mEq/L (3.5-5.1)
[2018-12-29] MEDS: Insulin LISPRO 300 UNITS/3 ML VIAL SQ SCH ×4 (07:36→21:56)
[2018-12-29] MEDS: Lactobacillus 1 EACH CAP.SPRINK PO SCH ×2 (08:24→21:55)
[2018-12-29] MEDS: Gabapentin 300 MG CAPSULE PO SCH ×2 (08:24→21:55)
[2018-12-29] MEDS: Metoclopramide 10 MG/2 ML VIAL IVP SCH ×4 (08:24→21:55)
[2018-12-29] MEDS: Insulin DETEMIR 100 UNIT/ML X5UNITS SQ SCH ×2 (08:26→21:55)
[2018-12-29 09:31] LABS: Bilirubin,Urine Small (Negative); Blood,Urine Negative (Negative); Clarity,Urine Clear (Clear); Color,Urine Yellow (Yellow); Glucose,Urine (UA) 100 mg/dL (Normal); Ketones,Urine Negative (Negative); Leukocyte Esterase,Urine Negative (Negative); Nitrite,Urine Negative (Negative); PH,Urine 5.5 pH Units (5.0-8.0); Protein,Urine Negative (Neg-Trace); Specific Gravity,Urine 1.023 (1.010-1.025); Urobilinogen,Urine Normal (Normal)
--- NOTE | 2018-12-29 18:19 | Internal Med Progress Note ---
Hospitalist Progress Note - Encounter Date of Encounter: 12/29/18 Time of Encounter: 11:00 - Subjective Interval History: Patient is a 73 year old male who presents due to generalized weakness and nausea/vomiting. Patient able to tolerate clear liquid diet yesterday therefore diet will be advanced as tolerated today. - Exam Vitals: Temp Pulse Resp BP Pulse Ox 98.4 F 77 16 133/78 94 12/29/18 04:00 12/29/18 16:41 12/29/18 16:41 12/29/18 16:41 12/29/18 08:28 Exam: Gen.: Nonacute distress, alert and oriented 3 ENT: Mucosal membranes moist Respiratory: Lungs are clear to auscultation bilaterally without any wheezing rhonchi or rales Cardiovascular: Normal S1 and S2 regular rate rhythm no murmurs rubs or gallops Abdomen: Soft, nontender and nondistended with positive bowel sounds Extremities: No lower extremity edema Skin: Normal color - Assessment and Plan (1) JESSICA (acute kidney injury) Current Visit: Yes Status: Acute Assessment and Plan: Improving; will continue to monitor Nephrology following and appreciate recommendations (2) Hypertension Current Visit: Yes Status: Chronic Assessment and Plan: Blood pressure is better controlled overall. Will continue to monitor and adjust antihypertensive regimen. (3) Hypothyroidism Current Visit: Yes Status: Chronic Assessment and Plan: continue levothyroxin (4) Type 2 diabetes mellitus Current Visit: Yes Status: Chronic Assessment and Plan: Blood sugars are well controlled. Continue current insulin regimen. (5) Hyperkalemia Current Visit: Yes Status: Resolved Assessment and Plan: Resolved; continue to hold Entresto (6) Intractable nausea and vomiting Current Visit: Yes Status: Resolved Assessment and Plan: Advance diet as tolerates (7) Congestive heart failure Current Visit: Yes Status: Chronic Assessment and Plan: Patient with chronic combined systolic and diastolic congestive heart failure. Echocardiogram showed improved EF of 40-50% with moderate left ventricle and diastolic dysfunction. Currently Lasix on hold due to acute kidney injury. Also holding Entresto due to persistent hyperkalemia. DVT Prophylaxis: Heparin subcutaneous - Time Spent with Patient Total time spent is greater than 50% in coordination of care (as documented) at patient's floor/unit and/or counseling patient: Internal Medicine: Result - Labs CBC & Chem 7: 12/28/18 06:31 12/29/18 05:47 Labs: BMP 05/22/19 05:47 Sodium 137 Potassium 4.7 Chloride 107 Carbon Dioxide 20 L BUN 31 H Creatinine 1.71 H Glucose 120 H Calcium 7.8 L Urine 12/29/18 Range/Units 09:22 Urine Color Yellow (Yellow) Urine Clarity Clear (Clear) Urine pH 5.5 (5.0-8.0) pH Units Ur Specific [place] 1.023 (1.010-1.025) Urine Protein Negative (Neg-Trace) mg/dL Urine Glucose (UA) 100 H (Normal) mg/dL Consult Discharge Plan - Plan Referrals: Saloni Lombardo, SOAP DRIER OPERATOR [Primary Care Provider] - (2) Hypertension Qualifiers: Hypertension type: essential hypertension Qualified Code(s): I10 - Essential (primary) hypertension (3) Hypothyroidism Qualifiers: Hypothyroidism type: postoperative Qualified Code(s): E89.0 - Postprocedural hypothyroidism (4) Type 2 diabetes mellitus Qualifiers: Diabetes mellitus [facility] insulin use: with salvage determiner use Diabetes mellitus complication status: with unspecified complications Qualified Code(s): E11.8 - Type 2 diabetes mellitus with unspecified complications; Z79.4 - long term (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 (6) Intractable nausea and vomiting Qualifiers: Vomiting type: cyclical vomiting Qualified Code(s): G43.A1 - Cyclical vomiting, intractable (7) Congestive heart failure Qualifiers: Heart failure type: combined systolic and diastolic Heart failure chronicity: chronic Qualified Code(s): I50.42 - Chronic combined systolic (congestive) and diastolic (congestive) heart failure
[2018-12-30] MEDS: *HR* Heparin 5,000 UNIT/ML VIAL SQ SCH ×2 (06:06→17:04)
[2018-12-30] MEDS: Insulin LISPRO 300 UNITS/3 ML VIAL SQ SCH ×3 (08:50→16:59)
[2018-12-30] MEDS: Gabapentin 300 MG CAPSULE PO SCH (09:06)
[2018-12-30] MEDS: hydrALAZINE 25 MG TABLET PO SCH ×2 (09:06→16:58)
[2018-12-30] MEDS: Lactobacillus 1 EACH CAP.SPRINK PO SCH (09:06)
[2018-12-30] MEDS: Insulin DETEMIR 100 UNIT/ML X5UNITS SQ SCH (09:06)
[2018-12-30] MEDS: Metoclopramide 10 MG/2 ML VIAL IVP SCH ×3 (09:06→16:58)
[2018-12-30 09:34] LABS: Basophils # 0.1 K/mcL (0.0-0.2); Basophils % 1.1 %; Eosinophils # 0.2 K/mcL (0.0-0.6); Eosinophils % 2.8 %; Hematocrit 33.8 % (37.5-50.1); Hemoglobin 11.2 g/dL (12.9-16.9); Immature Granulocytes % 1.1 % (0-4); Lymphocytes # 2.2 K/mcL (0.6-4.6); Lymphocytes % 29.1 %; Mean Corpuscular HGB Conc 33.1 g/dL (31.6-35.5); Mean Corpuscular Hemoglobin 30.4 pg (28.0-33.3); Mean Corpuscular Volume 91.6 fL (83.0-100.0); Mean Platelet Volume 10.4 fL (9.4-12.4); Monocytes # 0.7 K/mcL (0.0-1.3); Monocytes % 9.7 %; Neutrophils # 4.2 K/mcL (1.6-8.9); Platelet Count 207 K/mcL (140-400); Red Blood Count 3.69 M/mcL (4.19-5.50); Red Cell Distribution Width 12.5 % (11.5-14.5); Segmented Neutrophils % 56.2 %
[2018-12-30 10:06] LABS: Calcium 7.8 mg/dL (8.6-10.3); Potassium 4.7 mEq/L (3.5-5.1)
[2018-12-30 16:24] VITALS: BP 168/79
--- NOTE | 2018-12-30 18:50 | Discharge Summary ---
Date of Encounter: 12/30/18 Time of Encounter: 11:00 - Discharge Diagnosis (1) JESSICA (acute kidney injury) Priority: Primary Status: Acute (2) Hypertension Priority: Secondary Status: Chronic Qualifiers: Hypertension type: essential hypertension Qualified Code(s): I10 - Essential (primary) hypertension (3) Hypothyroidism Priority: Secondary Status: Chronic Qualifiers: Hypothyroidism type: postoperative Qualified Code(s): E89.0 - Postprocedural hypothyroidism (4) Type 2 diabetes mellitus Priority: Secondary Status: Chronic Qualifiers: Diabetes mellitus extermination supervisor insulin use: with extermination supervisor use Diabetes mellitus complication status: with unspecified complications Qualified Code(s): E11.8 - Type 2 diabetes mellitus with unspecified complications; Z79.4 - watermelon inspector (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 (5) Hyperkalemia Priority: Secondary Status: Resolved (6) Intractable nausea and vomiting Priority: Secondary Status: Resolved Qualifiers: Vomiting type: cyclical vomiting Qualified Code(s): G43.A1 - Cyclical vomiting, intractable (7) Congestive heart failure Priority: Primary Status: Chronic Qualifiers: Heart failure type: combined systolic and diastolic Heart failure chronicity: chronic Qualified Code(s): I50.42 - Chronic combined systolic (congestive) and diastolic (congestive) heart failure Hospital course: Patient is 73-year-old male past medical history significant for diabetes on insulin, CHF, hypertension, thyroid cancer post thyroidectomy removal on Synthroid and CKD who presented due to leg weakness and near fall. Patient presented to the ED after 2 episodes of leg weakness which caused him to almost fall, he caught himself and did not fully the ground. He decided to come to the ED for further workup. In the ED his potassium was found to be 7.5 and he was given 1 L of fluid, sodium bicarbonate, insulin, dextrose, calcium gluconate, and Kayexalate. His potassium repeated was 6.5. EKG showed a left bundle branch block which was not concerning for his hyperkalemia. Patient's creatinine was noted to be 2.87, GFR of 22, BUN is 67, glucose of 193, negative troponins, BNP of 60, sodium of 129. Vital signs were stable with temperature 97.9, heart rate of 82, respirations of 18, blood pressure 145/79, satting 97% on 2 L by nasal cannula. Patient was admitted for further workup and management. During patients hospital stay his acute kidney injury improved after holding Entresto and spironolactone in addition to Lasix. Nephrology with recommendations for patient to restart Lasix but to hold and Entresto and spironolactone until seen cardiology as an outpatient. - Time Spent with Patient Total time spent providing and/or coordinating discharge services: Time spent: Less than 30 minutes - Discharge Medications Prescriptions: Continued Montelukast [Singulair] 10 mg PO HS #30 tablet Levothyroxine Sodium [Synthroid] 200 mcg PO QAM Gabapentin 800 mg PO TID Atorvastatin [Lipitor] 40 mg PO HS Carvedilol 12.5 mg PO BID Insulin Glargine,Hum.rec.anlog [Lantus Solostar] 70 units SQ HS Aspirin [Lo-Dose Aspirin EC] 81 mg PO DAILY Cholecalciferol (D-3) [Vitamin D] 1,000 unit PO DAILY Torsemide 50 mg PO BID Discontinued Sacubitril/Valsartan 97/103 mg [Entresto 97 mg-103 mg Tablet] 1 tab PO BID Spironolactone 25 mg PO DAILY Home Medications: Montelukast [Singulair] 10 mg PO HS #30 tablet 07/14/16 [Rx] Levothyroxine Sodium [Synthroid] 200 mcg PO QAM 05/07/17 [History] Aspirin [Lo-Dose Aspirin EC] 81 mg PO DAILY 12/24/18 [History] Atorvastatin [Lipitor] 40 mg PO HS 12/24/18 [History] Carvedilol 12.5 mg PO BID 12/24/18 [History] Cholecalciferol (D-3) [Vitamin D] 1,000 unit PO DAILY 12/24/18 [History] Gabapentin 800 mg PO TID 12/24/18 [History] Insulin Glargine,Hum.rec.anlog [Lantus Solostar] 70 units SQ HS 12/24/18 [History] Torsemide 50 mg PO BID 12/24/18 [History] Allergies/Adverse Reactions: Allergy/AdvReac Type Severity Reaction Status Date / Time Penicillins Allergy Hives Verified 03/23/15 09:54 ERNST Inhibitors AdvReac Cough Verified 03/23/15 09:53 Date of admission: 12/25/18 04:02 Primary care physician: Saloni Lombardo CNP Consults: 12/25/18 00:26 Consult to [employer] [CONS] Routine Reason for SW Consult: Pt has home health one day a week. Pt feels its not enough care at home. Pt lives with a room mate, who is terminally ill and unable to care for him 12/30/18 09:10 Consult to Occupational Therapy [CONS] Routine Comment: Evaluate, develop and implement POC Reason for Consult: possible rehab placement. Does patient have active BEDREST order?: No Is patient medically & hemodynamically stable?: Yes Patient assessed for mobility or mobilized this visit?: Yes - Constitutional Vitals: Temp Pulse Resp BP Pulse Ox 97.9 F 76 17 168/79 97 12/30/18 08:27 12/30/18 16:18 12/30/18 16:18 12/30/18 16:18 12/30/18 16:18 Exam: Gen.: Nonacute distress, alert and oriented 3 Skin: Normal color - Patient Status Disposition: Home Health Service Condition: Fair - Discharge Instructions Instructions: Heart Failure (DC), Hypothyroidism (DC), Diabetes Mellitus Type 2 in Adults (DC), Chronic Hypertension (DC), Anxiety (DC) Follow Up With: Saloni Lombardo CNP [Primary Care Provider] - (Please schedule follow up within 1 week. Office closed)
--- NOTE | 2018-12-30 18:57 | Physician Discharge Referral ---
Home Health/Hosp Referral Info Transfer to: Home Health - Diagnosis (1) JESSICA (acute kidney injury) Status: Acute (2) Hypertension Status: Chronic (3) Hypothyroidism Status: Chronic (4) Type 2 diabetes mellitus Status: Chronic (5) Hyperkalemia Status: Resolved (6) Intractable nausea and vomiting Status: Resolved (7) Congestive heart failure Status: Chronic - Respiratory Orders Smoking Cessation: Smoking cessation has been advised. For more information, call the [place] Tobacco Quit Line at 3-812-RLRC-NOW. - Services Needed Following services are medically necessary services: Nursing, Home Health Aide, Physical Therapy, Occupational Therapy - Transfer Medications Home Medications: Montelukast [Singulair] 10 mg PO HS #30 tablet 07/14/16 [Rx] Levothyroxine Sodium [Synthroid] 200 mcg PO QAM 05/07/17 [History] Aspirin [Lo-Dose Aspirin EC] 81 mg PO DAILY 12/24/18 [History] Atorvastatin [Lipitor] 40 mg PO HS 12/24/18 [History] Carvedilol 12.5 mg PO BID 12/24/18 [History] Cholecalciferol (D-3) [Vitamin D] 1,000 unit PO DAILY 12/24/18 [History] Gabapentin 800 mg PO TID 12/24/18 [History] Insulin Glargine,Hum.rec.anlog [Lantus Solostar] 70 units SQ HS 12/24/18 [History] Torsemide 50 mg PO BID 12/24/18 [History] Allergies/Adverse Reactions: Allergy/AdvReac Type Severity Reaction Status Date / Time Penicillins Allergy Hives Verified 03/23/15 09:54 ERNST Inhibitors AdvReac Cough Verified 03/23/15 09:53 Certification: Further, I certify that my clinical findings support that this patient is homebound (i.e. absences from home require considerable and taxing effort and are for medical reasons or confucianism services or infrequently or short duration when for other reasons) because: Homebound Reason: Patient requires assistance of a person or device to safely leave home Attestation: My signature below is to certify that this patient is under my care and that I, or nurse practitioner, or a physician's promotions assistant sales marketing working with me, has a [id number] encounter with this patient.
== END 2018-12-30 20:02 | disposition home health service (06) | DRG 683 ==
LOC: EMEROOARM 15:21 → 2NENU 15:21 → SUATTDRO 12-25 04:02
PROVIDERS: ADMIT Internal Medicine; ATTEND Hospitalist

== ENCOUNTER 2020-09-05 18:59 | Inpatient (IN) ==
[2020-09-05] MEDS ORDERED: Naloxone 0.4 MG/ML INJ IVP PRN (21:53)
[2020-09-05] MEDS ORDERED: Ondansetron ODT 4 MG TAB.RAPDIS SL PRN (21:53)
[2020-09-05] MEDS ORDERED: Dextrose Gel 15 GM/37.5 ML TUBE PO PRN ×2 (21:59)
[2020-09-05] MEDS ORDERED: *HR* Dextrose 50 % in Water (Vial) 50 ML VIAL IVP PRN (21:59)
[2020-09-05] MEDS ORDERED: Potassium Chloride Elixir 20 MEQ/15 ML UDC PO ONE (21:59)
[2020-09-05] MEDS ORDERED: D5% in Water 1,000 ML IVC PRN (21:59)
[2020-09-05] MEDS: Insulin LISPRO 300 UNITS/3 ML VIAL SUBQ SCH ×2 (22:21)
[2020-09-05] MEDS ORDERED: Ipratropium/Albuterol Neb 3 ML IH PRN (22:51)
[2020-09-05] MEDS ORDERED: levoFLOXacin 750 MG/150 ML 750 MG/150 ML BAG IVPB SCH (23:00)
[2020-09-05] MEDS: 0.9 % Sodium Chloride 1,000 ML IVC SCH (23:03)
[2020-09-06 00:22] LABS: Bilirubin,Urine Negative (Negative); Blood,Urine Negative (Negative); Clarity,Urine Clear (Clear); Color,Urine Light-Yellow (Yellow); Glucose,Urine (UA) Normal (Normal); Ketones,Urine Negative (Negative); Leukocyte Esterase,Urine Negative (Negative); Nitrite,Urine Negative (Negative); PH,Urine 5.5 pH Units (5.0-8.0); Protein,Urine Negative (Neg-Trace); Specific Gravity,Urine 1.012 (1.010-1.025); Urobilinogen,Urine Normal (Normal)
[2020-09-06 00:47] LABS: Basophils # 0.1 K/mcL (0.0-0.2); Basophils % 0.5 %; Eosinophils # 0.3 K/mcL (0.0-0.6); Eosinophils % 2.7 %; Hematocrit 33.8 % (37.5-50.1); Hemoglobin 10.8 g/dL (12.9-16.9); Immature Granulocytes % 0.3 % (0-4); Lymphocytes # 1.6 K/mcL (0.6-4.6); Mean Corpuscular Hemoglobin 27.8 pg (28.0-33.3); Mean Corpuscular Volume 87.1 fL (83.0-100.0); Mean Platelet Volume 10.7 fL (9.4-12.4); Monocytes # 0.9 K/mcL (0.0-1.3); Monocytes % 7.1 %; Neutrophils # 9.1 K/mcL (1.6-8.9); Platelet Count 248 K/mcL (140-400); Red Blood Count 3.88 M/mcL (4.19-5.50); Red Cell Distribution Width 14.6 % (11.5-14.5); Segmented Neutrophils % 76.4 %
[2020-09-06 00:50] LABS: INR 1.2; Prothrombin Time 14.3 Seconds (9.4-12.1)
[2020-09-06 01:05] LABS: Albumin 3.1 g/dL (3.5-5.7); Albumin/Globulin Ratio 0.9 (1.1-2.2); Bilirubin,Total 0.8 mg/dL (0.3-1.0); Calcium 7.2 mg/dL (8.6-10.3); Globulin 3.4 g/dL (2.4-3.5); Magnesium 1.8 mg/dL (1.6-2.6); Phosphorous 5.3 mg/dL (2.7-4.5); Potassium 3.4 mEq/L (3.5-5.1); Total Protein 6.5 g/dL (6.4-8.9)
[2020-09-06] MEDS ORDERED: Calcium Gluconate 1gm/50mL 1 GM/50 ML BAG IVPB ONE (01:11)
[2020-09-06 01:18] LABS: Thyroid Stimulating Hormone 0.504 mcIU/mL (0.340-5.600)
[2020-09-06] MEDS: Insulin LISPRO 300 UNITS/3 ML VIAL SUBQ SCH ×4 (08:09→22:17)
[2020-09-06] MEDS: 0.9 % Sodium Chloride 1,000 ML IVC SCH (11:36)
[2020-09-06] MEDS: *HR* Heparin 5,000 UNIT/ML VIAL SQ SCH ×2 (16:42→22:29)
[2020-09-06] MEDS: Aspirin 81 MG TAB.CHEW PO SCH (16:44)
[2020-09-06] MEDS: Finasteride 5 MG TABLET PO SCH (16:44)
[2020-09-06] MEDS: Gabapentin 300 MG CAPSULE PO SCH ×2 (16:44→22:29)
[2020-09-06] MEDS: carvediloL 6.25 MG TABLET PO SCH (16:44)
[2020-09-06] MEDS: Insulin DETEMIR 100 UNIT/ML X5UNITS SUBQ SCH (22:29)
[2020-09-06] MEDS: Acetaminophen 325 MG TABLET PO PRN (22:41)
[2020-09-07 04:25] LABS: Hematocrit 33.6 % (37.5-50.1); Hemoglobin 10.3 g/dL (12.9-16.9); Mean Corpuscular HGB Conc 30.7 g/dL (31.6-35.5); Mean Corpuscular Hemoglobin 26.8 pg (28.0-33.3); Mean Corpuscular Volume 87.3 fL (83.0-100.0); Mean Platelet Volume 10.6 fL (9.4-12.4); Platelet Count 244 K/mcL (140-400); Red Blood Count 3.85 M/mcL (4.19-5.50); Red Cell Distribution Width 14.6 % (11.5-14.5); White Blood Count 12.1 K/mcL (4.3-11.1)
[2020-09-07 04:44] LABS: Potassium 3.7 mEq/L (3.5-5.1)
[2020-09-07] MEDS: *HR* Heparin 5,000 UNIT/ML VIAL SQ SCH ×3 (06:15→20:29)
[2020-09-07] MEDS: Insulin LISPRO 300 UNITS/3 ML VIAL SUBQ SCH ×4 (08:17→20:30)
[2020-09-07] MEDS: Insulin DETEMIR 100 UNIT/ML X5UNITS SUBQ SCH ×2 (08:24→20:29)
[2020-09-07] MEDS: Finasteride 5 MG TABLET PO SCH (08:24)
[2020-09-07] MEDS: carvediloL 6.25 MG TABLET PO SCH ×2 (08:24→17:38)
[2020-09-07] MEDS: Gabapentin 300 MG CAPSULE PO SCH ×4 (08:24→20:29)
[2020-09-07] MEDS: Aspirin 81 MG TAB.CHEW PO SCH (08:25)
[2020-09-07] MEDS: Vancomycin Oral Soln 125 MG/2.5 ML UDC PO SCH ×4 (08:27→20:31)
[2020-09-08 01:28] LABS: BUN/Creatinine Ratio 29 (6-26); Blood Urea Nitrogen 37 mg/dL (8-23); Carbon Dioxide 25 mEq/L (23-29); Chloride 102 mEq/L (98-107); Glucose 176 mg/dL (70-105); Osmolality,Calculated 291 (280-300); Potassium 3.4 mEq/L (3.5-5.1); Sodium 134 mEq/L (136-145); eGFR For African Americans > 60 (> 60); eGFR For Non-African Americans 56 (> 60)
[2020-09-08] MEDS: *HR* Heparin 5,000 UNIT/ML VIAL SQ SCH ×3 (06:28→21:28)
[2020-09-08] MEDS: Vancomycin Oral Soln 125 MG/2.5 ML UDC PO SCH ×4 (08:48→21:28)
[2020-09-08] MEDS: Gabapentin 300 MG CAPSULE PO SCH ×4 (08:48→21:30)
[2020-09-08] MEDS: carvediloL 6.25 MG TABLET PO SCH ×2 (08:49→17:27)
[2020-09-08] MEDS: Finasteride 5 MG TABLET PO SCH (08:49)
[2020-09-08] MEDS: Aspirin 81 MG TAB.CHEW PO SCH (08:49)
[2020-09-08] MEDS: Insulin LISPRO 300 UNITS/3 ML VIAL SUBQ SCH ×4 (08:50→21:29)
[2020-09-08] MEDS: Insulin DETEMIR 100 UNIT/ML X5UNITS SUBQ SCH ×2 (08:55→21:29)
[2020-09-08 10:27] LABS: Potassium,Urine 25.5 mEq/L
[2020-09-08 12:03] LABS: Sodium, Urine 40.1 mEq/L
[2020-09-09] MEDS: *HR* Heparin 5,000 UNIT/ML VIAL SQ SCH ×3 (06:36→21:16)
[2020-09-09] MEDS: Insulin LISPRO 300 UNITS/3 ML VIAL SUBQ SCH ×4 (08:03→21:30)
[2020-09-09] MEDS: Finasteride 5 MG TABLET PO SCH (08:14)
[2020-09-09] MEDS: Vancomycin Oral Soln 125 MG/2.5 ML UDC PO SCH ×4 (08:14→21:49)
[2020-09-09] MEDS: Gabapentin 300 MG CAPSULE PO SCH ×4 (08:14→21:15)
[2020-09-09] MEDS: carvediloL 6.25 MG TABLET PO SCH ×2 (08:14→16:45)
[2020-09-09] MEDS: Aspirin 81 MG TAB.CHEW PO SCH (08:14)
[2020-09-09] MEDS: Insulin DETEMIR 100 UNIT/ML X5UNITS SUBQ SCH ×2 (08:20→22:19)
[2020-09-09] MEDS ORDERED: GuaiFENesin Liq 200 MG/10 ML UDC PO PRN (17:40)
[2020-09-10 00:43] LABS: Hematocrit 32.4 % (37.5-50.1); Mean Corpuscular HGB Conc 30.9 g/dL (31.6-35.5); Mean Corpuscular Hemoglobin 26.5 pg (28.0-33.3); Mean Corpuscular Volume 85.7 fL (83.0-100.0); Mean Platelet Volume 10.4 fL (9.4-12.4); Platelet Count 259 K/mcL (140-400); Red Blood Count 3.78 M/mcL (4.19-5.50); Red Cell Distribution Width 14.3 % (11.5-14.5); White Blood Count 7.3 K/mcL (4.3-11.1)
[2020-09-10 01:22] LABS: BUN/Creatinine Ratio 28 (6-26); Blood Urea Nitrogen 32 mg/dL (8-23); Carbon Dioxide 25 mEq/L (23-29); Chloride 104 mEq/L (98-107); Glucose 197 mg/dL (70-105); Osmolality,Calculated 296 (280-300); Potassium 3.7 mEq/L (3.5-5.1); Sodium 137 mEq/L (136-145); eGFR For African Americans > 60 (> 60); eGFR For Non-African Americans > 60 (> 60)
[2020-09-10] MEDS: *HR* Heparin 5,000 UNIT/ML VIAL SQ SCH ×3 (05:47→20:23)
[2020-09-10] MEDS: carvediloL 6.25 MG TABLET PO SCH ×2 (08:41→16:43)
[2020-09-10] MEDS: Calcium Gluconate 1gm/50mL 1 GM/50 ML BAG IVPB SCH ×2 (08:41→10:59)
[2020-09-10] MEDS: Vancomycin Oral Soln 125 MG/2.5 ML UDC PO SCH ×4 (08:41→20:23)
[2020-09-10] MEDS: Insulin LISPRO 300 UNITS/3 ML VIAL SUBQ SCH ×4 (08:42→23:45)
[2020-09-10] MEDS: Aspirin 81 MG TAB.CHEW PO SCH (08:42)
[2020-09-10] MEDS: Gabapentin 300 MG CAPSULE PO SCH ×4 (08:42→20:22)
[2020-09-10] MEDS: Furosemide 40 MG TABLET PO SCH ×2 (08:42→16:43)
[2020-09-10] MEDS: Finasteride 5 MG TABLET PO SCH (08:42)
[2020-09-10] MEDS: Cholecalciferol (D-3) 1,000 UNIT (25MCG) TABLET PO SCH (08:42)
[2020-09-10] MEDS: Insulin DETEMIR 100 UNIT/ML X5UNITS SUBQ SCH (08:47)
[2020-09-10] MEDS: Acetaminophen 325 MG TABLET PO PRN (13:20)
[2020-09-10] MEDS: Hydrocortisone 1% OINT 28 GM TUBE TP SCH ×2 (13:23→20:29)
[2020-09-10] MEDS: Sacubitril/Valsartan 97/103 MG 1 TAB TABLET PO SCH (20:22)
[2020-09-11] MEDS: Insulin DETEMIR 100 UNIT/ML X5UNITS SUBQ SCH ×3 (00:04→21:51)
[2020-09-11] MEDS: *HR* Heparin 5,000 UNIT/ML VIAL SQ SCH ×3 (04:37→21:52)
[2020-09-11] MEDS: Insulin LISPRO 300 UNITS/3 ML VIAL SUBQ SCH ×4 (07:18→21:51)
[2020-09-11] MEDS: Furosemide 40 MG TABLET PO SCH ×2 (09:24→18:19)
[2020-09-11] MEDS: Sacubitril/Valsartan 97/103 MG 1 TAB TABLET PO SCH ×2 (09:24→21:50)
[2020-09-11] MEDS: Cholecalciferol (D-3) 1,000 UNIT (25MCG) TABLET PO SCH (09:24)
[2020-09-11] MEDS: Aspirin 81 MG TAB.CHEW PO SCH (09:24)
[2020-09-11] MEDS: Gabapentin 300 MG CAPSULE PO SCH ×4 (09:25→21:49)
[2020-09-11] MEDS: carvediloL 6.25 MG TABLET PO SCH ×2 (09:25→18:20)
[2020-09-11] MEDS: Vancomycin Oral Soln 125 MG/2.5 ML UDC PO SCH ×3 (09:26→18:20)
[2020-09-11] MEDS: Finasteride 5 MG TABLET PO SCH (09:26)
[2020-09-11] MEDS: Hydrocortisone 1% OINT 28 GM TUBE TP SCH (12:49)
[2020-09-11 20:35] VITALS: BP 145/68
== END 2020-09-11 22:02 | DRG 371 ==
LOC: 3BNU → SUATTDRO 21:17 → 3NENU 09-06 00:49 → 3ANU 09-09 17:19
PROVIDERS: ADMIT Student in an Organized Health Care Education/Training Program; ATTEND Internal Medicine